=== PATIENT | female | born 1940 | race Caucasian/White ===

== ENCOUNTER → 2016-07-10 | Outpatient (CLI) | payer MEDICARE ==
[~2016-07-10] MED LIST: ALBU83IN INH; ASPI81TA85 PO; CRES5TAB PO; LISI-542 PO; MULT1TAB10 PO; NAPR500T PO; PRED20TA PO; TRAM50TA2 PO; ZOLO100T PO
--- NOTE | 2016-07-10 12:42 | ECGEPIP ---
Stationary ECG Study [facility] Test Date: 2016-07-10 Pat Name: KEY GRANADOS Department: Room: - Gender: F Marketing And Outreach Coordinator: : 1940 Requested By: Sandoval Boateng Order Number: [id number] Reading MD: Dania Thompson Measurements Intervals [place] Rate: 92 P: 66 AR: 140 QRS: -15 QRSD: 82 T: 54 QT: 352 QTc: 435 Interpretive Statements SINUS RHYTHM INFERIOR MYOCARDIAL INFARCTION, PROBABLY OLD NSSTTWA NO PRIOR Electronically Signed On 07-10-2016 12:41:43 EDT by Dania Thompson
[2016-07-10 13:27] LABS: CALCIUM LEVEL 9.2 MG/DL (8.8-10.2); CREATININE FOR GFR 1.23 MG/DL (0.55-1.02); GLOMERULAR FILTRATION RATE 45.1 (>39); POTASSIUM SERUM 4.5 MEQ/L (3.5-5.1)
== END ==
LOC: M LAB 11:54
PROVIDERS: ATTEND Ophthalmology
DX: I10 Essential (primary) hypertension (principal)

== ENCOUNTER → 2016-07-18 | Day surgery (SDC) | payer MEDICARE ==
[~2016-07-18] VITALS: Ht 157.5 cm; Wt 50.8 kg
[~2016-07-18] MED LIST changes: +ACETYLCHOLINE OPHTH SOLN 1% 2ML (MIOCHOL-E) As Ordered ONE; +BALANCED SALT IRRIGATION SOLUTION 500ML BAG (FOR OR EYE MACHINE) As Ordered ONE; +CEFUROXIME 1MG/0.1ML INTRACAMERAL INJ As Ordered ONE; +D5W/0.2% SODIUM CHLORIDE 1,000 ML IV SCH; +HEALON DUET (HEALON 10MG/ML 0.55ML & HEALON ENDOCOAT 30MG/ML 0.85ML) As Ordered ONE; +LIDOCAINE 0.75%/EPINEPHRINE 0.025% IN BSS 1ML SYR INTRACAMERAL (OR ONLY) As Ordered ONE; +LIDOCAINE 4% INJ 5 ML AMP As Ordered ONE; +MIDAZOLAM INJ 2 MG/2 ML VIAL (J2250) As Ordered ONE; +OFLOXACIN 0.3 % (OCUFLOX) OPTH SOL 5ML XX ONE; +PHENYLEPHRINE 2.5% OPHTH SOL 2ML XX ONE; +POVIDONE-IODINE 5% OPHTH PREP SOL 30ML As Ordered ONE; +PROPARACAINE 0.5% OPHTH SOL 15ML XX ONE; +TETRACAINE 0.5% OPHTH SOLN 4ML As Ordered ONE; +TOBRADEX OPHTH OINT 3.5 GM As Ordered ONE; +TROPICAMIDE 1% OPHTH SOLN 2ML XX ONE; +fentaNYL 100 MCG/2 ML INJECTION (J3010) As Ordered ONE
[2016-07-18 09:15] VITALS: BP 140/67
--- NOTE | 2016-07-19 10:52 | RO ---
DATE OF PROCEDURE: 07/18/2016 PREOPERATIVE DIAGNOSIS: Visually significant nuclear sclerotic cataract right eye. POSTOPERATIVE DIAGNOSIS: Visually significant nuclear sclerotic cataract right eye. PROCEDURE: Cataract extraction with use of phacoemulsification and placement of intraocular lens Himanshu AU00TO, 25.5 diopters, right eye. SURGEON: Luke Bueno DO ENGINE REPAIRER: ANESTHESIA: Local with monitored anesthesia care (MAC). COMPLICATIONS: None. POSTOPERATIVE CONDITION: Stable. INDICATION FOR SURGERY: Blurred vision right eye affecting patient's activities of daily living. DESCRIPTION OF PROCEDURE: The patient was seen in the preoperative area and properly identified. The correct operative eye was identified and marked. Attention was turned to that eye. The patient received topical antibiotics in the preoperative area. The patient then received topical dilating drops consisting of tropicamide and phenylephrine. The patient was then transferred to the operating room. The correct side was reidentified. The patient received topical anesthetics and antibiotics on the surface of the eye. The eye was prepped and draped in a sterile fashion. The upper and lower eyelids were isolated with Tegaderm tape, and the lids were held open with an adjustable speculum. Using a sideport blade, a paracentesis incision was made. Intraocular preservative-free lidocaine was then injected into the anterior chamber. Viscoelastic was then injected into the anterior chamber through the paracentesis. Using a 2.65 mm sharp-tipped keratome, the anterior chamber was entered via a temporal clear corneal incision. A continuous curvilinear capsulorrhexis was created with the aid of a 26-gauge cystotome and Utrata forceps. Hydrodissection was performed with balanced salt solution (BSS) on a blunt cannula until the nucleus was freely mobile. The crystalline lens was phacoemulsified and aspirated. Additional cohesive viscoelastic was placed into the capsular bag to deepen it. An Himanshu AU00TO, 25.5 diopters lens was placed into the capsular bag and confirmed by visualizing the continuous curvilinear capsulorrhexis. Additional irrigation and aspiration was used to remove cortical material and remaining viscoelastic. The clear corneal incision was hydrated with BSS on a blunt cannula. The lens was well positioned. The incisions were then tested for leaks and found to be negative. The eye was then palpated for appropriate pressure and adjusted accordingly with BSS. The eyelid speculum was then carefully removed. Tobradex ointment was placed in the eye. An eye patch and shield were then secured over the eye. The patient tolerated the procedure well and was discharged to the recovery unit in a stable condition. AISSATOU
== END | disposition home or self-care (01) ==
LOC: M SDC 07:17
PROVIDERS: ATTEND Ophthalmology
DX: H25.11 Age-related nuclear cataract, right eye (principal); I10 Essential (primary) hypertension; E78.00 Pure hypercholesterolemia, unspecified; M17.0 Bilateral primary osteoarthritis of knee; F32.9 Major depressive disorder, single episode, unspecified; J45.909 Unspecified asthma, uncomplicated; R06.02 Shortness of breath; Z88.5 Allergy status to narcotic agent; Z79.899 Other long term (current) drug therapy; Z79.82 Long term (current) use of aspirin; Z98.51 Tubal ligation status
CPT/HCPCS: 66984; J2250; J3010; V2632

== ENCOUNTER → 2016-08-01 | Day surgery (SDC) | payer MEDICARE ==
[~2016-08-01] VITALS: Ht 157.5 cm; Wt 50.8 kg
[~2016-08-01] MED LIST changes: -D5W/0.2% SODIUM CHLORIDE 1,000 ML IV SCH; +NS 1,000 ML IV SCH; -TETRACAINE 0.5% OPHTH SOLN 4ML As Ordered ONE; -fentaNYL 100 MCG/2 ML INJECTION (J3010) As Ordered ONE
[2016-08-01 09:30] VITALS: BP 139/71
--- NOTE | 2016-08-01 18:06 | RO ---
DATE OF PROCEDURE: 08/01/2016 PREOPERATIVE DIAGNOSIS: Visually significant nuclear sclerotic cataract left eye. POSTOPERATIVE DIAGNOSIS: Visually significant nuclear sclerotic cataract left eye. PROCEDURE: Cataract extraction with use of phacoemulsification, and placement of intraocular lens, AU00T0 25.0D ,left eye. SURGEON: Luke Bueno DO NEUROSURGERY RESEARCH DIRECTOR: ANESTHESIA: Local with monitored anesthesia care (MAC). COMPLICATIONS: None. POSTOPERATIVE CONDITION: Stable. INDICATION FOR SURGERY: Blurred vision left eye affecting patient's activities of daily living. DESCRIPTION OF PROCEDURE: The patient was seen in the preoperative area and properly identified. The correct operative eye was identified and marked. Attention was turned to that eye. The patient received topical antibiotics in the preoperative area. The patient then received topical dilating drops consisting of Tropicamide and Phenylephrine. The patient was then transferred to the operating room. The correct side was re-identified. The patient received topical anesthetics and antibiotics on the surface of the eye. The eye was prepped and draped in a sterile fashion. The upper and lower eyelids were isolated with Tegaderm tape, and the lids were held open with an adjustable speculum. Using a sideport blade, a paracentesis incision was made. Intraocular preservative-free lidocaine was then injected into the anterior chamber. Viscoelastic was then injected into the anterior chamber through the paracentesis. Using a 2.65 mm sharp-tipped keratome, the anterior chamber was entered via a temporal clear corneal incision. A continuous curvilinear capsulorrhexis was created with the aid of a 26g cystotome and utrata forceps. Hydrodissection was performed with balanced salt solution (BSS) on a blunt cannula until the nucleus was freely mobile. The crystalline lens was phacoemulsified and aspirated. Additional cohesive viscoelastic was placed into the capsular bag to deepen it. A AU00T0 25.0 lens D was placed into the capsular bag and confirmed by visualizing the continuous curvilinear capsulorrhexis. Additional irrigation and aspiration was used to remove cortical material and remaining viscoelastic. The clear corneal incision was hydrated with BSS on a blunt cannula. The lens was well positioned. The incisions were then tested for leaks, Resure sealant was placed on the main incision then retested and found to be negative. The eye was then palpated for appropriate pressure and adjusted accordingly with BSS. The eyelid speculum was carefully removed. A shield was then secured over the eye. The patient tolerated the procedure well and was discharged to the recovery unit in a stable condition. AISSATOU
== END | disposition home or self-care (01) ==
LOC: M SDC 06:29
PROVIDERS: ATTEND Ophthalmology
DX: H25.12 Age-related nuclear cataract, left eye (principal); I10 Essential (primary) hypertension; E78.00 Pure hypercholesterolemia, unspecified; M17.0 Bilateral primary osteoarthritis of knee; F32.9 Major depressive disorder, single episode, unspecified; J45.909 Unspecified asthma, uncomplicated; R06.83 Snoring; Z88.5 Allergy status to narcotic agent; Z79.899 Other long term (current) drug therapy; Z79.82 Long term (current) use of aspirin; Z98.51 Tubal ligation status
CPT/HCPCS: 66984; J2250; V2632

== ENCOUNTER 2018-09-28 14:09 | Inpatient (IN) | payer MEDICARE ==
[~2018-09-28] VITALS: Ht 157.5 cm; Wt 50.0 kg
[~2018-09-28 14:09] MED LIST changes: -ACETYLCHOLINE OPHTH SOLN 1% 2ML (MIOCHOL-E) As Ordered ONE; -BALANCED SALT IRRIGATION SOLUTION 500ML BAG (FOR OR EYE MACHINE) As Ordered ONE; -CEFUROXIME 1MG/0.1ML INTRACAMERAL INJ As Ordered ONE; -HEALON DUET (HEALON 10MG/ML 0.55ML & HEALON ENDOCOAT 30MG/ML 0.85ML) As Ordered ONE; -LIDOCAINE 0.75%/EPINEPHRINE 0.025% IN BSS 1ML SYR INTRACAMERAL (OR ONLY) As Ordered ONE; -LIDOCAINE 4% INJ 5 ML AMP As Ordered ONE; -MIDAZOLAM INJ 2 MG/2 ML VIAL (J2250) As Ordered ONE; +NAPR-837 PO; -NAPR500T PO; -NS 1,000 ML IV SCH; -OFLOXACIN 0.3 % (OCUFLOX) OPTH SOL 5ML XX ONE; -PHENYLEPHRINE 2.5% OPHTH SOL 2ML XX ONE; -POVIDONE-IODINE 5% OPHTH PREP SOL 30ML As Ordered ONE; -PROPARACAINE 0.5% OPHTH SOL 15ML XX ONE; -TOBRADEX OPHTH OINT 3.5 GM As Ordered ONE; -TROPICAMIDE 1% OPHTH SOLN 2ML XX ONE; +VITA100067 PO
[2018-09-28 15:41] VITALS: BP 142/87
--- NOTE | 2018-09-28 16:30 | HPEPDOC ---
General Date of Admission Sep 28, 2018 at 14:37 Date of Service: Sep 28, 2018 Chief Complaint The patient is a 78-year-old female admitted with a reason for visit of Right Fractured Hip. Source: Patient Exam Limitations: No limitations History of Present Illness 78-year-old female with past medical history of hypertension, hyperlipidemia, depression sent to the hospital from orthopedist office due to mechanical fall. Patient states that 4 months ago she fell on the sidewalk while chasing her pet and hurt her back. Since then patient has had multiple falls and has endorsed gait instability while walking. She was sent to a neurologist by her PMD who found that the patient had cervical spine stenosis with nerve impingement. Patient was subsequently referred to Orth0/human resources services specialist to whom she presented in the office today. The orthopedist ordered some x-rays and while the patient was getting x-rays she again suffered a mechanical loss and had a hip fracture. All the images are with ortho/human resources services specialist. patient is being admitted for surgical intervention by Dr. Ledbetter. Patient currently has no complaints. Denies any chest pain, shortness of breath, vomiting, fever, chills. Of note patient states that before all of this she was able to climb 2 flights of stairs without any difficulty. Patient does endorse having sensation of walking on a wooden block in her heels of both feet. Home Medications Scheduled Aspirin (Aspir 81) 81 Mg Tab, 81 MG PO DAILY, (Reported) Lisinopril (Lisinopril) 5 Mg Tab, 5 MG PO DAILY, (Reported) Multivitamins (Multivitamin Adults) 1 Tab Tab, 1 TAB PO DAILY, (Reported) Naproxen (Naprosyn) 500 Mg Tab, 500 MG PO DAILY, (Reported) take with food Rosuvastatin Calcium (Crestor) 5 Mg Tab, 5 MG PO DAILY, (Reported) Sertraline Hcl (Zoloft) 100 Mg Tab, 100 MG PO DAILY, (Reported) Vitamin D (Vitamin D) 1,000 Unit Cap, 1,000 UNIT PO DAILY, (Reported) Scheduled PRN Albuterol Sulf (Albuterol Sulfate) 2.5 Mg/3 Ml Nebu, 2.5 MG INH PRN PRN for SHORTNESS OF BREATH, (Reported) Tramadol HCl (Tramadol HCl) 50 Mg Tab, 50 MG PO PRN PRN for PAIN, (Reported) Allergies Coded Allergies: MS - Codeine (Verified Allergy, Unknown, BREAK OUT, 06/30/17) Social History * Smoker: Denies Alcohol: rarely Drugs: denies Review of Systems Constitutional: Denies: Chills, Fever, Malaise, Night Sweats, Weakness, Fatigue, Weight Loss, Lethargy, Other Eyes: Denies: Pain, Vision change, Conjunctivae inflammation, Eyelid inflammation, Redness, Other ENT: Denies: Head Aches, Ear Pain, Dysphagia, Sinus Congestion, Post Nasal Drip, Sore Throat, Epistaxis, Other Symptoms Skin: Denies: Rash, Lesions, Jaundice, Bruising, Itching, Dry, Breakdown, Nail Changes, Other Pulmonary: Denies: Dyspnea, Cough, Pleuritic Chest Pain, Other Symptoms Cardiovascular: Denies: Chest Pain, Palpitations, Orthopnea, Paroxysmal Noc. Dyspnea, Edema, Lt Headedness, Other Symptoms Gastrointestinal: Denies: Nausea, Vomiting, Abdominal Pain, Diarrhea, Constipa tion, Melena, Hematochezia, Other Symptoms Genitourinary: Denies: Dysuria, Frequency, Incontinence, Retention Hematologic: Denies: Bruising, Bleeding Excessively, Petecchia, Purpura, Enlarged Lymph Nodes, Other Hematologic Endocrine: Denies: Polydipsia, Polyphagia, Polyuria, Heat Intolerance, Cold Intolerance, Other Endocrine Sx Musculoskeletal: Denies: Neck Pain, Back Pain, Shoulder Pain, Arm Pain, Hand Pain, Leg Pain, Foot Pain, Joint Pain, Muscle Pain, Spasms, Other Symptoms Neurological: Denies: Weakness, Numbness, Incoordination, Change in speech, Confusion, Seizures, Other Symptoms Physical Examination General Exam: Positive: Alert, Cooperative, No Acute Distress Eye Exam: Positive: PERRLA ENT Exam: Positive: Atraumatic, Mucous membr. moist/pink Neck Exam: Positive: Supple, +2 carotid pulse wo bruit Chest Exam: Positive: Clear to auscultation, Normal air movement Heart Exam: Positive: Rate Normal, Normal S1, Normal S2, Other; Negative: Gallops, Murmurs, Rubs Abdomen Exam: Positive: Normal bowel sounds, BS Hyperactive, BS Hypoactive, Soft; Negative: Tenderness, Mass Extremity Exam: Positive: Normal pulses; Negative: Clubbing, Cyanosis, Edema Neuro Exam: Positive: Normal Speech, Strength at 5/5 X4 ext, Cranial Nerves 3- 12 NL Psych Exam: Positive: Mood NL, Oriented x 3 Vital Signs Vital Signs Date Time Temp Pulse Resp B/P (MAP) Pulse Ox O2 Delivery O2 Flow Rate FiO2 09/28/18 15:41 97.1 83 18 142/87 (105) 95 Plan / VTE VTE Prophylaxis Ordered?: Yes Plan Plan 78-year-old female with right greater trochanter hip fracture and cervical spine stenosis with nerve impingement sent to the hospital as direct admit for surgical intervention by Dr. Ledbetter #cervical spine stenosis with nerve impingement -Dr. Ledbetter consulted and aware of patient -Dr. Ledbetter has all imaging -f/u recs regarding surgical intervention -PT ordered #rt greater trochanter fracture -Dr. Ledbetter aware -no surgical intervention needed as per him #HTN/HLD/Depression -cont home meds DVT PPx- Lovenox Dispo: per orthopedics LEVI COLLINS MD Sep 28, 2018 16:30
[2018-09-28] MEDS ORDERED: CHOL100012 PO (17:00)
[2018-09-28] MEDS ORDERED: OCUVTAB PO (17:01)
[2018-09-28] MEDS ORDERED: CBD OIL PO (17:06)
[2018-09-28 17:11] LABS: CREATININE FOR GFR 1.28 MG/DL (0.55-1.30); GLOMERULAR FILTRATION RATE 42.8 (>39); POTASSIUM SERUM 4.5 MEQ/L (3.5-5.1)
[2018-09-28 17:36] LABS: HEMATOCRIT 38.8 % (36.0-47.0); HEMOGLOBIN 12.8 g/dl (12.0-15.5); MEAN CORPUSCULAR HEMOGLOBIN 29.2 pg (27.0-33.0); MEAN CORPUSCULAR VOLUME 88.6 fl (80.0-96.0); PLATELET COUNT, AUTOMATED 235 10^3/uL (150-450); RED BLOOD COUNT 4.38 10^6/uL (4.00-5.40); WHITE BLOOD COUNT 16.4 10^3/uL (4.0-10.0)
[2018-09-28] MEDS ORDERED: PILL CUTTER 1 EACH XX PRN (18:45)
[2018-09-28] MEDS: ACETAMINOPHEN TAB 650MG DOSE (2X325MG) PO PRN (21:32)
[2018-09-28] MEDS: diphenhydrAMINE 25 MG CAP PO PRN (21:32)
[2018-09-28 22:00] VITALS: BP 135/70
[2018-09-29] MEDS: ACETAMINOPHEN TAB 650MG DOSE (2X325MG) PO PRN ×3 (05:25→21:19)
[2018-09-29 06:00] VITALS: BP 132/71
[2018-09-29 07:18] LABS: INR 1.08; PROTHROMBIN TIME 13.7 SECONDS (11.8-14.0)
[2018-09-29 07:28] LABS: ALBUMIN 3.3 GM/DL (3.2-5.2); BILIRUBIN,TOTAL 0.6 MG/DL (0.2-1.0); CALCIUM LEVEL 9.1 MG/DL (8.8-10.2); CREATININE FOR GFR 1.38 MG/DL (0.55-1.30); GLOMERULAR FILTRATION RATE 39.3 (>39); POTASSIUM SERUM 4.7 MEQ/L (3.5-5.1); TOTAL PROTEIN 6.4 GM/DL (6.4-8.2)
[2018-09-29] MEDS: ROSUVASTATIN 10 MG TAB (CRESTOR) PO SCH (09:51)
[2018-09-29] MEDS: ENOXAPARIN 30 MG/0.3 ML SYR (J1650) SC SCH (09:52)
[2018-09-29] MEDS: SERTRALINE 100 MG TAB PO SCH (09:52)
[2018-09-29] MEDS: LISINOPRIL 5 MG TAB PO SCH (09:52)
--- NOTE | 2018-09-29 11:29 | CR ---
DATE OF CONSULTATION: 09/28/2018 CHIEF COMPLAINT: Right hip pain and ataxia/balance problems. HISTORY: This 78-year-old was seen in my office at the request of neurology on an urgent basis to evaluate cervical spinal stenosis. She had been having trouble since June 2018 and on July 15 she fell. She says she was okay after that. She was having some balance trouble. Then on August 12, she fell again backwards on a sidewalk, bumped her head and has had some numbness in her hands, as well as her feet since that episode, it has not gotten worse since that episode. She denies a history of stroke or cerebrovascular accident. While in our office we appreciated that she was utilizing a wheeled walker with brakes with some difficulty and at the conclusion of our appointment we arranged for the patient be seen by physical therapy to get fitted with a standard walker. On her way to the elevator, apparently the patient lost her balance, fell and that is how she injured her right hip. She was sent to the hospital for admission. The hospitalist service evaluated her for potential preoperative clearance. Next, imaging studies included CT scan of the cervical spine done at [place] reflecting significant spondylosis at C4-5, C5-6 and C6-7 and general diffuse disease through the cervical spine. Some osteophyte formation anteriorly and posteriorly at C7 is appreciated. Plain films reflected the same, likely 1 to 2 mm anterolisthesis C4-5 with flexion. MRI reflects severe spinal stenosis at C4-5 level, moderate at C5-6, mild to moderate at C6-7, mild to moderate at other locations in the cervical spine, cord signal changes appreciated in C4-5 level consistent with myelomalacia. ALLERGIES: CODEINE. MEDICAL HISTORY: Includes hypercholesterolemia and hypertension. Medical issues include pulmonary disease, hypercholesterolemia, hypertension. PAST SURGICAL HISTORY: Includes excision of ovarian cyst, tubal ligation, carpal tunnel release, cataracts bilaterally. SOCIAL HISTORY: She is a . She does not smoke and never did smoke. 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 FAMILY HISTORY: Noncontributory. REVIEW OF SYSTEMS: CONSTITUTIONAL: She is not complaining of fever, chills, weight loss. CARDIOVASCULAR: She is not complaining of chest pain. MUSCULOSKELETAL: She is actually not complaining of any severe neck pain. RESPIRATORY: She has not been having problems with coughing or respiratory acute illness recently. GASTROINTESTINAL: Denies weight loss or gain. GENITOURINARY: No changes in urinary frequency. SKIN: No complaints. NEUROLOGIC: She is complaining of sensory changes and balance issues, see history of present illness. PSYCHOLOGICAL: She is not complaining of the anxiety or depression problems. ENDOCRINE: She is not complaining of endocrine problems. HEMATOLOGIC: She denies bleeding problems. ALLERGIES: Denies environmental allergies. Denies latex allergy. Reports codeine sensitivity. MEDICATIONS: - rosuvastatin - sertraline - naproxen - lisinopril We have just initiated gabapentin while in the office. PHYSICAL EXAMINATION: Alert, oriented and cooperative. Mood and affect are appropriate. Appears to be her stated age of 78 or a bit younger. She has a clear voice. No mass or tenderness to palpation anteriorly in the cervical spine. Very little discomfort with palpation posteriorly in the cervical spine. Cervical motion did not seem to precipitate neck discomfort. Upper extremities with decreased sensation in the palms of hands and fingers, as well as the bottoms of the feet in the lower extremities. Positive Valdez's reflex in both upper extremities. Brachioradialis inverted in both upper extremities. Triceps reflexes is +1 to 2 in both upper extremities, biceps. Absent lower extremity reflexes, Babinski's upgoing bilaterally. We did not appreciate clonus. Deep tendon reflexes are +4 however at both knees, +2 at both ankles. Gait is somewhat wide-based and clearly antalgic. We were not able to do tandem walking or Romberg because of the ataxia. She was noted be using a wheeled walker and actually slipped in the exam room precipitating my recommendation that she get fitted with a standard walker VITAL SIGNS: Temperature 97.8, height 61 inches tall. Weight 110 pounds. BMI 21. X-RAYS: She had x-rays of the right hip, which reflected a minimally displaced greater trochanter fracture. IMPRESSION 1. Right hip greater trochanter fracture. 2. Cervical myelopathy due to spinal stenosis predominately at C4-5 and C5-6, lesser degree C6-7. RECOMMENDATIONS: Direct admission to the hospital. Optimization by the hospitalist team. Fit with an aspen rigid collar to protect the cervical spine and provide stability postoperatively. Next, we talked about surgery and we considered the posterior, as well as anterior surgery. I think in this 78-year-old that anterior surgery in her case would be reasonable at C4-5 and C5-6, potentially extending to C6-7. In my opinion, the myelopathy is due to the issue at C4-5 and likely the mild hypermobility there. Next, I talked with the patient about the proposed surgery, about risks, including but not limited to, need for additional surgery, paralysis, and other problems. We talked about using donor bone. The patient agrees to proceed. Next, at this time, I do not recommend intervention on the hip. Next, due to respect from recovery from the surgery, I was very careful not to promise significant improvement. The purpose of the surgery is to keep things from getting worse. I suspect that to some degree the spinal cord injury occurred when she fell on August 12 and her symptoms may not improve. There is a possibility of improvement, however. Again, I stressed that the surgical intervention is to keep things from getting worse. She understands. Next, we anticipate medical optimization through the hospitalist service. AISSATOU
[2018-09-29 14:09] VITALS: BP 129/66
--- NOTE | 2018-09-29 19:29 | IPNPDOC ---
Text Note Date of Service The patient was seen on 09/29/18. NOTE This is a 78-year-old female who sustained a fall. Resultant injury was a right greater trochanter fracture. This is nondisplaced and not felt to require surgical intervention. However, the patient has significant cervical spine stenosis and is to undergo anterior approach decompression surgery for that. The patient relates that she has had worsening pain and decreased function, especially to her upper extremities. Physical exam: HEENT: Her neck is fairly supple with no adenopathy or thyromegaly and I do not elicit any cervical spine or cervical paravertebral muscle tenderness. Cardiovascular: Regular rate and rhythm with a normal S1 and S2 and no appreciable murmur or bruit. Respiratory: Clear to auscultation with no rhonchi, rales, wheezes or cough. Abdomen: Soft, nontender, nondistended. Extremities: Patient tolerates hip flexion and sitting at the bedside with dangling without significant discomfort or immobility. Neuro: Patient notes paresthesias and decreased strength to her upper extremities, especially to her hands and fingers Assessment and plan: #1. Right greater trochanter fracture. Again, this is nondisplaced and is not felt to require surgical intervention. She will continue with physical therapy under the direction of the orthopedic service. #2. Cervical spine stenosis. Patient has symptoms of paresthesias and weakness, especially to her upper extremities. She will undergo surgery tomorrow. She does not have significant underlying cardiopulmonary risk factors and so she is medically cleared for the procedure. Patient does have hypertension, but it is currently well controlled. We will continue to follow with her postoperatively. VS,Denisbone, I+O VS, Denisbone, I+O Laboratory Tests 09/29/18 06:45 Calcium Level 9.1, Aspartate Amino Transf (AST/SGOT) 20, Alanine Aminotransferase (ALT/SGPT) 24, Alkaline Phosphatase 78, Total Bilirubin 0.6, Total Protein 6.4, Albumin 3.3 Vital Signs Date Time Temp Pulse Resp B/P (MAP) Pulse Ox O2 Delivery O2 Flow Rate FiO2 09/29/18 14:09 98.6 85 16 129/66 (87) 93 I&O- Last 24 Hours up to 6 AM 09/29/18 06:00 Intake Total 360 ml Balance 360 ml KESHAWN FRANCOIS MD Sep 29, 2018 19:29
[2018-09-29] MEDS: diphenhydrAMINE 25 MG CAP PO PRN (21:19)
[2018-09-29] MEDS: NS 1,000 ML IV SCH (21:20)
[2018-09-30] VITALS (9 sets, daily range): BP systolic 137–150; BP diastolic 70–81
[2018-09-30 06:24] LABS: BASO # 0.1 10^3/uL (0.0-0.2); BASO % 0.6 % (0.0-1.0); EOS # 0.8 10^3/uL (0.0-0.50); EOS % 7.7 % (0.0-3.0); HEMATOCRIT 35.5 % (36.0-47.0); HEMOGLOBIN 11.4 g/dl (12.0-15.5); LYMPH # 1.1 10^3/uL (1.5-4.5); MEAN CORPUSCULAR HGB CONC 32.1 g/dl (32.0-36.5); MEAN CORPUSCULAR VOLUME 90.3 fl (80.0-96.0); MONO # 1.1 10^3/uL (0.0-0.8); NEUTROPHILS # 6.7 10^3/uL (1.8-7.7); NEUTROPHILS % 69.3 % (36.0-66.0); PLATELET COUNT, AUTOMATED 211 10^3/uL (150-450); RED BLOOD COUNT 3.93 10^6/uL (4.00-5.40); WHITE BLOOD COUNT 9.7 10^3/uL (4.0-10.0)
[2018-09-30 06:37] LABS: INR 1.07; PROTHROMBIN TIME 13.6 SECONDS (11.8-14.0)
[2018-09-30 06:52] LABS: CALCIUM LEVEL 8.4 MG/DL (8.8-10.2); CREATININE FOR GFR 1.38 MG/DL (0.55-1.30); GLOMERULAR FILTRATION RATE 39.3 (>39); POTASSIUM SERUM 4.3 MEQ/L (3.5-5.1)
[2018-09-30] MEDS: METAMUCIL (PSYLLIUM) PACKET PO SCH (09:00)
[2018-09-30] MEDS ORDERED: PERCOCET 5MG/325MG TAB As Ordered ONE (09:30)
[2018-09-30] MEDS ORDERED: GABAPENTIN 300 MG CAP PO ONE (09:30)
[2018-09-30] MEDS ORDERED: methylPREDNISolone INJ 125 MG/2 ML VIAL (J2930) IV ONE (09:30)
[2018-09-30] MEDS ORDERED: PERCOCET 5MG/325MG TAB PO ONE (09:30)
[2018-09-30] MEDS ORDERED: methylPREDNISolone INJ 125 MG/2 ML VIAL (J2930) As Ordered ONE (09:31)
[2018-09-30] MEDS ORDERED: ceFAZolin 2 GM/D5W 50 ML IV BAG (J0690 PER 500MG) As Ordered ONE (09:41)
[2018-09-30] MEDS ORDERED: fentaNYL 250 MCG/5 ML INJECTION (J3010) As Ordered ONE (10:09)
[2018-09-30] MEDS ORDERED: LIDOCAINE 2% INJ 100 MG/5 ML SDV (FOR ANES.) As Ordered ONE (10:09)
[2018-09-30] MEDS ORDERED: HYDROCORTISONE INJ 250 MG VIAL (J1720) As Ordered ONE (10:09)
[2018-09-30] MEDS ORDERED: METOCLOPRAMIDE INJ 10MG/2ML VIAL (J2765) As Ordered ONE (10:09)
[2018-09-30] MEDS ORDERED: MIDAZOLAM INJ 2 MG/2 ML VIAL (J2250) As Ordered ONE (10:10)
[2018-09-30] MEDS ORDERED: ONDANSETRON 4MG/2ML VIAL (J2405) As Ordered ONE (10:10)
[2018-09-30] MEDS ORDERED: ROCURONIUM BROMIDE 50 MG/5 ML VIAL As Ordered ONE (10:10)
[2018-09-30] MEDS ORDERED: PROPOFOL 200 MG/20 ML VIAL As Ordered ONE (10:10)
[2018-09-30] MEDS ORDERED: SUGAMMADEX SODIUM 500 MG/5 ML VIAL (BRIDION) As Ordered ONE (10:10)
[2018-09-30] MEDS ORDERED: PHENYLephrine HCL 500 MCG/5 ML (100MCG/ML) SYRINGE (J2370) As Ordered ONE (12:12)
[2018-09-30] MEDS ORDERED: ePHEDrine SULFATE 25 MG/5 ML(5MG/ML) SYRINGE As Ordered ONE (12:12)
[2018-09-30] MEDS ORDERED: PERCOCET 5MG/325MG TAB PO PRN ×2 (13:45→15:30)
[2018-09-30] MEDS ORDERED: ONDANSETRON 4MG/2ML VIAL (J2405) IV PRN ×2 (13:45→14:30)
[2018-09-30] MEDS ORDERED: fentaNYL 100 MCG/2 ML INJECTION (J3010) IV PRN (13:45)
--- NOTE | 2018-09-30 15:27 | REP ---
INTRAOPERATIVE VIEWS CERVICAL SPINE: Two intraoperative views of the cervical spine are performed in the lateral projection. The first image shows an anterior probe with the tip of the probe at the C4-5 disc level. Visualized cervical vertebral bodies are normal in height. There is mild diffuse spurring. A second images is performed 1 hour and 55 minutes later and shows placement of an anterior metallic plate with screws at the C4, C5 and C6 levels, with evidence of discectomy and disc spacers at C4-5 and C5-6. The structures are well aligned. Electronically Signed by Gamal Morales MD 10/01/2018 07:50 A
[2018-09-30] MEDS ORDERED: MORPHINE 4 MG/ML 1ML VIAL/SYRINGE (J2270) IV PRN (15:30)
[2018-09-30] MEDS: ENOXAPARIN 30 MG/0.3 ML SYR (J1650) SC SCH (16:30)
[2018-09-30] MEDS: NS 1,000 ML IV SCH (16:35)
[2018-09-30] MEDS: LR 1,000 ML IV SCH ×2 (18:52→21:12)
[2018-09-30] MEDS: LISINOPRIL 5 MG TAB PO SCH (19:02)
[2018-09-30] MEDS: SERTRALINE 100 MG TAB PO SCH (19:03)
[2018-09-30] MEDS: ROSUVASTATIN 10 MG TAB (CRESTOR) PO SCH (19:03)
[2018-09-30] MEDS: diphenhydrAMINE 25 MG CAP PO PRN (21:10)
[2018-10-01 02:00] VITALS: BP 139/76
[2018-10-01 06:00] VITALS: BP 130/73
[2018-10-01 06:13] LABS: HEMATOCRIT 31.6 % (36.0-47.0); HEMOGLOBIN 10.2 g/dl (12.0-15.5); MEAN CORPUSCULAR HEMOGLOBIN 29.8 pg (27.0-33.0); MEAN CORPUSCULAR HGB CONC 32.3 g/dl (32.0-36.5); MEAN CORPUSCULAR VOLUME 92.4 fl (80.0-96.0); PLATELET COUNT, AUTOMATED 185 10^3/uL (150-450); RED BLOOD COUNT 3.42 10^6/uL (4.00-5.40); WHITE BLOOD COUNT 12.6 10^3/uL (4.0-10.0)
[2018-10-01 06:22] LABS: INR 1.15; PROTHROMBIN TIME 14.4 SECONDS (11.8-14.0)
--- NOTE | 2018-10-01 07:43 | IPNPDOC ---
Text Note Date of Service The patient was seen on 09/30/18. NOTE The patient was seen postoperatively. Patient has undergone corpectomy with an terior cervical spine fusion due to cervical stenosis. She also has nondisplaced trochanter fracture. PHYSICAL EXAM: HENT: Neck is encased in cervical spine collar. Incision site is clean and nonbleeding. Cardiovascular: Regular rate and rhythm with a normal S1 and S2. Respiratory: Clear to auscultation. Abdomen: Nondistended, nontender, bowel tones present Extremities: No peripheral edema, pulses are palpable. Neuro: Patient states she already notes some increased mobility and strength to her hands and fingers, some decreased tingling Assessment/plan: #1. Cervical spine stenosis. The patient had had symptoms of paresthesias and weakness, especially to her upper extremities. She is now status post decompression with corpectomy and anterior cervical spine fusion. Further management and mobility/rehabilitation will be per the surgery service. She otherwise appears comfortable and denies significant pain. #2. Right greater trochanter fracture. The patient had sustained a fall resulting in a fracture. It is nondisplaced and not felt to require surgical intervention at this time. She will continue with physical therapy as directed. VS,Fishbone, I+O VS, Fishbone, I+O Laboratory Tests 10/01/18 05:58 Red Blood Count 3.42 L, Mean Corpuscular Volume 92.4, Mean Corpuscular Hemoglobin 29.8, Mean Corpuscular Hemoglobin Concent 32.3, Red Cell Distribution Width 13.4 Vital Signs Date Time Temp Pulse Resp B/P (MAP) Pulse Ox O2 Delivery O2 Flow Rate FiO2 10/01/18 06:00 97.8 83 16 130/73 (92) 95 10/01/18 05:03 1.0 I&O- Last 24 Hours up to 6 AM 10/01/18 06:00 Intake Total 3948 ml Output Total 550 ml Balance 3398 ml KESHAWN FRANCOIS MD Oct 01, 2018 07:43
[2018-10-01 09:00] VITALS: BP_SYST 130; BP_SYST 131; BP_DIAS 71; BP_DIAS 73
[2018-10-01] MEDS ORDERED: CEPACOL LOZENGE PO PRN (09:00)
[2018-10-01] MEDS ORDERED: MIRALAX *UNIT DOSE* 17GM PACKET PO SCH (09:00)
[2018-10-01] MEDS ORDERED: PERC5TAB12 PO (09:07)
[2018-10-01] MEDS ORDERED: BENA25CA4 PO (09:07)
[2018-10-01 10:00] VITALS: BP 130/72
[2018-10-01] MEDS: METAMUCIL (PSYLLIUM) PACKET PO SCH (10:18)
[2018-10-01] MEDS: ENOXAPARIN 30 MG/0.3 ML SYR (J1650) SC SCH (10:18)
[2018-10-01 10:19] VITALS: BP 131/71
[2018-10-01] MEDS: SERTRALINE 100 MG TAB PO SCH (10:19)
[2018-10-01] MEDS: LISINOPRIL 5 MG TAB PO SCH (10:19)
[2018-10-01] MEDS: ROSUVASTATIN 10 MG TAB (CRESTOR) PO SCH (10:20)
--- NOTE | 2018-10-01 10:55 | DS.PDOC ---
Discharge Summary General Date of Admission Sep 28, 2018 at 14:37 Date of Discharge October 01, 2018 Primary Care Physician: Jr Aponte Collins Specialist/Consultants Involve: Travis Ledbetter MD Discharge Summary PROCEDURES PERFORMED DURING STAY: Corpectomy, decompression and anterior fusion to C4-5 and C5-6. ADMITTING DIAGNOSES: 1. Right greater trochanter fracture, cervical myelopathy due to spinal stenosis. DISCHARGE DIAGNOSES: 1. Right greater trochanter fracture nondisplaced, cervical myelopathy due to spinal stenosis, dyslipidemia, essential hypertension. COMPLICATIONS/CHIEF COMPLAINT: Right Fractured Hip. HISTORY OF PRESENT ILLNESS/HOSPITAL COURSE: This is a 78-year-old female who is in her physician's office being evaluated for cervical myelopathy when she slipped and fell with her walker and sustained a right nondisplaced greater trochanter fracture. The patient was admitted to the medical floor. The right greater trochanter fracture was felt not to require surgical intervention. She has tolerated some weightbearing and mobility. Subsequent plans were for her to have decompression and anterior fusion to C4-5 and C5-6. The patient underwent this surgery without complications or postop events. Plans are for her to go to the acute rehabilitation unit for ongoing physical therapy. She did not have any exacerbation of her other underlying medical problems during this hospital stay.. DISCHARGE MEDICATIONS: Please see below. ALLERGIES: Please see below. PHYSICAL EXAMINATION ON DISCHARGE: VITAL SIGNS: Please see below. GENERAL: The patient has been cooperative and in good spirits with no distress HEENT: Oral mucosa is moist, no scleral injection or nasal congestion NECK: The patient is in a cervical collar, operative wound site is clean CARDIOVASCULAR EXAMINATION: Regular rate and rhythm RESPIRATORY EXAMINATION: Remains clear to auscultation ABDOMINAL EXAMINATION: Soft, nontender, nondistended EXTREMITIES: No peripheral edema, pulses are palpable NEUROLOGICAL EXAMINATION: Patient has reported decreased tingling to her hands and arms. LABORATORY DATA: Please see below. IMAGING: PROGNOSIS: ACTIVITY: As tolerated with walker. DIET: As tolerated DISCHARGE PLAN: Patient is to be transitioned to the acute rehabilitation unit for ongoing physical therapy. Again, please note that the patient has not undergone surgical intervention for her right greater trochanter fracture as it was not felt to be necessary. The patient will follow-up with her primary care provider Dalton Aponte after discharge from the facility. DISPOSITION: . DISCHARGE INSTRUCTIONS: 1. Discharge medications and prescriptions reviewed. ITEMS TO FOLLOWUP ON ON OUTPATIENT: 1. . DISCHARGE CONDITION: Stable. TIME SPENT ON DISCHARGE: Greater than 40 minutes. Vital Signs/I&Os Vital Signs Date Time Temp Pulse Resp B/P (MAP) Pulse Ox O2 Delivery O2 Flow Rate FiO2 10/01/18 10:19 131/71 10/01/18 09:00 97.7 85 16 95 10/01/18 05:03 1.0 I&O- Last 24 Hours up to 6 AM 10/01/18 05:59 Intake Total 3888 ml Output Total 550 ml Balance 3338 ml Laboratory Data Labs 24H Laboratory Tests 2 10/01/18 05:58: Nucleated Red Blood Cells % (auto) 0.0, Prothrombin Time 14.4H, Prothromb Time International Ratio 1.15 CBC/BMP Laboratory Tests 10/01/18 05:58 Red Blood Count 3.42 L, Mean Corpuscular Volume 92.4, Mean Corpuscular Hemoglobin 29.8, Mean Corpuscular Hemoglobin Concent 32.3, Red Cell Distribution Width 13.4 Discharge Medications Scheduled Aspirin (Aspir 81) 81 Mg Tab, 81 MG PO DAILY, (Reported) Cannabidiol (Cbd Oil) Btl, 1 DROP PO BID, (Reported) USES ONE DROPPERFUL DIRECTED Cholecalciferol (Vitamin D3) (Vitamin D3) 1,000 Unit Tab.chew, 1,000 UNIT PO DAILY, (Reported) Diphenhydramine HCl (Benadryl) 25 Mg Capsule, 25 MG PO QPM Lisinopril (Lisinopril) 5 Mg Tab, 5 MG PO DAILY, (Reported) Naproxen (Naprosyn) 500 Mg Tab, 500 MG PO DAILY, (Reported) take with food Rosuvastatin Calcium (Crestor) 5 Mg Tab, 5 MG PO DAILY, (Reported) Sertraline Hcl (Zoloft) 100 Mg Tab, 100 MG PO DAILY, (Reported) Vits A,C,E/Lutein/Minerals (Ocuvite with Lutein Tablet) 1 Each Tablet, 1 TAB PO DAILY, (Reported) Scheduled PRN Albuterol Sulf (Albuterol Sulfate) 2.5 Mg/3 Ml Nebu, 1 INH INH Q4-6H PRN for SHORTNESS OF BREATH, (Reported) Oxycodone HCl/Acetaminophen (Percocet 5-325 mg Tablet) 1 Each Tablet, 1 TAB PO Q4H PRN for PAIN Allergies Coded Allergies: codeine (Verified Allergy, Intermediate, RASH, CONFUSION, 09/30/18) KESHAWN FRANCOIS MD Oct 01, 2018 10:55
--- NOTE | 2018-10-02 11:37 | RO ---
DATE OF PROCEDURE: 09/30/2018 PREOPERATIVE DIAGNOSIS: Cervical myelopathy due to severe cervical spinal stenosis at C4-5 and C5-6. POSTOPERATIVE DIAGNOSIS: Cervical myelopathy due to severe cervical spinal stenosis at C4-5 and C5-6. The patient technically has a central cord/Fl[place] grade D. PROCEDURES PERFORMED: Include the following: Partial corpectomy of C5 including removal of disc material at C4-5 and removal of superior vertebral body corpus at C5, and posterior longitudinal ligament for decompression of severe spinal stenosis causing myelopathy, partial corpectomy of C6 including disc removal and removal of the superior vertebral body corpus at C6 level and posterior longitudinal ligament for decompression of the spinal cord. Approximately 50% of the vertebral corpus between C4 and C5 was removed due to severe degenerative changes, anterior cervical arthrodesis at C4-5, including endplate preparation, additional level anterior cervical fusion at C5-6 including endplate preparation, use of structural allograft at the C4-5 and C5-6, application of anterior cervical instrumentation C5, 6, 7. SURGEON: Dr. Travis Ledbetter [employer]: Chao Curry, Physician Supervisor [employer] ANESTHESIA: General. ESTIMATED BLOOD LOSS: Less than 40 mL, replaced with crystalloid. INDICATIONS FOR PROCEDURE: Include cervical myelopathy secondary to severe cervical spinal stenosis at C4-5 and C5-6, partial corpectomy indicated in this case because of complete disc space collapse and severe osteophyte and cervical spondylosis beyond typical. Consent reviewed in detail including a nova discussion of the pathology involved and the procedures proposed, which include a partial corpectomy at C4-5, C5-6 and possibly C6-7 if that level is felt to unstable during the surgery. We talked about alternatives including doing nothing as well as laminectomy, and we also spoke about potential risks of the procedure including but not limited to pain, failure, swallowing trouble, hoarseness, paralysis, , incomplete relief, need for more surgery and other issues. The patient understands that this procedure is primarily to stop the progression of myelopathy and that there may be neurologic deficit at the conclusion of the procedure. She also understands that there are multiple levels that are degenerative and that we are addressing at primary levels responsible for her neurologic deficits. COMPONENTS USED: Include DePuy [place] anterior cervical plate size 32 mm and size 5 x 7 VG2 graft times two. DESCRIPTION OF PROCEDURE: Identified in the holding area, site and side verified, brought to the operating room. Once general anesthesia was administered, she was positioned for the operative procedure, bump between the shoulder blades. Shoulders gently taped. The patient received perioperative antibiotics as well as a preoperative steroid, 250 mg of methylprednisolone given because of the significant cervical myelopathy present. Next, once the time-out was accomplished and she was sterilely prepped and draped and I and the division service manager were comfortable with the patient's positioning, we began the procedure. The incision was outlined with a marking pen based on the right anterior approach to the cervical spine. I utilized 3.5 loupe magnification. Mr. Curry, my assistant front office manager, stood on the patient's left side, I on the patient's right side. I utilized 3.5 loupe magnification. The incision was made with a 10 blade knife, developed down through skin and subcuticular tissues. The platysma was identified, elevated and divided exposing the sternocleidomastoid and the omohyoid muscle the dissection continued superior to the omohyoid. The carotid sheath was identified. Significant cervical fibrosis was appreciated during the dissection. The dissection continued medial to the carotid sheath into the anterior prevertebral fascia. The prevertebral fascia was elevated in several leaves protecting the esophagus. Mr. Curry utilized S retractors and other retractors to help with exposure. The large osteophyte at C5-6 was identified and exposed. A bayonet spinal needle was placed at C5-6 level and a cross-table lateral x-ray was taken verifying our position. The exposure was further developed, exposing C4-5 and elevated the longus coli muscle at its medial border to allow retractor placement. Leksells were utilized to remove large disc osteophyte complex at C4-5 and C5-6. Distraction pins were placed at C4-5. Curettes were utilized to remove additional disc material as well as pituitaries and then the oval bur was utilized to remove the superior corpus of C5 to allow adequate exposure of the posterior longitudinal ligament for decompression. Inferior C4 portion was also removed bringing osteophyte at C4 inferior. Once this was accomplished, I was able to utilize curved curettes to elevate the posterior longitudinal ligament, and this was removed using #2 Kerrisons. This exposed the thecal sac, which was directly visualized and effectively decompressed. Next, once this was accomplished, rasps were utilized; the 5 x 7 rasp followed by a 5 x 7 sound utilized, and this had significantly helped distract and expose the level. Next, a 5 x7 graft was selected, soaked in concentrated bacitracin and implanted. Once the graft was implanted, distractor pin was removed from C4, plugged with bone wax, oval bur was utilized to further contour the anterior vertebral body at C4 to allow plate placement. Next, we moved to the C5-6 level with a distraction pin placed at C6. I explored to the superior aspect of C6-7. That level appeared to be stable and not mobile. C5-6 level was appreciated to be mobile, and I was able to distract across C5-6. 11 blade was utilized to remove disc annulus complex followed by pituitaries and curettes to remove endplate. Next, again required to use the oval bur to remove some of the vertebral body corpus inferior C5 and superior vertebral body corpus of C6, quite significant amount, to facilitate this exposure in this 78-year-old female. The dissection continued down to the posterior longitudinal ligament, which was then elevated with curettes and removed with Kerrisons exposing the thecal sac. Rasps again utilized, sound and then placement of a 5 x 7 graft in a similar fashion; it was tamped into place. Distraction pins were then removed, and the anterior vertebral corpus was further contoured with the oval bur. Next, irrigation was accomplished. I selected the 32 mm plate. It fit appropriately. The soft tissue protectors were secured by Mr. Curry, and I utilized a double drill guide at the C5 level, drilled with a 12 mm drill and placed 13 mm screws at the C5 level. 13 mm had been based on measurement of normal corpus to be about 15 mm. Next, drill guide single was utilized to drill and place the screws at the C4 level, 14 mm screws angled superiorly placed here. The C6 screws were then drilled with a single drill guide and the 14 mm screws placed at C6. The locking devices were engaged and next a cross-table lateral x-ray was obtained to verify plate and graft placement. Next, vertebral body height had been restored and alignment was good. Next, irrigation was again accomplished, all retractors removed, all distractor pins were removed and distractor pin holes plugged with wax. The wound was inspected for bleeding. No active bleeding appreciated. Next, incision was approximated with interrupted stitch, deep dermis with interrupted stitch. Dermabond applied to skin. At the time of extubation, the patient was placed in a cervical collar to provide additional stability. We had elected not to proceed to the C6-7 level as her neurologic deficit was felt to be due to the severe stenosis at C4-5 and also of C5-6 with myelomalacia present predominately at the C4-5 and posterior to the C5 level. It was felt that extension of the fusion to the C6-7 level would increase the risk of potential osteoporotic vertebral body and surgical construct collapse or instability. Next, the patient was able to be extubated, was moved to the recovery room in good condition, was appreciated to be moving all four extremities and conversant. Next, Mr. Curry was present and participated in the entirety of the case in the capacity of psychiatric assistant. Next, for further details please refer to medical record.
== END 2018-10-01 12:00 | DRG 471 ==
LOC: M MS5PR 14:37
PROVIDERS: ADMIT Orthopaedic Surgery; ATTEND Internal Medicine
PROC: 00NW0ZZ Release Cervical Spinal Cord, Open Approach (ICD-10-PCS; 2018-09-30)
PROC: 0RG20K0 Fusion of 2 or more Cervical Vertebral Joints with Nonautologous Tissue Substitute, Anterior Approach, Anterior Column, Open Approach (ICD-10-PCS; principal; 2018-09-30 08:50)
DX: M48.02 Spinal stenosis, cervical region (principal); S72.114A Nondisplaced fracture of greater trochanter of right femur, initial encounter for closed fracture; M50.021 Cervical disc disorder at C4-C5 level with myelopathy; I10 Essential (primary) hypertension; E78.5 Hyperlipidemia, unspecified; F32.9 Major depressive disorder, single episode, unspecified; W18.09XA Striking against other object with subsequent fall, initial encounter; Y92.538 Other ambulatory health services establishments as the place of occurrence of the external cause; Z79.82 Long term (current) use of aspirin; Z79.1 Long term (current) use of non-steroidal anti-inflammatories (NSAID); Z79.899 Other long term (current) drug therapy; Z88.5 Allergy status to narcotic agent; R27.0 Ataxia, unspecified; Z98.41 Cataract extraction status, right eye; Z98.42 Cataract extraction status, left eye

== ENCOUNTER 2018-10-01 09:43 | Inpatient (IN) | payer MEDICARE ==
[~2018-10-01] VITALS: Ht 157.5 cm; Wt 59.4 kg
[~2018-10-01 09:43] MED LIST changes: +BENA25CA4 PO; +CBD OIL PO; +CHOL100012 PO; +OCUVTAB PO; +PERC5TAB12 PO
[2018-10-01 12:05] VITALS: BP 156/69
[2018-10-01] MEDS ORDERED: ALBUTEROL SULFATE 2.5 MG/0.5 ML INH NEB SOLN NEB PRN (13:00)
[2018-10-01] MEDS ORDERED: PILL CUTTER 1 EACH XX PRN (13:15)
[2018-10-01] MEDS: oxyCODONE 5MG TAB PO PRN (13:45)
[2018-10-01] MEDS: ACETAMINOPHEN TAB 650MG DOSE (2X325MG) PO PRN ×2 (13:52→21:31)
[2018-10-01 14:00] VITALS: BP_SYST 130; BP_SYST 163; BP_DIAS 70; BP_DIAS 71
--- NOTE | 2018-10-01 15:33 | HPEPDOC ---
Automotive Engineer Note DATE OF ADMISSION: 10/01/18 SOURCE OF ADMISSION INFORMATION: patient and [facility] records CHIEF COMPLAINT: cervical decompression and fusion HISTORY OF PRESENT ILLNESS: 78 year old female with a past medical history of hypertension hyperlipidemia depression who fell while chasing her pet, hurt her back and suffered a right greater trochanter hip fracture, had been followed by neurology for cervical stenosis with upper extremity weakness and paresthesias with worsening falls and admitted to [facility] emergency department on 09/28/18. She was evaluated by orthopedic surgery to have been following her as an outpatient for both her cervical stenosis and right hip fracture. 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 She underwent an anterior corpectomy decompression and fusion surgery on 09/30/18 without post-op complications. She was placed in a cervical collar, evaluated by therapy, found to have impairments in mobility and ADLs below her prior level of function and deemed medically appropriate for discharge to ARU on 10/01/18. Upon arrival patient reports she could not swallow her breakfast this morning due to pain and reports a cough. She states she has an inhaler at home she has not needed to use in years. REVIEW OF SYSTEMS: The following is a completed review of systems and has been reviewed. Review of systems otherwise unremarkable. PAIN: Patient self reports mild neck pain EYES: No recent vision changes EARS, NOSE, & THROAT: +throat pain and dysphagia CARDIOVASCULAR: Denies chest pain or palpitations PULMONARY: +cough GASTROINTESTINAL: Denies constipation/diarrhea GENITOURINARY: +urinary stress incontinence (chronic) MUSCULOSKELETAL: generalized weakness NEUROLOGICAL:bilateral UE weakness and paresthesias SKIN: scattered ecchymosis PSYCHIATRIC: Unremarkable All other review of systems found to be negative. PAST MEDICAL HISTORY: as per HPI PAST SURGICAL HISTORY: excision of ovarian cyst, tubal ligation, carpal tunnel release, cataracts bilaterally. ALLERGIES: Please see below. MEDICATIONS: Please see below. 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 GENERAL: Pleasant and cooperative. No acute distress. HEENT: PERRL. Extraocular movements intact. Clear conjunctiva, +cervical collar CARDIOVASCULAR: Regular rate and rhythm. No murmurs, rubs, or gallops LUNGS: No wheezes. scattered rhonchi ABDOMEN: Soft, nontender, nondistended. Positive bowel sounds. Normal active bowel sounds NEUROLOGICAL: Alert and oriented times three. Cranial nerves II through XII grossly intact. Sensation decreased to light touch LUE, otherwise intact throughout other 3 limbs Brisk patellar reflexes, bilat clonus x 1 beat, +Valdez's bilat EXTREMITIES: 3+\5 strength bilateral upper extremities. 3+\5 strength right lower extremity. 3+/5 strength in left lower extremity. SKIN:, RUE swelling and scattered ecchymosis anterior neck incision c/d/i without induration LABORATORY DATA: Please see below. IMAGING: Imaging documentation personally reviewed by record FUNCTIONAL STATUS: Premorbid: Modified Independent with all activities of daily life as well as mobility with RW On Admission: Contact guard for functional transfers and bed mobility, requiring assistance with toileting and dressing. GOALS: Mod-I with RW community distances, balance training, Mod-I stairs, bathing, toileting, dressing, medical optimization, assess for DME needs ASSESSMENT:78-year-old F with past medical history of cervical stenosis and right hip fracture who presents status post cervical decompression. PLAN: 1. Rehab: PT- strengthen/stretch/improve ROM bilat LE, balance training OT- strengthen/stretch/improve ROM bilat UE, avoid lifitn anything greater than 2 pounds, avoid arm wheelchair propulsion IMMIGRATION LAW SPECIALIST: dysphagia evaluation- placed on puree and nectar- MBS scheduled for tomorrow 2. Neuro: cervical stenosis with falls and generalized weakness with paresthesias, s/p cervical ACDF, neck brace to be work at all times -Avoid NSAIDs and ASA to assist in fusion -avoid delirogenic meds 3. CArdio: hld and HTN c/ statin and ROSALIA-I medicine consulted to assist in management 4. Resp: concern for atelectasis, CXR ordered, Duonebs started in addition to Robitussin, encourage incentive spirometry 5. ENT: concern for prevertebral soft tissue swelling post-op, neck soft tissue X-ray ordered, will consider oral steroids 6. GI ppx: Protonix 7. DVT ppx: lovenox, will order LE doppler and RUE doppler to r/o DVT given swelling 8. Pain: tylneol, oxycodone prn 9. Psych: Zoloft and benadryl for insomnia prn 10. Dispo: tbd POST ADMISSION PHYSICIAN EVALUATION: Medical and functional status: Description of medical status, medical assessment: As above. Rehabilitation diagnosis and current and prior cold morbid medical conditions as above. Risk of complications and plans to mitigate them as above. Description of functional status current status is as above. Prior status as above. Status compared to preadmission: There are no clinically significant differences between the patient's current status and the information described on the preadmission screening document. Treatment plan anticipated: Treatment plan is as described above. Required disciplines including physical therapy, occupational therapy, others as noted above Intensity of services: 3 hours a day, 6 days a week. Special considerations: There are no specific special or safety considerations that would likely preclude immediate implementation of an intensive rehabilitation program or subsequently influence the plan of care ATTESTATION: Considering all the information above, it is my best judgment that this patient requires intensive rehabilitation therapy as described above and an inpatient hospital environment due to the complexity of nursing, medical, and rehabilitation needs required by the patient. Furthermore, this patient can reasonably be expected to participate in an benefit from an inpatient rehabilitation stay with an interdisciplinary team approach to the delivery of rehabilitation care under the direction and supervision of rehabilitation physician PROGNOSIS: good ESTIMATED LENGTH OF [id number] days. PROJECTED DISCHARGE DESTINATION: Home with family support and any durable medical equipment required to increase functional safety and mobility TIME SPENT COUNSELING AND COORDINATING INITIAL CARE: Greater than 70 minutes. Vital Signs Vital Sign - Last 24 Hours 10/01/18 12:05 Temp 98.0 Pulse 96 Resp 18 B/P (MAP) 156/69 (98) Pulse Ox 90 Home Medications Scheduled Cannabidiol (Cbd Oil) Btl, 1 DROP PO BID, (Reported) USES ONE DROPPERFUL DIRECTED Cholecalciferol (Vitamin D3) (Vitamin D3) 1,000 Unit Tab.chew, 1,000 UNIT PO DAILY, (Reported) Diphenhydramine HCl (Benadryl) 25 Mg Capsule, 25 MG PO QPM Lisinopril (Lisinopril) 5 Mg Tab, 5 MG PO DAILY, (Reported) Rosuvastatin Calcium (Crestor) 5 Mg Tab, 5 MG PO DAILY, (Reported) Sertraline Hcl (Zoloft) 100 Mg Tab, 100 MG PO DAILY, (Reported) Vits A,C,E/Lutein/Minerals (Ocuvite with Lutein Tablet) 1 Each Tablet, 1 TAB PO DAILY, (Reported) Scheduled PRN Albuterol Sulf (Albuterol Sulfate) 2.5 Mg/3 Ml Nebu, 1 INH INH Q4-6H PRN for SHORTNESS OF BREATH, (Reported) Oxycodone HCl/Acetaminophen (Percocet 5-325 mg Tablet) 1 Each Tablet, 1 TAB PO Q4H PRN for PAIN Allergies Coded Allergies: codeine (Verified Allergy, Intermediate, RASH, CONFUSION, 09/30/18) A-FIB/CHADSVASC A-FIB History Current/History of A-Fib/PAF?: No TOMI MILLER MD Oct 01, 2018 15:33
[2018-10-01] MEDS: guaiFENesin SYRUP 200 MG/10 ML UDC PO SCH ×3 (16:00→21:31)
[2018-10-01] MEDS: LANSOPRAZOLE SUSPENSION 30 MG/10 ML ORAL SYRINGE (FIRST-LANSOPRAZOLE) PO SCH (16:48)
[2018-10-01] MEDS: IPRATROPIUM 0.5MG/ALBUTEROL 2.5MG INH SOL UD 3ML (DUONEB)(J7620) NEB SCH ×2 (17:08→20:00)
--- NOTE | 2018-10-01 18:21 | REP ---
HISTORY: Pain and swelling. TECHNIQUE: Multiple ultrasonographic images of the deep venous structures of the bilateral thighs were obtained from the common femoral vein to the popliteal vein along with Doppler interrogation and color flow Doppler images. FINDINGS: There is no abnormal echogenic material seen within any of the visualized deep venous structures that would suggest acute thrombosis. Coaptation is unremarkable throughout. Doppler interrogation shows an expected response to respiratory variability and augmentation. The color flow images show what appears to be a normal vascular pattern throughout. IMPRESSION: There is no ultrasonographic evidence of deep venous thrombosis involving any of the visualized deep venous structures of the bilateral thighs, as described above. Electronically Signed by Michael Morgan DO 10/02/2018 10:32 A
--- NOTE | 2018-10-01 18:23 | REP ---
HISTORY: Pain and swelling. TECHNIQUE: Multiple ultrasonographic images of the deep venous structures of the right upper extremity were obtained to rule out deep venous thrombosis. FINDINGS: There is no abnormal echogenic material seen in any of the visualized deep venous structures of the right upper extremity. Coaptation where applicable is appropriate throughout. Augmentation shows an expected response throughout. IMPRESSION: Negative exam. Electronically Signed by Michael Morgan DO 10/02/2018 10:33 A
--- NOTE | 2018-10-01 19:28 | REP ---
CHEST, TWO VIEWS: Two views of the chest are performed. I have no prior study for comparison. There is blunting of the left costophrenic angle compatible with mild left pleural fluid or thickening. There is adjacent linear fibroatelectatic change. Right lung is clear. There is mild cardiomegaly with left ventricular prominence. The mediastinal silhouette is unremarkable. There are mild degenerative changes of the spine. IMPRESSION: Mild left pleural fluid or thickening with adjacent linear fibroatelectatic change. Electronically Signed by Gamal Morales MD 10/02/2018 09:57 A
--- NOTE | 2018-10-01 19:45 | REP ---
SOFT TISSUES NECK: Three AP and lateral views of the soft tissues of the neck were performed one day following anterior cervical discectomy and fusion. There is prevertebral soft tissue swelling noted at the level of the surgery. The adjacent airway is widely patent with no airway narrowing. Anterior metallic plate and screws are noted with disc spacers at C4-5 and C5-6. Diffuse facet arthropathy is noted. There is moderate disc space narrowing with subchondral sclerosis and spurring at C6-7 disc space. IMPRESSION: There is prevertebral soft tissue swelling one day post anterior cervical discectomy and fusion surgery at C4 through C6 levels. There is no narrowing of the airway. Electronically Signed by Gamal Morales MD 10/02/2018 10:01 A
[2018-10-01 21:30] VITALS: BP 142/61
[2018-10-01] MEDS: diphenhydrAMINE INJ 50MG/ML VIAL (J1200) IV PRN (21:31)
[2018-10-02 06:33] VITALS: BP 151/72
[2018-10-02 07:19] LABS: BASO # 0.1 10^3/uL (0.0-0.2); BASO % 0.6 % (0.0-1.0); EOS # 0.2 10^3/uL (0.0-0.50); EOS % 1.9 % (0.0-3.0); HEMOGLOBIN 10.8 g/dl (12.0-15.5); LYMPH # 0.7 10^3/uL (1.5-4.5); LYMPH % 6.3 % (24.0-44.0); MEAN CORPUSCULAR HGB CONC 32.7 g/dl (32.0-36.5); MEAN CORPUSCULAR VOLUME 91.7 fl (80.0-96.0); MONO # 1.2 10^3/uL (0.0-0.8); MONO % 10.1 % (0.0-5.0); NEUTROPHILS # 9.3 10^3/uL (1.8-7.7); NEUTROPHILS % 80.6 % (36.0-66.0); PLATELET COUNT, AUTOMATED 202 10^3/uL (150-450); WHITE BLOOD COUNT 11.6 10^3/uL (4.0-10.0)
[2018-10-02 07:43] LABS: ALBUMIN 2.7 GM/DL (3.2-5.2); BILIRUBIN,TOTAL 0.6 MG/DL (0.2-1.0); CALCIUM LEVEL 8.8 MG/DL (8.8-10.2); CREATININE FOR GFR 1.09 MG/DL (0.55-1.30); GLOMERULAR FILTRATION RATE 51.5 (>39); POTASSIUM SERUM 4.3 MEQ/L (3.5-5.1)
[2018-10-02] MEDS: IPRATROPIUM 0.5MG/ALBUTEROL 2.5MG INH SOL UD 3ML (DUONEB)(J7620) NEB SCH ×4 (07:53→20:00)
[2018-10-02] MEDS: LANSOPRAZOLE SUSPENSION 30 MG/10 ML ORAL SYRINGE (FIRST-LANSOPRAZOLE) PO SCH (08:26)
[2018-10-02] MEDS: guaiFENesin SYRUP 200 MG/10 ML UDC PO SCH ×3 (08:26→21:00)
[2018-10-02] MEDS: oxyCODONE 5MG TAB PO PRN ×2 (08:27→13:50)
[2018-10-02] MEDS: SERTRALINE 100 MG TAB PO SCH (08:27)
[2018-10-02] MEDS: LISINOPRIL 5 MG TAB PO SCH (08:27)
[2018-10-02] MEDS: METAMUCIL (PSYLLIUM) PACKET PO SCH (08:27)
[2018-10-02] MEDS: ACETAMINOPHEN TAB 650MG DOSE (2X325MG) PO PRN ×3 (08:27→23:15)
[2018-10-02] MEDS: ROSUVASTATIN 10 MG TAB (CRESTOR) PO SCH (08:28)
[2018-10-02] MEDS: ENOXAPARIN 30 MG/0.3 ML SYR (J1650) SC SCH (09:04)
[2018-10-02] MEDS ORDERED: VARIBAR PUDDING 40% w/v 230ML TUBE As Ordered ONE (11:13)
[2018-10-02] MEDS ORDERED: E-Z-PAQUE 96% w/w SUSP 176GM BTL As Ordered ONE (11:14)
[2018-10-02] MEDS ORDERED: VARIBAR NECTAR 40% w/v 240ML SUSP BTL As Ordered ONE (11:14)
[2018-10-02] MEDS ORDERED: BARIUM SULFATE 700 MG TABLET (E-Z-DISK) As Ordered ONE (11:28)
[2018-10-02] MEDS ORDERED: CEPACOL LOZENGE PO PRN (12:30)
[2018-10-02] MEDS ORDERED: methylPREDNISolone INJ 125 MG/2 ML VIAL (J2930) IV ONE (13:00)
--- NOTE | 2018-10-02 13:00 | IPNPDOC ---
Text Note Date of Service The patient was seen on 10/02/18. NOTE Sujjective: Seen post return from barium swallow exam. denies chest pain, denies SOB, denies cough, chills. Objective: GENERAL: NAD SKIN : Warm, dry anterior cervical surgical incision without erythema, induration, drainage HEENT: cervical collar, Atraumatic, normocephalic, PERRL, moist mucous membrane CARDIOVASCULAR: irregular rate and rhythm, S1S2, no JVD, no edema, distal pulses + palpable RESP: CTAB, no accessory muscle use noted ABDOMEN: BS+ non distended non tender MS: no joint deformities NEURO: Alert and oriented x 3, CN2-12 grossly intact PSYCH: no anxiety or agitation, appropriate mood and affect A/P Cervical stenosis with radiculopathy -S/P anterior corpectomy decompression and fusion surgery 09/30/18 -rehabilitation per primary team Dysphagia -failed barium swallow today -had no issues with swallow prior to surgery(possibly related to perioperative intubation) -NPO for now-aspiration precautions -NG tube placement -repeat swallow evel in 72 hours Right Hip Fracture -non displaced -evaluated by ortho with recommendations for conservative management -pain mgt as needed with PT/OT rehabilitation -fall precautions Hypertension -lisinopril 5mg daily -monitoring per unit protocol DVT prophylaxis -lovenox daily/TEDs VS,Fishbone, I+O VS, Fishbone, I+O Laboratory Tests 10/02/18 07:03 Red Blood Count 3.60 L, Mean Corpuscular Volume 91.7, Mean Corpuscular Hemoglobin 30.0, Mean Corpuscular Hemoglobin Concent 32.7, Red Cell Distribution Width 13.3, Neutrophils (%) (Auto) 80.6 H, Lymphocytes (%) (Auto) 6.3 L, Monocytes (%) (Auto) 10.1 H, Eosinophils (%) (Auto) 1.9, Basophils (%) (Auto) 0.6, Neutrophils # (Auto) 9.3 H, Lymphocytes # (Auto) 0.7 L, Monocytes # (Auto) 1.2 H, Eosinophils # (Auto) 0.2, Basophils # (Auto) 0.1, Calcium Level 8.8, Aspartate Amino Transf (AST/SGOT) 20, Alanine Aminotransferase (ALT/SGPT) 14, Alkaline Phosphatase 89, Total Bilirubin 0.6, Total Protein 6.0 L, Albumin 2.7 L Vital Signs Date Time Temp Pulse Resp B/P (MAP) Pulse Ox O2 Delivery O2 Flow Rate FiO2 10/02/18 08:57 16 10/02/18 08:27 161/87 10/02/18 06:33 98.4 98 94 I&O- Last 24 Hours up to 6 AM 10/02/18 05:59 Intake Total 240 ml Output Total 168 ml Balance 72 ml WAYNE CHAPMAN RN REHAB Oct 02, 2018 13:00
[2018-10-02] MEDS: NS 1,000 ML IV SCH (13:50)
[2018-10-02 14:00] VITALS: BP 150/90
[2018-10-02 20:00] VITALS: BP 141/90
[2018-10-02] MEDS: diphenhydrAMINE INJ 50MG/ML VIAL (J1200) IV PRN (23:15)
[2018-10-03 05:47] VITALS: BP 153/70
[2018-10-03 07:02] LABS: HEMATOCRIT 31.9 % (36.0-47.0); HEMOGLOBIN 10.6 g/dl (12.0-15.5); MEAN CORPUSCULAR HEMOGLOBIN 29.3 pg (27.0-33.0); MEAN CORPUSCULAR HGB CONC 33.2 g/dl (32.0-36.5); MEAN CORPUSCULAR VOLUME 88.1 fl (80.0-96.0); PLATELET COUNT, AUTOMATED 248 10^3/uL (150-450); RED BLOOD COUNT 3.62 10^6/uL (4.00-5.40); WHITE BLOOD COUNT 10.2 10^3/uL (4.0-10.0)
[2018-10-03] MEDS: IPRATROPIUM 0.5MG/ALBUTEROL 2.5MG INH SOL UD 3ML (DUONEB)(J7620) NEB SCH ×4 (07:15→19:14)
[2018-10-03 07:30] LABS: ALBUMIN 2.6 GM/DL (3.2-5.2); BILIRUBIN,TOTAL 0.4 MG/DL (0.2-1.0); CALCIUM LEVEL 8.5 MG/DL (8.8-10.2); CREATININE FOR GFR 1.09 MG/DL (0.55-1.30); GLOMERULAR FILTRATION RATE 51.5 (>39); POTASSIUM SERUM 3.8 MEQ/L (3.5-5.1); TOTAL PROTEIN 6.3 GM/DL (6.4-8.2)
[2018-10-03] MEDS: NS 1,000 ML IV SCH (09:15)
[2018-10-03] MEDS: guaiFENesin SYRUP 200 MG/10 ML UDC PO SCH ×3 (09:15→21:00)
[2018-10-03] MEDS: LISINOPRIL 5 MG TAB PO SCH (09:15)
[2018-10-03] MEDS: ENOXAPARIN 30 MG/0.3 ML SYR (J1650) SC SCH (09:16)
[2018-10-03] MEDS: oxyCODONE 5MG TAB PO PRN (09:16)
[2018-10-03] MEDS: ROSUVASTATIN 10 MG TAB (CRESTOR) PO SCH (09:16)
[2018-10-03] MEDS: METAMUCIL (PSYLLIUM) PACKET PO SCH (09:16)
[2018-10-03] MEDS: SERTRALINE 100 MG TAB PO SCH (09:16)
[2018-10-03] MEDS: LANSOPRAZOLE SUSPENSION 30 MG/10 ML ORAL SYRINGE (FIRST-LANSOPRAZOLE) PO SCH (09:17)
--- NOTE | 2018-10-03 09:59 | REP ---
Examination Requested: Cookie Swallow Reason For Exam: Difficulty swallowing The procedure was performed by MATI Engle, under the direct supervision of Dr. Jane. The procedure was performed with Yoli Bauer from speech pathology present. 5 ml aliquots of thin, nectar, honey, puree and pill consistency barium was administered. Penetration and aspiration with a cough response was observed with thin, nectar, and honey thick consistency barium. The detailed report of this examination will be provided by speech pathology. 2.1 minutes of fluoroscopy time was utilized for this procedure. Reviewed by MATI Zaragoza 10/02/2018 02:04 P Edited and Electronically Signed by Frederic Jane MD 10/03/2018 10:16 A
--- NOTE | 2018-10-03 09:59 | REP ---
CHEST, PORTABLE: Single portable view of the chest is performed. Nasogastric tube is now visualized. The distal tip of the tube is just distal to the gastroesophageal junction. The lungs appear unchanged with mild blunting of the left costophrenic angle representing a mild amount of pleural thickening or fluid. No new infiltrate is seen bilaterally. The heart and mediastinum are unchanged. Electronically Signed by Gamal Morales MD 10/05/2018 11:39 A
--- NOTE | 2018-10-03 10:21 | ECGEPIP ---
[facility] Test Date: 2018-10-02 Pat Name: KEY GRANADOS Department: Room: [place] [address] Gender: Female Spinner Tender: JESICA : 1940 Requested By: WAYNE CRUZ Order Number: [id number] Reading MD: Lam Arora Measurements Intervals [place] Rate: 103 P: 54 RI: 160 QRS: -7 QRSD: 79 T: 27 QT: 330 QTc: 433 Interpretive Statements Sinus tachycardia Q wave in III of undetermined significance Nonspecific ST-T wave abnormalities No significant change when compared to prior tracing of 07/10/2016 Electronically Signed on 10-03-2018 10:20:52 EDT by Lam Arora
[2018-10-03 14:00] VITALS: BP 134/72
[2018-10-03 20:00] VITALS: BP 113/57
[2018-10-03] MEDS: ACETAMINOPHEN TAB 650MG DOSE (2X325MG) PO PRN (21:46)
[2018-10-03] MEDS: diphenhydrAMINE INJ 50MG/ML VIAL (J1200) IV PRN (21:47)
[2018-10-04 06:00] VITALS: BP 128/79
[2018-10-04 06:30] LABS: HEMATOCRIT 32.1 % (36.0-47.0); HEMOGLOBIN 10.6 g/dl (12.0-15.5); MEAN CORPUSCULAR HEMOGLOBIN 29.4 pg (27.0-33.0); MEAN CORPUSCULAR VOLUME 88.9 fl (80.0-96.0); PLATELET COUNT, AUTOMATED 231 10^3/uL (150-450); RED BLOOD COUNT 3.61 10^6/uL (4.00-5.40); WHITE BLOOD COUNT 8.8 10^3/uL (4.0-10.0)
--- NOTE | 2018-10-04 06:45 | IPN ---
DATE OF SERVICE: 10/03/2018 She is a 78-year-old female on the acute rehab unit following surgery. She had myelomalacia with nerve impingement. She had also experienced a right hip fracture of the greater trochanter, which did not require surgery at the time. She was having difficulty with swallowing. She failed her swallow exam. She does have a nasogastric (NG) tube in place. She is getting feedings. We will get a dietary consult regarding feedings. She is going to have speech therapy and another swallow evaluation. She is status post anterior corpectomy decompression and fusion surgery. Her right hip fracture was nondisplaced. She is having pain management and physical therapy (PT), occupational therapy (OT). History of hypertension, currently clinically stable. The patient is tolerating her tube feedings. She remains nothing by mouth. She is to have an updated swallow evaluation 72 hours. She remains afebrile. Vital signs are stable. White count is 10.2, hemoglobin and hematocrit 10.6 and 31.9, and platelets are 248. Sodium is 133, potassium 3.8, chloride 108, CO2 is 29, BUN 34, creatinine 1.09. Albumin is normal at 2.6. OBJECTIVE: Blood pressure 134/72, pulse 100, respirations 18, temperature 98, oxygen saturation 94% on room air. Patient is alert and oriented times three. Pupils equal and reactive to light. Extraocular movements (EOMS) intact. Pharynx, tongue, and gum is pink and moist. Tongue is midline. Neck is supple without lymphadenopathy. Chest: Clear to auscultation, without wheeze or retraction. Heart is regular. Abdomen: Benign. Bowel sounds positive. Genitourinary ()/rectal not done. Extremities: No cyanosis, clubbing, or edema. Peripheral pulse equal and palpable bilaterally. IMPRESSION: 1. Cervical stenosis with radiculopathy status post anterior corpectomy decompression and fusion surgery 09/30/2018. Rehabilitation per primary team. 2. Dysphagia. Failed barium swallow. She has a NG tube in place. She continues nothing by mouth. She is receiving tube feedings. We will get a nutrition and dietary consult. Repeat swallow evaluation in 72 hours. 3. Right hip fracture, nondisplaced. Continue PT, OT, and pain management. 4. Hypertension, clinically stable. 5. Deep venous thrombosis (DVT) prophylaxis with Lovenox and thromboembolism deterrents (TEDs).
[2018-10-04 06:46] LABS: ALBUMIN 2.5 GM/DL (3.2-5.2); BILIRUBIN,TOTAL 0.4 MG/DL (0.2-1.0); CALCIUM LEVEL 8.2 MG/DL (8.8-10.2); GLOMERULAR FILTRATION RATE 56.9 (>39); MAGNESIUM LEVEL 2.1 MG/DL (1.8-2.4); POTASSIUM SERUM 3.7 MEQ/L (3.5-5.1); TOTAL PROTEIN 6.1 GM/DL (6.4-8.2)
[2018-10-04] MEDS: IPRATROPIUM 0.5MG/ALBUTEROL 2.5MG INH SOL UD 3ML (DUONEB)(J7620) NEB SCH ×4 (07:26→19:36)
[2018-10-04] MEDS: NS 1,000 ML IV SCH (08:52)
[2018-10-04] MEDS: SERTRALINE 100 MG TAB PO SCH (08:54)
[2018-10-04] MEDS: guaiFENesin SYRUP 200 MG/10 ML UDC PO SCH ×3 (08:54→21:00)
[2018-10-04] MEDS: ROSUVASTATIN 10 MG TAB (CRESTOR) PO SCH (08:54)
[2018-10-04] MEDS: ENOXAPARIN 30 MG/0.3 ML SYR (J1650) SC SCH (08:54)
[2018-10-04] MEDS: LISINOPRIL 5 MG TAB PO SCH (08:55)
[2018-10-04] MEDS: oxyCODONE 5MG TAB PO PRN (08:55)
[2018-10-04] MEDS: LANSOPRAZOLE SUSPENSION 30 MG/10 ML ORAL SYRINGE (FIRST-LANSOPRAZOLE) PO SCH (08:55)
[2018-10-04] MEDS: METAMUCIL (PSYLLIUM) PACKET PO SCH (08:56)
[2018-10-04] MEDS: D5W/0.9% SODIUM CHLORIDE 1,000 ML IV SCH (12:29)
[2018-10-04] MEDS: LevoFLOXacin IV 750 MG in APPROPRIATE DILUENT 1 EA IV SCH (12:30)
[2018-10-04 14:00] VITALS: BP 138/86
[2018-10-04] MEDS: CHLORHEXIDINE GLUCONATE 0.12 % 15ML UDC (PERIDEX ORAL RINSE) SSP SCH ×2 (16:21→21:00)
[2018-10-04] MEDS: diphenhydrAMINE INJ 50MG/ML VIAL (J1200) IV PRN (21:03)
[2018-10-04 21:24] VITALS: BP 154/75
[2018-10-05 06:00] VITALS: BP 151/72
[2018-10-05] MEDS: D5W/0.9% SODIUM CHLORIDE 1,000 ML IV SCH (06:45)
[2018-10-05] MEDS: IPRATROPIUM 0.5MG/ALBUTEROL 2.5MG INH SOL UD 3ML (DUONEB)(J7620) NEB SCH ×4 (07:33→20:00)
[2018-10-05] MEDS: FLUTICASONE PROP 0.05% NASAL SPRAY 16 GM (FLONASE) NARES SCH ×2 (09:00→20:55)
[2018-10-05] MEDS: guaiFENesin SYRUP 200 MG/10 ML UDC PO SCH ×3 (09:00→20:52)
[2018-10-05] MEDS: CHLORHEXIDINE GLUCONATE 0.12 % 15ML UDC (PERIDEX ORAL RINSE) SSP SCH ×3 (09:00→20:52)
--- NOTE | 2018-10-05 11:08 | IPNPDOC ---
Text Note Date of Service The patient was seen on 10/05/18. NOTE Subjective: Waiting to complete repeat barium swallow. S/P placement and removal of NG tube for dysphagia and filled barium test. Denies discomfort at this time. Objective: GENERAL: NAD SKIN : Warm, dry anterior cervical surgical incision without erythema, i nduration, drainage HEENT: cervical collar, Atraumatic, normocephalic, PERRL, moist mucous membrane CARDIOVASCULAR: irregular rate and rhythm, S1S2, no JVD, no edema, distal pulses + palpable RESP: CTAB, no accessory muscle use noted ABDOMEN: BS+ non distended non tender MS: no joint deformities NEURO: Alert and oriented x 3, CN2-12 grossly intact PSYCH: no anxiety or agitation, appropriate mood and affect A/P Cervical stenosis with radiculopathy -S/P anterior corpectomy decompression and fusion surgery 09/30/18 -rehabilitation per primary team Dysphagia -Repeat barium swallow test today -S/P NG tube placement and removal over the weekend -Follow findings for further management -continue NS@50cc/hr Non displaced Right Hip Fracture -evaluated by ortho with recommendations for conservative management -pain mgt as needed with PT/OT rehabilitation -fall precautions Hypertension -controlled on lisinopril 5mg daily -continue monitoring per unit protocol DVT prophylaxis -lovenox daily/TEDs VS,Fishbone, I+O VS, Fishbone, I+O Vital Signs Date Time Temp Pulse Resp B/P (MAP) Pulse Ox O2 Delivery O2 Flow Rate FiO2 10/05/18 06:00 99.1 91 18 151/72 (98) 95 I&O- Last 24 Hours up to 6 AM 10/05/18 05:59 Intake Total 225 ml Balance 225 ml WAYNE CHAPMAN Oct 05, 2018 11:08
[2018-10-05 14:00] VITALS: BP 149/70
[2018-10-05] MEDS ORDERED: methylPREDNISolone 4 MG TAB PO SCH (15:00)
[2018-10-05] MEDS: ENOXAPARIN 30 MG/0.3 ML SYR (J1650) SC SCH (16:24)
[2018-10-05] MEDS: LANSOPRAZOLE SUSPENSION 30 MG/10 ML ORAL SYRINGE (FIRST-LANSOPRAZOLE) PO SCH (16:24)
[2018-10-05] MEDS: SERTRALINE 100 MG TAB PO SCH (16:25)
[2018-10-05] MEDS: METAMUCIL (PSYLLIUM) PACKET PO SCH (16:25)
[2018-10-05] MEDS: ROSUVASTATIN 10 MG TAB (CRESTOR) PO SCH (16:25)
[2018-10-05] MEDS: LISINOPRIL 5 MG TAB PO SCH (16:26)
[2018-10-05] MEDS: diphenhydrAMINE INJ 50MG/ML VIAL (J1200) IV PRN (20:52)
[2018-10-05] MEDS: methylPREDNISolone 4 MG TAB PO SCH ×2 (20:53→23:57)
[2018-10-05 22:00] VITALS: BP 148/80
[2018-10-06 06:00] VITALS: BP 134/82
[2018-10-06] MEDS: IPRATROPIUM 0.5MG/ALBUTEROL 2.5MG INH SOL UD 3ML (DUONEB)(J7620) NEB SCH ×4 (07:39→20:00)
[2018-10-06] MEDS: METAMUCIL (PSYLLIUM) PACKET PO SCH ×2 (09:00→09:23)
[2018-10-06] MEDS: LANSOPRAZOLE SUSPENSION 30 MG/10 ML ORAL SYRINGE (FIRST-LANSOPRAZOLE) PO SCH ×2 (09:22→22:05)
[2018-10-06] MEDS: guaiFENesin SYRUP 200 MG/10 ML UDC PO SCH ×3 (09:22→22:05)
[2018-10-06] MEDS: ENOXAPARIN 30 MG/0.3 ML SYR (J1650) SC SCH (09:22)
[2018-10-06] MEDS: CHLORHEXIDINE GLUCONATE 0.12 % 15ML UDC (PERIDEX ORAL RINSE) SSP SCH ×3 (09:22→22:06)
[2018-10-06] MEDS: SERTRALINE 100 MG TAB PO SCH (09:23)
[2018-10-06] MEDS: ROSUVASTATIN 10 MG TAB (CRESTOR) PO SCH (09:23)
[2018-10-06] MEDS: FLUTICASONE PROP 0.05% NASAL SPRAY 16 GM (FLONASE) NARES SCH ×2 (09:23→22:06)
[2018-10-06] MEDS: methylPREDNISolone 4 MG TAB PO SCH ×3 (09:23→16:58)
[2018-10-06] MEDS: LISINOPRIL 5 MG TAB PO SCH (09:23)
[2018-10-06 14:00] VITALS: BP 129/62
[2018-10-06] MEDS: LevoFLOXacin IV 750 MG in APPROPRIATE DILUENT 1 EA IV SCH (14:18)
[2018-10-06] MEDS ORDERED: SALIVA SUBSTITUTE(MOUTHKOTE) BTL MT PRN (15:30)
--- NOTE | 2018-10-06 15:35 | IPNPDOC ---
Text Note Date of Service The patient was seen on 10/06/18. NOTE Subjective: tolerating pureed diet for now. Anticipates transition to soft diet tomorrow Objective: GENERAL: NAD SKIN : Warm, dry anterior cervical surgical incision without erythema, induration, drainage HEENT: cervical collar, Atraumatic, normocephalic, PERRL, moist mucous membrane CARDIOVASCULAR: irregular rate and rhythm, S1S2, no JVD, no edema, distal pulses + palpable RESP: CTAB, no accessory muscle use noted ABDOMEN: BS+ non distended non tender MS: no joint deformities NEURO: Alert and oriented x 3, CN2-12 grossly intact PSYCH: no anxiety or agitation, appropriate mood and affect A/P Cervical stenosis with radiculopathy -S/P anterior corpectomy decompression and fusion surgery 09/30/18 -rehabilitation per primary team Dysphagia -now tolerating pureed diet -continued on steroid with taper for oropharyngeal swelling -advance as tolerated Non displaced Right Hip Fracture -evaluated by ortho with recommendations for conservative management -pain mgt as needed with PT/OT rehabilitation -fall precautions Hypertension -controlled on lisinopril 5mg daily -continue monitoring per unit protocol DVT prophylaxis -lovenox daily/TEDs VS,Fishbone, I+O VS, Fishbone, I+O Vital Signs Date Time Temp Pulse Resp B/P (MAP) Pulse Ox O2 Delivery O2 Flow Rate FiO2 10/06/18 06:00 97.6 87 18 134/82 (99) 95 I&O- Last 24 Hours up to 6 AM 10/06/18 06:00 Intake Total 440 ml Output Total 0 ml Balance 440 ml WAYNE CHAPMANP Oct 06, 2018 15:35
--- NOTE | 2018-10-06 15:37 | IPNPDOC ---
PM&R Progress Note DATE OF SERVICE: Oct 05, 2018 Colors Custodian Progress Note Subjective: Patient reporting she feels her swallow is better and is eager for the modified barium study. She reports continued bilateral arm weakness ad unsteadiness on her feet, but thinks she will be ready to go home soon. REVIEW OF SYSTEMS: The following is a completed review of systems and has been reviewed. Review of systems otherwise unremarkable. PAIN: Patient self reports mild neck pain EYES: No recent vision changes EARS, NOSE, & THROAT: +throat pain and dysphagia CARDIOVASCULAR: Denies chest pain or palpitations PULMONARY: +cough GASTROINTESTINAL: Denies constipation/diarrhea GENITOURINARY: +urinary stress incontinence (chronic) MUSCULOSKELETAL: generalized weakness NEUROLOGICAL:bilateral UE weakness and paresthesias SKIN: scattered ecchymosis PSYCHIATRIC: Unremarkable All other review of systems found to be negative. PHYSICAL EXAMINATION: VITAL SIGNS: Please see below. GENERAL: Pleasant and cooperative. No acute distress. HEENT: PERRL. Extraocular movements intact. Clear conjunctiva, +cervical collar CARDIOVASCULAR: Regular rate and rhythm. No murmurs, rubs, or gallops LUNGS: No wheezes. scattered rhonchi ABDOMEN: Soft, nontender, nondistended. Positive bowel sounds. Normal active bowel sounds NEUROLOGICAL: Alert and oriented times three. Cranial nerves II through XII grossly intact. Sensation decreased to light touch LUE, otherwise intact throughout other 3 limbs Brisk patellar reflexes, bilat clonus x 1 beat, +Valdez's bilat EXTREMITIES: 3+\5 strength bilateral upper extremities. 3+\5 strength right lower extremity. 3+/5 strength in left lower extremity. SKIN:, RUE swelling and scattered ecchymosis anterior neck incision c/d/i without induration ASSESSMENT:78-year-old F with past medical history of cervical stenosis and right hip fracture who presents status post cervical decompression. PLAN: 1. Rehab: PT- strengthen/stretch/improve ROM bilat LE, balance training OT- strengthen/stretch/improve ROM bilat UE, avoid lifitn anything greater than 2 pounds, avoid arm wheelchair propulsion PATTERNMAKER HAND: dysphagia evaluation- c/u puree and nectar 2. Neuro: cervical stenosis with falls and generalized weakness with paresthesias, s/p cervical ACDF, neck brace to be worn when out of bed -Avoid NSAIDs and ASA to assist in fusion -avoid delirogenic meds 3. CArdio: hld and HTN c/ statin and ROSALIA-I medicine consulted to assist in management 4. Resp: concern for atelectasis, CXR negative for infiltrate, Duonebs started in addition to Robitussin, encourage incentive spirometry -started on renally dosed Levaquin 10/04/18 for suspected aspirations in setting of cough and new onset post-op dysphagia 5. ENT: concern for prevertebral soft tissue, post-op Xray positive for prevertebral swelling, Cookie swallow positive for aspiration of all consistenci es 10/02/18, was NPO over the weekend with NG tube placement which was d/cd Friday when was clogged- s/p one time dose IV solumedrol, repeat cookie swallow today showed improvements, will start Medrol dosing and c/u to evaluate 6. GI ppx: protonix bid 7. DVT ppx: lovenox, doppler bilat LE and RUE negative 8. Pain: tylneol, oxycodone prn 9. Psych: Zoloft and benadryl for insomnia prn 10. Dispo: tbd Allergies Coded Allergies: codeine (Verified Allergy, Intermediate, RASH, CONFUSION, 09/30/18) Vital Signs Vital Signs Date Time Temp Pulse Resp B/P (MAP) Pulse Ox O2 Delivery O2 Flow Rate FiO2 10/06/18 06:00 97.6 87 18 134/82 (99) 95 Current Medications Current Medications Current Medications Medications (Trade) Dose Ordered Sig/Golden Route PRN Reason Start Time Stop Time Status Last Admin Dose Admin Acetaminophen (Tylenol Tab) 650 mg Q4HP PRN PO PAIN OR FEVER 10/01/18 13:00 10/03/18 21:46 Albuterol Sulfate (Proventil Neb) 2.5 mg Q4HP PRN NEB SOB/WHEEZING 10/01/18 13:00 Albuterol/ Ipratropium (Duoneb (Ipr 0.5mg/Alb 2.5mg)) 3 ml RQID NEB 10/01/18 15:00 10/06/18 14:31 Cetylpyridinium Chloride (Cepacol) 1 nazario Q1HP PRN PO COUGH 10/02/18 12:30 Chlorhexidine Gluconate (Peridex Oral Rinse) 15 ml TID SSP 10/04/18 16:00 10/06/18 09:22 Dextrose/Sodium Chloride 1,000 ml @ 50 mls/hr Q20H IV 10/04/18 10:45 10/05/18 15:18 DC 10/05/18 06:45 Diphenhydramine HCl (Benadryl) 25 mg QHSP PRN IV SLEEP 10/01/18 13:00 10/05/18 20:52 Enoxaparin Sodium (Lovenox) 30 mg DAILY SC 10/02/18 09:00 10/06/18 09:22 Fluticasone Propionate (Flonase 0.05% Nasal [place]) 1 spray BID NARES 10/05/18 09:00 10/06/18 09:23 Guaifenesin (Robitussin) 5 ml TID PO 10/01/18 16:00 10/06/18 09:22 Lansoprazole (First-Lansoprazole Oral Suspension) 15 mg DAILY PO 10/01/18 09:00 10/06/18 12:58 DC 10/06/18 09:22 Lansoprazole (First-Lansoprazole Oral Suspension) 30 mg BID PO 10/06/18 21:00 Levofloxacin 750 mg/IV Miscellaneous Supplies 150 ml @ 100 mls/hr Q48H IV 10/04/18 13:00 10/06/18 14:18 Lisinopril (Prinivil) 5 mg DAILY PO 10/02/18 09:00 10/06/18 09:23 Methylprednisolone (Medrol) 4 mg DAILY@0900,1300,1700 PO 10/06/18 09:00 10/06/18 17:01 10/06/18 14:18 Methylprednisolone (Medrol) 4 mg Taper QID PO 10/07/18 09:00 10/11/18 08:59 Methylprednisolone (Medrol) 8 mg 0000,1500,1800 PO 10/05/18 15:00 10/05/18 18:02 DC 10/05/18 16:25 Methylprednisolone (Medrol) 8 mg 1600,2000,2359 PO 10/05/18 20:00 10/06/18 00:00 DC 10/05/18 23:57 Methylprednisolone (Medrol) 8 mg QHS PO 10/06/18 21:00 10/06/18 21:01 Oxycodone HCl (Roxicodone, Oxyir) 5 mg Q4HP PRN PO PAIN 10/01/18 13:00 10/04/18 08:55 Psyllium Hydrophilic Mucilloid (Metamucil) 1 pkt DAILY PO 10/02/18 09:00 10/05/18 16:25 Rosuvastatin Calcium (Crestor) 5 mg DAILY PO 10/02/18 09:00 10/06/18 09:23 Sertraline HCl (Zoloft) 100 mg DAILY PO 10/02/18 09:00 10/06/18 09:23 Sodium Chloride 1,000 ml @ 50 mls/hr Q20H IV 10/02/18 12:41 10/04/18 10:30 DC 10/04/18 08:52 TOMI MILLER MD Oct 06, 2018 15:37
[2018-10-06] MEDS ORDERED: diphenhydrAMINE 25 MG CAP PO PRN (15:45)
--- NOTE | 2018-10-06 16:32 | IPNPDOC ---
PM&R Progress Note DATE OF SERVICE: Oct 06, 2018 Kindergarten Assistant Progress Note Subjective: Patient reporting her cough is better and she feels more steady on her feet and is certain her son can assist her with walking when she goes home as he is there all day. REVIEW OF SYSTEMS: The following is a completed review of systems and has been reviewed. Review of systems otherwise unremarkable. PAIN: Patient self reports mild neck pain EYES: No recent vision changes EARS, NOSE, & THROAT: +throat pain and dysphagia CARDIOVASCULAR: Denies chest pain or palpitations PULMONARY: +cough GASTROINTESTINAL: Denies constipation/diarrhea GENITOURINARY: +urinary stress incontinence (chronic) MUSCULOSKELETAL: generalized weakness NEUROLOGICAL:bilateral UE weakness and paresthesias SKIN: scattered ecchymosis PSYCHIATRIC: Unremarkable All other review of systems found to be negative. PHYSICAL EXAMINATION: VITAL SIGNS: Please see below. GENERAL: Pleasant and cooperative. No acute distress. HEENT: PERRL. Extraocular movements intact. Clear conjunctiva, +cervical collar CARDIOVASCULAR: Regular rate and rhythm. No murmurs, rubs, or gallops LUNGS: No wheezes. scattered rhonchi ABDOMEN: Soft, nontender, nondistended. Positive bowel sounds. Normal active bowel sounds NEUROLOGICAL: Alert and oriented times three. Cranial nerves II through XII grossly intact. Sensation decreased to light touch LUE, otherwise intact throughout other 3 limbs Brisk patellar reflexes, bilat clonus x 1 beat, +Valdez's bilat EXTREMITIES: 3+\5 strength bilateral upper extremities. 3+\5 strength right lower extremity. 3+/5 strength in left lower extremity. SKIN:, RUE swelling and scattered ecchymosis anterior neck incision c/d/i without induration ASSESSMENT:78-year-old F with past medical history of cervical stenosis and right hip fracture who presents status post cervical decompression. PLAN: 1. Rehab: PT- strengthen/stretch/improve ROM bilat LE, balance training OT- strengthen/stretch/improve ROM bilat UE, avoid lifitn anything greater than 2 pounds, avoid arm wheelchair propulsion BUTTON SPINDLER: dysphagia evaluation- c/u puree and nectar 2. Neuro: cervical stenosis with falls and generalized weakness with paresthesias, s/p cervical ACDF, neck brace to be worn when out of bed -Avoid NSAIDs and ASA to assist in fusion -avoid delirogenic meds 3. CArdio: hld and HTN c/ statin and ROSALIA-I medicine consulted to assist in management 4. Resp: concern for atelectasis, CXR negative for infiltrate, Duonebs started in addition to Robitussin, encourage incentive spirometry -started on renally dosed Levaquin 10/04/18 for suspected aspirations in setting of cough and new onset post-op dysphagia, last dose 10/08/18 5. ENT: concern for prevertebral soft tissue, post-op Xray positive for prevertebral swelling, Cookie swallow positive for aspiration of all consistencies 10/02/18, was NPO over the weekend with NG tube placement which was d/cd Friday when was clogged- s/p one time dose IV solumedrol, repeat cookie swallow 10/05/18 showed improvements, c/u Medrol dosing and c/u to evaluate 6. GI ppx: protonix bid 7. DVT ppx: lovenox, doppler bilat LE and RUE negative 8. Pain: tylneol, oxycodone prn 9. Psych: Zoloft and benadryl for insomnia prn 10. Dispo: tbd Allergies Coded Allergies: codeine (Verified Allergy, Intermediate, RASH, CONFUSION, 09/30/18) Vital Signs Vital Signs Date Time Temp Pulse Resp B/P (MAP) Pulse Ox O2 Delivery O2 Flow Rate FiO2 10/06/18 14:00 97.8 94 18 129/62 (84) 96 Current Medications Current Medications Current Medications Medications (Trade) Dose Ordered Sig/Golden Route PRN Reason Start Time Stop Time Status Last Admin Dose Admin Acetaminophen (Tylenol Tab) 650 mg Q4HP PRN PO PAIN OR FEVER 10/01/18 13:00 10/03/18 21:46 Albuterol Sulfate (Proventil Neb) 2.5 mg Q4HP PRN NEB SOB/WHEEZING 10/01/18 13:00 Albuterol/ Ipratropium (Duoneb (Ipr 0.5mg/Alb 2.5mg)) 3 ml RQID NEB 10/01/18 15:00 10/06/18 14:31 Cetylpyridinium Chloride (Cepacol) 1 nazario Q1HP PRN PO COUGH 10/02/18 12:30 Chlorhexidine Gluconate (Peridex Oral Rinse) 15 ml TID SSP 10/04/18 16:00 10/06/18 16:06 Dextrose/Sodium Chloride 1,000 ml @ 50 mls/hr Q20H IV 10/04/18 10:45 10/05/18 15:18 DC 10/05/18 06:45 Diphenhydramine HCl (Benadryl) 25 mg QHS PRN PO INSOMNIA 10/06/18 15:45 Diphenhydramine HCl (Benadryl) 25 mg QHSP PRN IV SLEEP 10/01/18 13:00 10/06/18 15:40 DC 10/05/18 20:52 Enoxaparin Sodium (Lovenox) 30 mg DAILY SC 10/02/18 09:00 10/06/18 09:22 Fluticasone Propionate (Flonase 0.05% Nasal [place]) 1 spray BID NARES 10/05/18 09:00 10/06/18 09:23 Guaifenesin (Robitussin) 5 ml TID PO 10/01/18 16:00 10/06/18 16:06 Lansoprazole (First-Lansoprazole Oral Suspension) 15 mg DAILY PO 10/01/18 09:00 10/06/18 12:58 DC 10/06/18 09:22 Lansoprazole (First-Lansoprazole Oral Suspension) 30 mg BID PO 10/06/18 21:00 Levofloxacin 750 mg/IV Miscellaneous Supplies 150 ml @ 100 mls/hr Q48H IV 10/04/18 13:00 10/08/18 23:00 10/06/18 14:18 Lisinopril (Prinivil) 5 mg DAILY PO 10/02/18 09:00 10/06/18 09:23 Methylprednisolone (Medrol) 4 mg DAILY@0900,1300,1700 PO 10/06/18 09:00 10/06/18 17:01 10/06/18 14:18 Methylprednisolone (Medrol) 4 mg Taper QID PO 10/07/18 09:00 10/11/18 08:59 Methylprednisolone (Medrol) 8 mg 0000,1500,1800 PO 10/05/18 15:00 10/05/18 18:02 DC 10/05/18 16:25 Methylprednisolone (Medrol) 8 mg 1600,2000,2359 PO 10/05/18 20:00 10/06/18 00:00 DC 10/05/18 23:57 Methylprednisolone (Medrol) 8 mg QHS PO 10/06/18 21:00 10/06/18 21:01 Oxycodone HCl (Roxicodone, Oxyir) 5 mg Q4HP PRN PO PAIN 10/01/18 13:00 10/04/18 08:55 Psyllium Hydrophilic Mucilloid (Metamucil) 1 pkt DAILY PO 10/02/18 09:00 10/05/18 16:25 Rosuvastatin Calcium (Crestor) 5 mg DAILY PO 10/02/18 09:00 10/06/18 09:23 Saliva Substitute (Mouthkote) 1 sprays Q1HP PRN MT dry mouth 10/06/18 15:30 Sertraline HCl (Zoloft) 100 mg DAILY PO 10/02/18 09:00 10/06/18 09:23 Sodium Chloride 1,000 ml @ 50 mls/hr Q20H IV 10/02/18 12:41 10/04/18 10:30 DC 10/04/18 08:52 TOMI MILLER MD Oct 06, 2018 16:32
--- NOTE | 2018-10-06 17:20 | REP ---
Examination Requested: Cookie Swallow Reason For Exam: Reevaluate swallowing ability The procedure was performed by MATI Engle, under the direct supervision of Dr. Morgan. The procedure was performed with Yoli Bauer from speech pathology present. 5 ml aliquots of thin, puree, mixed fruit, nectar , honey and pill consistency barium was administered. Penetration was observed with both nectar thick and mixed fruit consistency barium. Penetration with aspiration was observed with thin consistency barium. The detailed report of this examination will be provided by speech pathology. 3.0 minutes of fluoroscopy time was utilized for this procedure. Reviewed by MATI Zaragoza 10/05/2018 04:53 P Electronically Signed by Michael Morgan DO 10/06/2018 05:12 P
[2018-10-06] MEDS ORDERED: methylPREDNISolone 4 MG TAB PO SCH (21:00)
[2018-10-06 22:00] VITALS: BP 149/66
[2018-10-07] MEDS: ACETAMINOPHEN TAB 650MG DOSE (2X325MG) PO PRN ×3 (02:39→21:31)
[2018-10-07 05:57] VITALS: BP 149/67
[2018-10-07 06:11] LABS: BASO % 0.2 % (0.0-1.0); EOS % 0.1 % (0.0-3.0); HEMATOCRIT 32.1 % (36.0-47.0); HEMOGLOBIN 10.4 g/dl (12.0-15.5); LYMPH # 0.8 10^3/uL (1.5-4.5); LYMPH % 8.5 % (24.0-44.0); MEAN CORPUSCULAR HEMOGLOBIN 29.6 pg (27.0-33.0); MEAN CORPUSCULAR HGB CONC 32.4 g/dl (32.0-36.5); MEAN CORPUSCULAR VOLUME 91.5 fl (80.0-96.0); MONO # 1.1 10^3/uL (0.0-0.8); MONO % 11.5 % (0.0-5.0); NEUTROPHILS # 7.7 10^3/uL (1.8-7.7); NEUTROPHILS % 79.2 % (36.0-66.0); PLATELET COUNT, AUTOMATED 275 10^3/uL (150-450); RED BLOOD COUNT 3.51 10^6/uL (4.00-5.40); WHITE BLOOD COUNT 9.7 10^3/uL (4.0-10.0)
[2018-10-07 07:28] LABS: CALCIUM LEVEL 8.7 MG/DL (8.8-10.2); CREATININE FOR GFR 1.24 MG/DL (0.55-1.30); GLOMERULAR FILTRATION RATE 44.4 (>39); POTASSIUM SERUM 3.9 MEQ/L (3.5-5.1)
[2018-10-07] MEDS: IPRATROPIUM 0.5MG/ALBUTEROL 2.5MG INH SOL UD 3ML (DUONEB)(J7620) NEB SCH ×4 (08:00→20:00)
[2018-10-07] MEDS: guaiFENesin SYRUP 200 MG/10 ML UDC PO SCH ×3 (08:40→21:30)
[2018-10-07] MEDS: CHLORHEXIDINE GLUCONATE 0.12 % 15ML UDC (PERIDEX ORAL RINSE) SSP SCH ×3 (08:40→16:51)
[2018-10-07] MEDS: LANSOPRAZOLE SUSPENSION 30 MG/10 ML ORAL SYRINGE (FIRST-LANSOPRAZOLE) PO SCH ×2 (08:41→21:32)
[2018-10-07] MEDS: SERTRALINE 100 MG TAB PO SCH (08:42)
[2018-10-07] MEDS: ROSUVASTATIN 10 MG TAB (CRESTOR) PO SCH (08:42)
[2018-10-07] MEDS: ENOXAPARIN 30 MG/0.3 ML SYR (J1650) SC SCH (08:43)
[2018-10-07] MEDS: methylPREDNISolone 4 MG TAB PO SCH ×4 (08:43→21:32)
[2018-10-07] MEDS: LISINOPRIL 5 MG TAB PO SCH (08:43)
[2018-10-07] MEDS: FLUTICASONE PROP 0.05% NASAL SPRAY 16 GM (FLONASE) NARES SCH ×2 (08:44→21:32)
[2018-10-07] MEDS: METAMUCIL (PSYLLIUM) PACKET PO SCH (08:44)
[2018-10-07] MEDS: traZODone 25MG PER 1/2 TABLET PO SCH (21:30)
[2018-10-07 22:00] VITALS: BP 121/60
[2018-10-08] MEDS: CHLORHEXIDINE GLUCONATE 0.12 % 15ML UDC (PERIDEX ORAL RINSE) SSP SCH ×3 (05:45→15:09)
[2018-10-08 06:00] VITALS: BP 142/72
[2018-10-08] MEDS: IPRATROPIUM 0.5MG/ALBUTEROL 2.5MG INH SOL UD 3ML (DUONEB)(J7620) NEB SCH ×4 (07:44→19:40)
[2018-10-08] MEDS: METAMUCIL (PSYLLIUM) PACKET PO SCH (09:00)
[2018-10-08] MEDS: guaiFENesin SYRUP 200 MG/10 ML UDC PO SCH ×3 (10:20→21:33)
[2018-10-08] MEDS: ENOXAPARIN 30 MG/0.3 ML SYR (J1650) SC SCH (10:21)
[2018-10-08] MEDS: LISINOPRIL 5 MG TAB PO SCH (10:21)
[2018-10-08] MEDS: SERTRALINE 100 MG TAB PO SCH (10:21)
[2018-10-08] MEDS: LANSOPRAZOLE SUSPENSION 30 MG/10 ML ORAL SYRINGE (FIRST-LANSOPRAZOLE) PO SCH ×2 (10:21→21:34)
[2018-10-08] MEDS: ROSUVASTATIN 10 MG TAB (CRESTOR) PO SCH (10:22)
[2018-10-08] MEDS: methylPREDNISolone 4 MG TAB PO SCH ×3 (10:22→21:34)
[2018-10-08] MEDS: FLUTICASONE PROP 0.05% NASAL SPRAY 16 GM (FLONASE) NARES SCH ×2 (10:23→21:34)
[2018-10-08] MEDS ORDERED: VARIBAR PUDDING 40% w/v 230ML TUBE As Ordered ONE (12:00)
[2018-10-08] MEDS ORDERED: E-Z-PAQUE 96% w/w SUSP 176GM BTL As Ordered ONE (12:01)
[2018-10-08] MEDS ORDERED: BARIUM SULFATE 700 MG TABLET (E-Z-DISK) As Ordered ONE (12:01)
[2018-10-08] MEDS ORDERED: VARIBAR NECTAR 40% w/v 240ML SUSP BTL As Ordered ONE (12:01)
--- NOTE | 2018-10-08 12:40 | IPNPDOC ---
PM&R Progress Note DATE OF SERVICE: Oct 07, 2018 Mixer Blender Progress Note Subjective: Patient delvis feels her swallowing is getting better and is eager for the swallowing test tomorrow. She feels ready to go home Friday with the help of her son. She would like to try a different sleep medication stating the benadryl is not working. REVIEW OF SYSTEMS: The following is a completed review of systems and has been reviewed. Review of systems otherwise unremarkable. PAIN: Patient self reports mild neck pain EYES: No recent vision changes EARS, NOSE, & THROAT: +throat pain and dysphagia CARDIOVASCULAR: Denies chest pain or palpitations PULMONARY: +cough GASTROINTESTINAL: Denies constipation/diarrhea GENITOURINARY: +urinary stress incontinence (chronic) MUSCULOSKELETAL: generalized weakness NEUROLOGICAL:bilateral UE weakness and paresthesias SKIN: scattered ecchymosis PSYCHIATRIC: Unremarkable All other review of systems found to be negative. PHYSICAL EXAMINATION: VITAL SIGNS: Please see below. GENERAL: Pleasant and cooperative. No acute distress. HEENT: PERRL. Extraocular movements intact. Clear conjunctiva, +cervical collar CARDIOVASCULAR: Regular rate and rhythm. No murmurs, rubs, or gallops LUNGS: No wheezes.CTA no rhonchi ABDOMEN: Soft, nontender, nondistended. Positive bowel sounds. Normal active bowel sounds NEUROLOGICAL: Alert and oriented times three. Cranial nerves II through XII grossly intact. Sensation decreased to light touch LUE, otherwise intact throughout other 3 limbs Brisk patellar reflexes, bilat clonus x 1 beat, +Valdez's bilat EXTREMITIES: 3+\5 strength bilateral upper extremities. 3+\5 strength right lower extremity. 3+/5 strength in left lower extremity. SKIN:, RUE swelling and scattered ecchymosis anterior neck incision c/d/i without induration ASSESSMENT:78-year-old F with past medical history of cervical stenosis and right hip fracture who presents status post cervical decompression. PLAN: 1. 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 Neuro: cervical stenosis with falls and generalized weakness with paresthesias, s/p cervical ACDF, neck brace to be worn when out of bed -Avoid NSAIDs and ASA to assist in fusion -avoid delirogenic meds 3. CArdio: hld and HTN c/ statin and ROSALIA-I medicine consulted to assist in management 4. Resp: concern for atelectasis, CXR negative for infiltrate, Duonebs started in addition to Robitussin, encourage incentive spirometry -started on renally dosed Levaquin 10/04/18 for suspected aspirations in setting of cough and new onset post-op dysphagia, last dose 10/08/18 5. ENT: concern for prevertebral soft tissue, post-op Xray positive for prever tebral swelling, Cookie swallow positive for aspiration of all consistencies 10/02/18, was NPO over the weekend with NG tube placement which was d/cd Friday when was clogged- s/p one time dose IV solumedrol, repeat cookie swallow 10/05/18 showed improvements, c/u Medrol dosing and c/u to evaluate, cookie swallow test scheduled for tomorrow 6. GI ppx: protonix bid 7. DVT ppx: lovenox, doppler bilat LE and RUE negative 8. Pain: tylneol, oxycodone prn 9. Psych: Zoloft and will try trazodone for insomnia 10. Dispo: 10-09-18 to home wit son to provide 24-7 care Allergies Coded Allergies: codeine (Verified Allergy, Intermediate, RASH, CONFUSION, 09/30/18) Vital Signs Vital Signs Date Time Temp Pulse Resp B/P (MAP) Pulse Ox O2 Delivery O2 Flow Rate FiO2 10/08/18 10:21 142/72 10/08/18 06:00 96.8 84 16 96 Current Medications Current Medications Current Medications Medications (Trade) Dose Ordered Sig/Golden Route PRN Reason Start Time Stop Time Status Last Admin Dose Admin Acetaminophen (Tylenol Tab) 650 mg Q4HP PRN PO PAIN OR FEVER 10/01/18 13:00 10/07/18 21:31 Albuterol Sulfate (Proventil Neb) 2.5 mg Q4HP PRN NEB SOB/WHEEZING 10/01/18 13:00 Albuterol/ Ipratropium (Duoneb (Ipr 0.5mg/Alb 2.5mg)) 3 ml RQID NEB 10/01/18 15:00 10/08/18 07:44 Cetylpyridinium Chloride (Cepacol) 1 nazario Q1HP PRN PO COUGH 10/02/18 12:30 Chlorhexidine Gluconate (Peridex Oral Rinse) 15 ml AC@0600,1130,1630 SSP 10/07/18 12:00 10/08/18 10:20 Chlorhexidine Gluconate (Peridex Oral Rinse) 15 ml TID SSP 10/04/18 16:00 10/07/18 11:53 DC 10/07/18 08:40 Dextrose/Sodium Chloride 1,000 ml @ 50 mls/hr Q20H IV 10/04/18 10:45 10/05/18 15:18 DC 10/05/18 06:45 Diphenhydramine HCl (Benadryl) 25 mg QHS PRN PO INSOMNIA 10/06/18 15:45 10/07/18 18:01 DC 10/06/18 22:05 Diphenhydramine HCl (Benadryl) 25 mg QHSP PRN IV SLEEP 10/01/18 13:00 10/06/18 15:40 DC 10/05/18 20:52 Enoxaparin Sodium (Lovenox) 30 mg DAILY SC 10/02/18 09:00 10/08/18 10:21 Fluticasone Propionate (Flonase 0.05% Nasal [place]) 1 spray BID NARES 10/05/18 09:00 10/08/18 10:23 Guaifenesin (Robitussin) 5 ml TID PO 10/01/18 16:00 10/08/18 10:20 Lansoprazole (First-Lansoprazole Oral Suspension) 15 mg DAILY PO 10/01/18 09:00 10/06/18 12:58 DC 10/06/18 09:22 Lansoprazole (First-Lansoprazole Oral Suspension) 30 mg BID PO 10/06/18 21:00 10/08/18 10:21 Levofloxacin (Levaquin) 750 mg Q48H PO 10/08/18 18:00 10/08/18 23:00 Levofloxacin 750 mg/IV Miscellaneous Supplies 150 ml @ 100 mls/hr Q48H IV 10/04/18 13:00 10/07/18 12:07 DC 10/06/18 14:18 Lisinopril (Prinivil) 5 mg DAILY PO 10/02/18 09:00 10/08/18 10:21 Methylprednisolone (Medrol) 4 mg DAILY@0900,1300,1700 PO 10/06/18 09:00 10/06/18 17:01 DC 10/06/18 16:58 Methylprednisolone (Medrol) 4 mg Taper TID PO 10/07/18 09:00 10/11/18 08:59 10/08/18 10:22 Methylprednisolone (Medrol) 8 mg 0000,1500,1800 PO 10/05/18 15:00 10/05/18 18:02 DC 10/05/18 16:25 Methylprednisolone (Medrol) 8 mg 1600,2000,2359 PO 10/05/18 20:00 10/06/18 00:00 DC 10/05/18 23:57 Methylprednisolone (Medrol) 8 mg QHS PO 10/06/18 21:00 10/06/18 21:01 DC 10/06/18 22:06 Oxycodone HCl (Roxicodone, Oxyir) 5 mg Q4HP PRN PO PAIN 10/01/18 13:00 10/04/18 08:55 Psyllium Hydrophilic Mucilloid (Metamucil) 1 pkt DAILY PO 10/02/18 09:00 10/05/18 16:25 Rosuvastatin Calcium (Crestor) 5 mg DAILY PO 10/02/18 09:00 10/08/18 10:22 Saliva Substitute (Mouthkote) 1 sprays Q1HP PRN MT dry mouth 10/06/18 15:30 Sertraline HCl (Zoloft) 100 mg DAILY PO 10/02/18 09:00 10/08/18 10:21 Sodium Chloride 1,000 ml @ 50 mls/hr Q20H IV 10/02/18 12:41 10/04/18 10:30 DC 10/04/18 08:52 Trazodone HCl (Desyrel) 25 mg QHS PO 10/07/18 21:00 10/07/18 21:30 TOMI MILLER MD Oct 08, 2018 12:40
--- NOTE | 2018-10-08 12:41 | IPNPDOC ---
PM&R Progress Note DATE OF SERVICE: Oct 08, 2018 Reclamation Furnace Operator Progress Note Subjective: Patient was unableto to tolerate thins on her modified barium swallow and understands she will be safer to go home if she continues to work on her swallowing. REVIEW OF SYSTEMS: The following is a completed review of systems and has been r eviewed. Review of systems otherwise unremarkable. PAIN: Patient self reports mild neck pain EYES: No recent vision changes EARS, NOSE, & THROAT: +throat pain and dysphagia CARDIOVASCULAR: Denies chest pain or palpitations PULMONARY: +cough GASTROINTESTINAL: Denies constipation/diarrhea GENITOURINARY: +urinary stress incontinence (chronic) MUSCULOSKELETAL: generalized weakness NEUROLOGICAL:bilateral UE weakness and paresthesias SKIN: scattered ecchymosis PSYCHIATRIC: Unremarkable All other review of systems found to be negative. PHYSICAL EXAMINATION: VITAL SIGNS: Please see below. GENERAL: Pleasant and cooperative. No acute distress. HEENT: PERRL. Extraocular movements intact. Clear conjunctiva, +cervical collar CARDIOVASCULAR: Regular rate and rhythm. No murmurs, rubs, or gallops LUNGS: No wheezes.CTA no rhonchi ABDOMEN: Soft, nontender, nondistended. Positive bowel sounds. Normal active bowel sounds NEUROLOGICAL: Alert and oriented times three. Cranial nerves II through XII grossly intact. Sensation decreased to light touch LUE, otherwise intact throughout other 3 limbs Brisk patellar reflexes, bilat clonus x 1 beat, +Valdez's bilat EXTREMITIES: 3+\5 strength bilateral upper extremities. 3+\5 strength right lower extremity. 3+/5 strength in left lower extremity. SKIN:, RUE swelling and scattered ecchymosis anterior neck incision c/d/i without induration ASSESSMENT:78-year-old F with past medical history of cervical stenosis and right hip fracture who presents status post cervical decompression. PLAN: 1. 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 Neuro: cervical stenosis with falls and generalized weakness with pares thesias, s/p cervical ACDF, neck brace to be worn when out of bed -Avoid NSAIDs and ASA to assist in fusion -avoid delirogenic meds 3. CArdio: hld and HTN c/ statin and ROSALIA-I medicine consulted to assist in management 4. Resp: concern for atelectasis, CXR negative for infiltrate, Duonebs started in addition to Robitussin, encourage incentive spirometry -started on renally dosed Levaquin 10/04/18 for suspected aspirations in setting of cough and new onset post-op dysphagia, last dose 10/08/18 5. ENT: concern for prevertebral soft tissue, post-op Xray positive for prevertebral swelling, Cookie swallow positive for aspiration of all con sistencies 10/02/18, was NPO over the weekend with NG tube placement which was d/cd Friday when was clogged- s/p one time dose IV solumedrol, repeat cookie swallow 10/05/18 showed improvements, c/u Medrol dosing and c/u to evaluate, cookie swallow today, improvement with solids 6. GI ppx: protonix bid 8. Ortho: right greater trochanter fracture stable- lidoderm patch 7. DVT ppx: lovenox, doppler bilat LE and RUE negative 8. Pain: tylneol, oxycodone prn 9. Psych: Zoloft c/u tazodone for insomnia 10. Dispo: 10-13-18 to home with son to provide 24-7 care Allergies Coded Allergies: codeine (Verified Allergy, Intermediate, RASH, CONFUSION, 09/30/18) Vital Signs Vital Signs Date Time Temp Pulse Resp B/P (MAP) Pulse Ox O2 Delivery O2 Flow Rate FiO2 10/08/18 10:21 142/72 10/08/18 06:00 96.8 84 16 96 Current Medications Current Medications Current Medications Medications (Trade) Dose Ordered Sig/Golden Route PRN Reason Start Time Stop Time Status Last Admin Dose Admin Acetaminophen (Tylenol Tab) 650 mg Q4HP PRN PO PAIN OR FEVER 10/01/18 13:00 10/07/18 21:31 Albuterol Sulfate (Proventil Neb) 2.5 mg Q4HP PRN NEB SOB/WHEEZING 10/01/18 13:00 Albuterol/ Ipratropium (Duoneb (Ipr 0.5mg/Alb 2.5mg)) 3 ml RQID NEB 10/01/18 15:00 10/08/18 07:44 Cetylpyridinium Chloride (Cepacol) 1 nazario Q1HP PRN PO COUGH 10/02/18 12:30 Chlorhexidine Gluconate (Peridex Oral Rinse) 15 ml AC@0600,1130,1630 SSP 10/07/18 12:00 10/08/18 10:20 Chlorhexidine Gluconate (Peridex Oral Rinse) 15 ml TID SSP 10/04/18 16:00 10/07/18 11:53 DC 10/07/18 08:40 Dextrose/Sodium Chloride 1,000 ml @ 50 mls/hr Q20H IV 10/04/18 10:45 10/05/18 15:18 DC 10/05/18 06:45 Diphenhydramine HCl (Benadryl) 25 mg QHS PRN PO INSOMNIA 10/06/18 15:45 10/07/18 18:01 DC 10/06/18 22:05 Diphenhydramine HCl (Benadryl) 25 mg QHSP PRN IV SLEEP 10/01/18 13:00 10/06/18 15:40 DC 10/05/18 20:52 Enoxaparin Sodium (Lovenox) 30 mg DAILY SC 10/02/18 09:00 10/08/18 10:21 Fluticasone Propionate (Flonase 0.05% Nasal [place]) 1 spray BID NARES 10/05/18 09:00 10/08/18 10:23 Guaifenesin (Robitussin) 5 ml TID PO 10/01/18 16:00 10/08/18 10:20 Lansoprazole (First-Lansoprazole Oral Suspension) 15 mg DAILY PO 10/01/18 09:00 10/06/18 12:58 DC 10/06/18 09:22 Lansoprazole (First-Lansoprazole Oral Suspension) 30 mg BID PO 10/06/18 21:00 10/08/18 10:21 Levofloxacin (Levaquin) 750 mg Q48H PO 10/08/18 18:00 10/08/18 23:00 Levofloxacin 750 mg/IV Miscellaneous Supplies 150 ml @ 100 mls/hr Q48H IV 10/04/18 13:00 10/07/18 12:07 DC 10/06/18 14:18 Lisinopril (Prinivil) 5 mg DAILY PO 10/02/18 09:00 10/08/18 10:21 Methylprednisolone (Medrol) 4 mg DAILY@0900,1300,1700 PO 10/06/18 09:00 10/06/18 17:01 DC 10/06/18 16:58 Methylprednisolone (Medrol) 4 mg Taper TID PO 10/07/18 09:00 10/11/18 08:59 10/08/18 10:22 Methylprednisolone (Medrol) 8 mg 0000,1500,1800 PO 10/05/18 15:00 10/05/18 18:02 DC 10/05/18 16:25 Methylprednisolone (Medrol) 8 mg 1600,2000,2359 PO 10/05/18 20:00 10/06/18 00:00 DC 10/05/18 23:57 Methylprednisolone (Medrol) 8 mg QHS PO 10/06/18 21:00 10/06/18 21:01 DC 10/06/18 22:06 Oxycodone HCl (Roxicodone, Oxyir) 5 mg Q4HP PRN PO PAIN 10/01/18 13:00 10/04/18 08:55 Psyllium Hydrophilic Mucilloid (Metamucil) 1 pkt DAILY PO 10/02/18 09:00 10/05/18 16:25 Rosuvastatin Calcium (Crestor) 5 mg DAILY PO 10/02/18 09:00 10/08/18 10:22 Saliva Substitute (Mouthkote) 1 sprays Q1HP PRN MT dry mouth 10/06/18 15:30 Sertraline HCl (Zoloft) 100 mg DAILY PO 10/02/18 09:00 10/08/18 10:21 Sodium Chloride 1,000 ml @ 50 mls/hr Q20H IV 10/02/18 12:41 10/04/18 10:30 DC 10/04/18 08:52 Trazodone HCl (Desyrel) 25 mg QHS PO 10/07/18 21:00 10/07/18 21:30 TOMI MILLER MD Oct 08, 2018 12:41
[2018-10-08 14:00] VITALS: BP 139/74
[2018-10-08] MEDS: ACETAMINOPHEN TAB 650MG DOSE (2X325MG) PO PRN ×2 (15:10→21:34)
--- NOTE | 2018-10-08 15:58 | REP ---
Examination Requested: Cookie Swallow Reason For Exam: Evaluate swallowing The procedure was performed by MATI Engle, under the direct supervision of Dr. Morgan. The procedure was performed with Nadia Araujo from speech pathology present. 5 ml aliquots of thin, pudding, mixed fruit, soft food, hard food and pill consistency barium was administered. Penetration with aspiration and a cough response was visualized with thin consistency barium. The detailed report of this examination will be provided by speech pathology. 3.6 minutes of fluoroscopy time was utilized for this procedure. Reviewed by MATI Zaragoza 10/08/2018 12:53 P Electronically Signed by Michael Morgan DO 10/08/2018 03:49 P
[2018-10-08] MEDS ORDERED: LevoFLOXacin 750 MG TABLET PO SCH (18:00)
[2018-10-08 20:00] VITALS: BP 124/58
[2018-10-08] MEDS: traZODone 25MG PER 1/2 TABLET PO SCH (21:33)
[2018-10-09 06:00] VITALS: BP 137/82
[2018-10-09] MEDS: CHLORHEXIDINE GLUCONATE 0.12 % 15ML UDC (PERIDEX ORAL RINSE) SSP SCH ×3 (06:19→16:40)
[2018-10-09] MEDS: IPRATROPIUM 0.5MG/ALBUTEROL 2.5MG INH SOL UD 3ML (DUONEB)(J7620) NEB SCH ×4 (08:00→19:59)
[2018-10-09] MEDS: METAMUCIL (PSYLLIUM) PACKET PO SCH (09:00)
[2018-10-09] MEDS: guaiFENesin SYRUP 200 MG/10 ML UDC PO SCH ×3 (09:30→21:22)
[2018-10-09] MEDS: FLUTICASONE PROP 0.05% NASAL SPRAY 16 GM (FLONASE) NARES SCH ×2 (09:31→21:30)
[2018-10-09] MEDS: ENOXAPARIN 30 MG/0.3 ML SYR (J1650) SC SCH (09:31)
[2018-10-09] MEDS: LISINOPRIL 5 MG TAB PO SCH (09:31)
[2018-10-09] MEDS: SERTRALINE 100 MG TAB PO SCH (09:31)
[2018-10-09] MEDS: ROSUVASTATIN 10 MG TAB (CRESTOR) PO SCH (09:31)
[2018-10-09] MEDS: methylPREDNISolone 4 MG TAB PO SCH ×2 (09:32→21:22)
[2018-10-09] MEDS: LANSOPRAZOLE SUSPENSION 30 MG/10 ML ORAL SYRINGE (FIRST-LANSOPRAZOLE) PO SCH ×2 (09:32→21:22)
[2018-10-09] MEDS: ACETAMINOPHEN TAB 650MG DOSE (2X325MG) PO PRN ×2 (11:25→21:22)
[2018-10-09 14:00] VITALS: BP 124/57
--- NOTE | 2018-10-09 17:59 | IPNPDOC ---
PM&R Progress Note DATE OF SERVICE: Oct 09, 2018 Lumber Tailer Progress Note Subjective: Patient seen in room stating she would like to work on crocheting. She enjoyed her meal and is feeling well overall. REVIEW OF SYSTEMS: The following is a completed review of systems and has been reviewed. Review of systems otherwise unremarkable. PAIN: Patient self reports mild neck pain EYES: No recent vision changes EARS, NOSE, & THROAT: +throat pain and dysphagia CARDIOVASCULAR: Denies chest pain or palpitations PULMONARY: +cough GASTROINTESTINAL: Denies constipation/diarrhea GENITOURINARY: +urinary stress incontinence (chronic) MUSCULOSKELETAL: generalized weakness NEUROLOGICAL:bilateral UE weakness and paresthesias SKIN: scattered ecchymosis PSYCHIATRIC: Unremarkable All other review of systems found to be negative. PHYSICAL EXAMINATION: VITAL SIGNS: Please see below. GENERAL: Pleasant and cooperative. No acute distress. HEENT: PERRL. Extraocular movements intact. Clear conjunctiva, +cervical collar CARDIOVASCULAR: Regular rate and rhythm. No murmurs, rubs, or gallops LUNGS: No wheezes.CTA no rhonchi ABDOMEN: Soft, nontender, nondistended. Positive bowel sounds. Normal active bowel sounds NEUROLOGICAL: Alert and oriented times three. Cranial nerves II through XII grossly intact. Sensation decreased to light touch LUE, otherwise intact throughout other 3 limbs Brisk patellar reflexes, bilat clonus x 1 beat, +Valdez's bilat EXTREMITIES: 3+\5 strength bilateral upper extremities. 3+\5 strength right lower extremity. 3+/5 strength in left lower extremity. SKIN:, RUE swelling and scattered ecchymosis anterior neck incision c/d/i without induration ASSESSMENT:78-year-old F with past medical history of cervical stenosis and right hip fracture who presents status post cervical decompression. PLAN: 1. 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 Neuro: cervical stenosis with falls and generalized weakness with paresthesias, s/p cervical ACDF, neck brace to be worn when out of bed -Avoid NSAIDs and ASA to assist in fusion -avoid delirogenic meds 3. CArdio: hld and HTN c/ statin and ROSALIA-I medicine consulted to assist in management 4. Resp: concern for atelectasis, CXR negative for infiltrate, Duonebs started in addition to Robitussin, encourage incentive spirometry -started on renally dosed Levaquin 10/04/18 for suspected aspirations in setting of cough and new onset post-op dysphagia, last dose 10/08/18 5. ENT: concern for prevertebral soft tissue, post-op Xray positive for prevertebral swelling, Cookie swallow positive for aspiration of all consistencies 10/02/18, was NPO over the weekend with NG tube placement which was d/cd Friday when was clogged- s/p one time dose IV solumedrol, repeat cookie swallow 10/05/18 showed improvements, c/u Medrol dosing and c/u to evaluate, cookie swallow 10/08/18, improvement with solids 6. GI ppx: protonix bid 8. Ortho: right greater trochanter fracture stable- lidoderm patch 7. DVT ppx: lovenox, doppler bilat LE and RUE negative 8. Pain: tylneol, oxycodone prn 9. Psych: Zoloft c/u tazodone for insomnia 10. Dispo: 10-13-18 to home with son to provide 24-7 care Allergies Coded Allergies: codeine (Verified Allergy, Intermediate, RASH, CONFUSION, 09/30/18) Vital Signs Vital Signs Date Time Temp Pulse Resp B/P (MAP) Pulse Ox O2 Delivery O2 Flow Rate FiO2 10/09/18 14:00 97.3 86 16 124/57 (79) 100 Current Medications Current Medications Current Medications Medications (Trade) Dose Ordered Sig/Golden Route PRN Reason Start Time Stop Time Status Last Admin Dose Admin Acetaminophen (Tylenol Tab) 650 mg Q4HP PRN PO PAIN OR FEVER 10/01/18 13:00 10/09/18 11:25 Albuterol Sulfate (Proventil Neb) 2.5 mg Q4HP PRN NEB SOB/WHEEZING 10/01/18 13:00 Albuterol/ Ipratropium (Duoneb (Ipr 0.5mg/Alb 2.5mg)) 3 ml RQID NEB 10/01/18 15:00 10/08/18 07:44 Cetylpyridinium Chloride (Cepacol) 1 nazario Q1HP PRN PO COUGH 10/02/18 12:30 Chlorhexidine Gluconate (Peridex Oral Rinse) 15 ml AC@0600,1130,1630 SSP 10/07/18 12:00 10/09/18 16:40 Chlorhexidine Gluconate (Peridex Oral Rinse) 15 ml TID SSP 10/04/18 16:00 10/07/18 11:53 DC 10/07/18 08:40 Dextrose/Sodium Chloride 1,000 ml @ 50 mls/hr Q20H IV 10/04/18 10:45 10/05/18 15:18 DC 10/05/18 06:45 Diphenhydramine HCl (Benadryl) 25 mg QHS PRN PO INSOMNIA 10/06/18 15:45 10/07/18 18:01 DC 10/06/18 22:05 Diphenhydramine HCl (Benadryl) 25 mg QHSP PRN IV SLEEP 10/01/18 13:00 10/06/18 15:40 DC 10/05/18 20:52 Enoxaparin Sodium (Lovenox) 30 mg DAILY SC 10/02/18 09:00 10/09/18 09:31 Fluticasone Propionate (Flonase 0.05% Nasal [place]) 1 spray BID NARES 10/05/18 09:00 10/09/18 09:31 Guaifenesin (Robitussin) 5 ml TID PO 10/01/18 16:00 10/09/18 16:39 Lansoprazole (First-Lansoprazole Oral Suspension) 15 mg DAILY PO 10/01/18 09:00 10/06/18 12:58 DC 10/06/18 09:22 Lansoprazole (First-Lansoprazole Oral Suspension) 30 mg BID PO 10/06/18 21:00 10/09/18 09:32 Levofloxacin (Levaquin) 750 mg Q48H PO 10/08/18 18:00 10/08/18 23:00 DC 10/08/18 17:53 Levofloxacin 750 mg/IV Miscellaneous Supplies 150 ml @ 100 mls/hr Q48H IV 10/04/18 13:00 10/07/18 12:07 DC 10/06/18 14:18 Lisinopril (Prinivil) 5 mg DAILY PO 10/02/18 09:00 10/09/18 09:31 Methylprednisolone (Medrol) 4 mg DAILY@0900,1300,1700 PO 10/06/18 09:00 10/06/18 17:01 DC 10/06/18 16:58 Methylprednisolone (Medrol) 4 mg Taper BID PO 10/07/18 09:00 10/11/18 08:59 10/09/18 09:32 Methylprednisolone (Medrol) 8 mg 0000,1500,1800 PO 10/05/18 15:00 10/05/18 18:02 DC 10/05/18 16:25 Methylprednisolone (Medrol) 8 mg 1600,2000,2359 PO 10/05/18 20:00 10/06/18 00:00 DC 10/05/18 23:57 Methylprednisolone (Medrol) 8 mg QHS PO 10/06/18 21:00 10/06/18 21:01 DC 10/06/18 22:06 Oxycodone HCl (Roxicodone, Oxyir) 5 mg Q4HP PRN PO PAIN 10/01/18 13:00 10/04/18 08:55 Psyllium Hydrophilic Mucilloid (Metamucil) 1 pkt DAILY PO 10/02/18 09:00 10/05/18 16:25 Rosuvastatin Calcium (Crestor) 5 mg DAILY PO 10/02/18 09:00 10/09/18 09:31 Saliva Substitute (Mouthkote) 1 sprays Q1HP PRN MT dry mouth 10/06/18 15:30 Sertraline HCl (Zoloft) 100 mg DAILY PO 10/02/18 09:00 10/09/18 09:31 Sodium Chloride 1,000 ml @ 50 mls/hr Q20H IV 10/02/18 12:41 10/04/18 10:30 DC 10/04/18 08:52 Trazodone HCl (Desyrel) 25 mg QHS PO 10/07/18 21:00 10/08/18 21:33 TOMI MILLER MD Oct 09, 2018 17:59
[2018-10-09] MEDS: LIDOCAINE 5% (LIDODERM) PATCH TD SCH (18:00)
[2018-10-09] MEDS: **NOTE PATIENT COMMENT** MISC XX SCH (21:00)
[2018-10-09 21:20] VITALS: BP 136/61
[2018-10-09] MEDS: traZODone 25MG PER 1/2 TABLET PO SCH (21:22)
[2018-10-10] MEDS: CHLORHEXIDINE GLUCONATE 0.12 % 15ML UDC (PERIDEX ORAL RINSE) SSP SCH ×3 (05:59→17:47)
[2018-10-10 06:00] VITALS: BP 137/67
[2018-10-10] MEDS: ACETAMINOPHEN TAB 650MG DOSE (2X325MG) PO PRN ×2 (06:01→20:51)
[2018-10-10 07:23] LABS: HEMATOCRIT 33.7 % (36.0-47.0); HEMOGLOBIN 10.9 g/dl (12.0-15.5); MEAN CORPUSCULAR HGB CONC 32.3 g/dl (32.0-36.5); MEAN CORPUSCULAR VOLUME 89.6 fl (80.0-96.0); PLATELET COUNT, AUTOMATED 358 10^3/uL (150-450); RED BLOOD COUNT 3.76 10^6/uL (4.00-5.40); WHITE BLOOD COUNT 10.3 10^3/uL (4.0-10.0)
[2018-10-10] MEDS: IPRATROPIUM 0.5MG/ALBUTEROL 2.5MG INH SOL UD 3ML (DUONEB)(J7620) NEB SCH ×4 (07:53→19:56)
[2018-10-10] MEDS: guaiFENesin SYRUP 200 MG/10 ML UDC PO SCH ×3 (09:56→20:50)
[2018-10-10] MEDS: LANSOPRAZOLE SUSPENSION 30 MG/10 ML ORAL SYRINGE (FIRST-LANSOPRAZOLE) PO SCH ×2 (09:57→20:50)
[2018-10-10] MEDS: LISINOPRIL 5 MG TAB PO SCH (09:59)
[2018-10-10] MEDS: SERTRALINE 100 MG TAB PO SCH (09:59)
[2018-10-10] MEDS: ROSUVASTATIN 10 MG TAB (CRESTOR) PO SCH (09:59)
[2018-10-10] MEDS: ENOXAPARIN 30 MG/0.3 ML SYR (J1650) SC SCH (10:00)
[2018-10-10] MEDS: methylPREDNISolone 4 MG TAB PO SCH (10:00)
[2018-10-10] MEDS: METAMUCIL (PSYLLIUM) PACKET PO SCH (10:00)
[2018-10-10] MEDS: LIDOCAINE 5% (LIDODERM) PATCH TD SCH (10:01)
[2018-10-10] MEDS: FLUTICASONE PROP 0.05% NASAL SPRAY 16 GM (FLONASE) NARES SCH ×2 (10:01→20:53)
[2018-10-10 14:00] VITALS: BP 133/64
[2018-10-10 20:16] VITALS: BP 133/66
[2018-10-10] MEDS: traZODone 25MG PER 1/2 TABLET PO SCH (20:50)
[2018-10-10] MEDS: **NOTE PATIENT COMMENT** MISC XX SCH (21:12)
[2018-10-11] MEDS: CHLORHEXIDINE GLUCONATE 0.12 % 15ML UDC (PERIDEX ORAL RINSE) SSP SCH ×3 (05:38→17:01)
[2018-10-11 06:14] VITALS: BP 137/63
[2018-10-11 06:47] LABS: BASO # 0.1 10^3/uL (0.0-0.2); BASO % 0.9 % (0.0-1.0); EOS # 0.2 10^3/uL (0.0-0.50); EOS % 2.3 % (0.0-3.0); HEMATOCRIT 35.9 % (36.0-47.0); HEMOGLOBIN 11.5 g/dl (12.0-15.5); LYMPH # 1.3 10^3/uL (1.5-4.5); LYMPH % 14.9 % (24.0-44.0); MEAN CORPUSCULAR HEMOGLOBIN 29.6 pg (27.0-33.0); MEAN CORPUSCULAR VOLUME 92.3 fl (80.0-96.0); MONO # 0.9 10^3/uL (0.0-0.8); MONO % 10.7 % (0.0-5.0); NEUTROPHILS # 6.1 10^3/uL (1.8-7.7); NEUTROPHILS % 70.3 % (36.0-66.0); PLATELET COUNT, AUTOMATED 335 10^3/uL (150-450); RED BLOOD COUNT 3.89 10^6/uL (4.00-5.40); WHITE BLOOD COUNT 8.6 10^3/uL (4.0-10.0)
[2018-10-11] MEDS: IPRATROPIUM 0.5MG/ALBUTEROL 2.5MG INH SOL UD 3ML (DUONEB)(J7620) NEB SCH ×3 (08:00→20:00)
[2018-10-11] MEDS: FLUTICASONE PROP 0.05% NASAL SPRAY 16 GM (FLONASE) NARES SCH ×2 (09:00→20:41)
[2018-10-11] MEDS: METAMUCIL (PSYLLIUM) PACKET PO SCH (09:00)
[2018-10-11] MEDS: guaiFENesin SYRUP 200 MG/10 ML UDC PO SCH ×3 (10:34→20:41)
[2018-10-11] MEDS: LANSOPRAZOLE SUSPENSION 30 MG/10 ML ORAL SYRINGE (FIRST-LANSOPRAZOLE) PO SCH ×2 (10:34→20:41)
[2018-10-11] MEDS: SERTRALINE 100 MG TAB PO SCH (10:35)
[2018-10-11] MEDS: ROSUVASTATIN 10 MG TAB (CRESTOR) PO SCH (10:35)
[2018-10-11] MEDS: LISINOPRIL 5 MG TAB PO SCH (10:36)
[2018-10-11] MEDS: ENOXAPARIN 30 MG/0.3 ML SYR (J1650) SC SCH (10:37)
[2018-10-11] MEDS: LIDOCAINE 5% (LIDODERM) PATCH TD SCH (10:38)
[2018-10-11 14:00] VITALS: BP 104/56
[2018-10-11] MEDS: traZODone 25MG PER 1/2 TABLET PO SCH (20:41)
[2018-10-11] MEDS: ACETAMINOPHEN TAB 650MG DOSE (2X325MG) PO PRN (20:41)
[2018-10-11] MEDS: **NOTE PATIENT COMMENT** MISC XX SCH (20:55)
[2018-10-11 22:04] VITALS: BP 133/63
[2018-10-12] MEDS: CHLORHEXIDINE GLUCONATE 0.12 % 15ML UDC (PERIDEX ORAL RINSE) SSP SCH ×3 (05:11→16:39)
[2018-10-12 06:04] VITALS: BP 138/65
[2018-10-12] MEDS: IPRATROPIUM 0.5MG/ALBUTEROL 2.5MG INH SOL UD 3ML (DUONEB)(J7620) NEB SCH ×4 (08:00→20:00)
[2018-10-12] MEDS: METAMUCIL (PSYLLIUM) PACKET PO SCH (09:00)
[2018-10-12] MEDS: LANSOPRAZOLE SUSPENSION 30 MG/10 ML ORAL SYRINGE (FIRST-LANSOPRAZOLE) PO SCH ×2 (09:25→21:23)
[2018-10-12] MEDS: guaiFENesin SYRUP 200 MG/10 ML UDC PO SCH ×3 (09:25→21:23)
[2018-10-12] MEDS: LIDOCAINE 5% (LIDODERM) PATCH TD SCH (09:25)
[2018-10-12] MEDS: LISINOPRIL 5 MG TAB PO SCH (09:26)
[2018-10-12] MEDS: ENOXAPARIN 30 MG/0.3 ML SYR (J1650) SC SCH (09:26)
[2018-10-12] MEDS: ROSUVASTATIN 10 MG TAB (CRESTOR) PO SCH (09:26)
[2018-10-12] MEDS: SERTRALINE 100 MG TAB PO SCH (09:26)
[2018-10-12] MEDS: FLUTICASONE PROP 0.05% NASAL SPRAY 16 GM (FLONASE) NARES SCH ×2 (09:27→21:24)
[2018-10-12] MEDS: ACETAMINOPHEN TAB 650MG DOSE (2X325MG) PO PRN ×2 (09:32→21:23)
[2018-10-12] MEDS ORDERED: VARIBAR NECTAR 40% w/v 240ML SUSP BTL As Ordered ONE (13:34)
[2018-10-12] MEDS ORDERED: VARIBAR PUDDING 40% w/v 230ML TUBE As Ordered ONE (13:34)
[2018-10-12] MEDS ORDERED: E-Z-PAQUE 96% w/w SUSP 176GM BTL As Ordered ONE (13:34)
[2018-10-12] MEDS ORDERED: BARIUM SULFATE 700 MG TABLET (E-Z-DISK) As Ordered ONE (13:57)
[2018-10-12 14:40] VITALS: BP 104/50
--- NOTE | 2018-10-12 17:07 | IPNPDOC ---
PM&R Progress Note DATE OF SERVICE: Oct 12, 2018 Adding Machine Operator Progress Note Subjective: Patient seen in her room happy that she was able to pass her swallowing eval and drink thins. She understands she is to remain on a level 3 diet and was educated by MECHANICAL ENGINEERING MANAGER on what this means. she agreed to outpatient speech therapy. REVIEW OF SYSTEMS: The following is a completed review of systems and has been reviewed. Review of systems otherwise unremarkable. PAIN: Patient self reports mild neck pain EYES: No recent vision changes EARS, NOSE, & THROAT:dysphagia (improving) CARDIOVASCULAR: Denies chest pain or palpitations PULMONARY: +cough GASTROINTESTINAL: Denies constipation/diarrhea GENITOURINARY: +urinary stress incontinence (chronic) MUSCULOSKELETAL: generalized weakness NEUROLOGICAL:bilateral UE weakness and paresthesias SKIN: scattered ecchymosis PSYCHIATRIC: Unremarkable All other review of systems found to be negative. PHYSICAL EXAMINATION: VITAL SIGNS: Please see below. GENERAL: Pleasant and cooperative. No acute distress. HEENT: PERRL. Extraocular movements intact. Clear conjunctiva, +cervical collar CARDIOVASCULAR: Regular rate and rhythm. No murmurs, rubs, or gallops LUNGS: No wheezes.CTA no rhonchi ABDOMEN: Soft, nontender, nondistended. Positive bowel sounds. Normal active bowel sounds NEUROLOGICAL: Alert and oriented times three. Cranial nerves II through XII grossly intact. Sensation decreased to light touch LUE, otherwise intact throughout other 3 limbs Brisk patellar reflexes, bilat clonus x 1 beat, +Valdez's bilat EXTREMITIES: 3+\5 strength bilateral upper extremities. 3+\5 strength right lower extremity. 3+/5 strength in left lower extremity. SKIN:, RUE swelling and scattered ecchymosis anterior neck incision c/d/i without induration ASSESSMENT:78-year-old F with past medical history of cervical stenosis and right hip fracture who presents status post cervical decompression. PLAN: 1. Rehab: PT- strengthen/stretch/improve ROM bilat LE, balance training, ambulating further with RW OT- strengthen/stretch/improve ROM bilat UE, avoid lifitn anything greater th an 2 pounds, avoid arm wheelchair propulsion MECHANICAL ENGINEERING MANAGER: dysphagia evaluation- MBS 10/08/18 upgraded to level 2 with nectar, MBS on 10/12/18 upgraded to level 3 and thins 2. Neuro: cervical stenosis with falls and generalized weakness with paresthesias, s/p cervical ACDF, neck brace to be worn when out of bed -Avoid NSAIDs and ASA to assist in fusion -avoid delirogenic meds 3. CArdio: hld and HTN c/ statin and ROSALIA-I medicine consulted to assist in management 4. Resp: concern for atelectasis, CXR negative for infiltrate, Duonebs started in addition to Robitussin, encourage incentive spirometry -started on renally dosed Levaquin 10/04/18 for suspected aspirations in setting of cough and new onset post-op dysphagia, last dose 10/08/18 5. ENT: concern for prevertebral soft tissue, post-op Xray positive for prevertebral swelling s/p Medrol taper with improvement in dysphagia noted on serial MBS's with MECHANICAL ENGINEERING MANAGER 6. GI ppx: protonix bid 8. Ortho: right greater trochanter fracture stable- lidoderm patch 7. DVT ppx: lovenox, doppler bilat LE and RUE negative 8. Pain: tylneol, oxycodone prn 9. Psych: Zoloft c/u tazodone for insomnia 10. Dispo: 10-13-18 to home with son to provide 24-7 care Allergies Coded Allergies: codeine (Verified Allergy, Intermediate, RASH, CONFUSION, 09/30/18) Vital Signs Vital Signs Date Time Temp Pulse Resp B/P (MAP) Pulse Ox O2 Delivery O2 Flow Rate FiO2 10/12/18 14:40 97.8 87 18 104/50 (68 94 Current Medications Current Medications Current Medications Medications (Trade) Dose Ordered Sig/Golden Route PRN Reason Start Time Stop Time Status Last Admin Dose Admin Acetaminophen (Tylenol Tab) 650 mg Q4HP PRN PO PAIN OR FEVER 10/01/18 13:00 10/12/18 09:32 Albuterol Sulfate (Proventil Neb) 2.5 mg Q4HP PRN NEB SOB/WHEEZING 10/01/18 13:00 Albuterol/ Ipratropium (Duoneb (Ipr 0.5mg/Alb 2.5mg)) 3 ml RQID NEB 10/01/18 15:00 10/09/18 19:59 Cetylpyridinium Chloride (Cepacol) 1 nazario Q1HP PRN PO COUGH 10/02/18 12:30 Chlorhexidine Gluconate (Peridex Oral Rinse) 15 ml AC@0600,1130,1630 SSP 10/07/18 12:00 10/12/18 16:39 Chlorhexidine Gluconate (Peridex Oral Rinse) 15 ml TID SSP 10/04/18 16:00 10/07/18 11:53 DC 10/07/18 08:40 Dextrose/Sodium Chloride 1,000 ml @ 50 mls/hr Q20H IV 10/04/18 10:45 10/05/18 15:18 DC 10/05/18 06:45 Diphenhydramine HCl (Benadryl) 25 mg QHS PRN PO INSOMNIA 10/06/18 15:45 10/07/18 18:01 DC 10/06/18 22:05 Diphenhydramine HCl (Benadryl) 25 mg QHSP PRN IV SLEEP 10/01/18 13:00 10/06/18 15:40 DC 10/05/18 20:52 Enoxaparin Sodium (Lovenox) 30 mg DAILY SC 10/02/18 09:00 10/12/18 09:26 Fluticasone Propionate (Flonase 0.05% Nasal Callahan) 1 spray BID NARES 10/05/18 09:00 10/12/18 09:27 Guaifenesin (Robitussin) 5 ml TID PO 10/01/18 16:00 10/12/18 16:38 Lansoprazole (First-Lansoprazole Oral Suspension) 15 mg DAILY PO 10/01/18 09:00 10/06/18 12:58 DC 10/06/18 09:22 Lansoprazole (First-Lansoprazole Oral Suspension) 30 mg BID PO 10/06/18 21:00 10/12/18 09:25 Levofloxacin (Levaquin) 750 mg Q48H PO 10/08/18 18:00 10/08/18 23:00 DC 10/08/18 17:53 Levofloxacin 750 mg/IV Miscellaneous Supplies 150 ml @ 100 mls/hr Q48H IV 10/04/18 13:00 10/07/18 12:07 DC 10/06/18 14:18 Lidocaine (Lidoderm Patch) 1 patch DAILY TD 10/09/18 09:00 10/12/18 09:25 Lisinopril (Prinivil) 5 mg DAILY PO 10/02/18 09:00 10/12/18 09:26 Methylprednisolone (Medrol) 4 mg DAILY@0900,1300,1700 PO 10/06/18 09:00 10/06/18 17:01 DC 10/06/18 16:58 Methylprednisolone (Medrol) 4 mg Taper DAILY PO 10/07/18 09:00 10/11/18 08:59 DC 10/10/18 10:00 Methylprednisolone (Medrol) 8 mg 0000,1500,1800 PO 10/05/18 15:00 10/05/18 18:02 DC 10/05/18 16:25 Methylprednisolone (Medrol) 8 mg 1600,2000,2359 PO 10/05/18 20:00 10/06/18 00:00 DC 10/05/18 23:57 Methylprednisolone (Medrol) 8 mg QHS PO 10/06/18 21:00 10/06/18 21:01 DC 10/06/18 22:06 Non-Formulary Medication ( See Comment Field Below ) REMOVE LIDODERM PATCH DAILY@21 XX 10/09/18 21:00 10/11/18 20:55 Oxycodone HCl (Roxicodone, Oxyir) 5 mg Q4HP PRN PO PAIN 10/01/18 13:00 10/12/18 15:51 DC 10/04/18 08:55 Psyllium Hydrophilic Mucilloid (Metamucil) 1 pkt DAILY PO 10/02/18 09:00 10/10/18 10:00 Rosuvastatin Calcium (Crestor) 5 mg DAILY PO 10/02/18 09:00 10/12/18 09:26 Saliva Substitute (Mouthkote) 1 sprays Q1HP PRN MT dry mouth 10/06/18 15:30 Sertraline HCl (Zoloft) 100 mg DAILY PO 10/02/18 09:00 10/12/18 09:26 Sodium Chloride 1,000 ml @ 50 mls/hr Q20H IV 10/02/18 12:41 10/04/18 10:30 DC 10/04/18 08:52 Trazodone HCl (Desyrel) 25 mg QHS PO 10/07/18 21:00 10/11/18 20:41 TOMI MILLER MD Oct 12, 2018 17:07
[2018-10-12 19:58] VITALS: BP 126/60
[2018-10-12] MEDS: traZODone 25MG PER 1/2 TABLET PO SCH (21:23)
[2018-10-12] MEDS: **NOTE PATIENT COMMENT** MISC XX SCH (21:26)
--- NOTE | 2018-10-12 21:30 | IPN ---
DATE: 10/12/2018 She is up sitting in her chair. Patient on acute rehab unit. She has myelomalacia with nerve impingement. Vital signs have been stable. She has been progressing in the consistency of her diet. She had another cookie swallow 10/08/2018 and speech therapy upgraded her to a level of 2. She is to have another cookie swallow today. Electrolytes are normal. White count 8.6, hemoglobin and hematocrit 11.5 and 35.9. She was feeling well, afebrile. OBJECTIVE: Blood pressure 138/65, pulse 73, respirations 18, temperature 97, oxygen saturation (O2 sat) 97% on room air. The patient is alert and oriented times three. Pupils equal and react to light. Extraocular movements intact. Pharynx: Tongue and gums pink and moist. Tongue is midline. Neck has no lymphadenopathy. Cervical collar on. Heart is irregular. Abdomen: Benign. Bowel sounds positive. Genital/Rectal: Not done. Extremities: No cyanosis, clubbing or edema. Peripheral pulses equal and palpable bilaterally. Skin is warm and dry. IMPRESSION/PLAN: Cervical stenosis with radiculopathy. Status post anterior corpectomy, decompression and fusion surgery 09/30/2018. Rehab continues per primary team. Dysphagia. Tolerating level 2. Having another cookie swallow today. No cough. Lungs are clear. Nondisplaced fractured right hip. Continues with conservative management, physical therapy (PT) and occupational therapy (OT). Hypertension, controlled. Deep vein thrombosis (DVT) prophylaxis. Lovenox and thromboembolism deterrents (TEDs).
[2018-10-13] MEDS: CHLORHEXIDINE GLUCONATE 0.12 % 15ML UDC (PERIDEX ORAL RINSE) SSP SCH ×2 (05:30→12:11)
[2018-10-13 05:46] VITALS: BP 140/80
[2018-10-13 06:28] LABS: HEMATOCRIT 33.1 % (36.0-47.0); HEMOGLOBIN 10.8 g/dl (12.0-15.5); MEAN CORPUSCULAR HEMOGLOBIN 29.4 pg (27.0-33.0); MEAN CORPUSCULAR HGB CONC 32.6 g/dl (32.0-36.5); MEAN CORPUSCULAR VOLUME 90.2 fl (80.0-96.0); PLATELET COUNT, AUTOMATED 361 10^3/uL (150-450); RED BLOOD COUNT 3.67 10^6/uL (4.00-5.40); WHITE BLOOD COUNT 7.9 10^3/uL (4.0-10.0)
[2018-10-13] MEDS: IPRATROPIUM 0.5MG/ALBUTEROL 2.5MG INH SOL UD 3ML (DUONEB)(J7620) NEB SCH ×2 (08:00→11:01)
[2018-10-13 08:48] VITALS: BP 140/80
[2018-10-13] MEDS: guaiFENesin SYRUP 200 MG/10 ML UDC PO SCH (08:48)
[2018-10-13] MEDS: LISINOPRIL 5 MG TAB PO SCH (08:48)
[2018-10-13] MEDS: SERTRALINE 100 MG TAB PO SCH (08:48)
[2018-10-13] MEDS: ACETAMINOPHEN TAB 650MG DOSE (2X325MG) PO PRN (08:49)
[2018-10-13] MEDS: ROSUVASTATIN 10 MG TAB (CRESTOR) PO SCH (08:49)
[2018-10-13] MEDS: LANSOPRAZOLE SUSPENSION 30 MG/10 ML ORAL SYRINGE (FIRST-LANSOPRAZOLE) PO SCH (08:49)
[2018-10-13] MEDS: FLUTICASONE PROP 0.05% NASAL SPRAY 16 GM (FLONASE) NARES SCH (08:49)
[2018-10-13] MEDS: LIDOCAINE 5% (LIDODERM) PATCH TD SCH (08:49)
[2018-10-13] MEDS: METAMUCIL (PSYLLIUM) PACKET PO SCH (08:50)
[2018-10-13] MEDS: ENOXAPARIN 30 MG/0.3 ML SYR (J1650) SC SCH (08:50)
[2018-10-13] MEDS ORDERED: CRES10TA PO (10:31)
[2018-10-13] MEDS ORDERED: SERT-138 PO (10:31)
[2018-10-13] MEDS ORDERED: LISI-542 PO (10:31)
--- NOTE | 2018-10-13 12:40 | IPN ---
DATE OF SERVICE: 10/13/2018 Melony is seen in acute rehabilitation unit (ARU), rounding for the hospitalists. She has myomalacia with a nerve impingement, status post anterior corpectomy, decompression, and fusion surgery on 09/30/2018. Had a recent right hip fracture. Had a cookie swallow yesterday. The results are not yet dictated. PHYSICAL EXAMINATION: Afebrile. Vital signs stable. General appearance: Alert, conversant, in no distress. Lungs clear. Heart: Regular rate and rhythm. Abdomen soft, nontender. No peripheral edema. Moves arms and legs with equal strength. LABORATORIES: Complete blood count (CBC) unremarkable. IMPRESSION: 1. Swallowing disorder. Waiting for dictation back on the swallowing study. 2. Hyperlipidemia. Continue low-dose Crestor 5 mg daily. 3. Hypertensive heart disease. Continue lisinopril 5 mg daily.
[2018-10-13 14:00] VITALS: BP 117/59
--- NOTE | 2018-10-13 19:53 | REP ---
Examination Requested: Cookie Swallow Reason For Exam: Difficulty swallowing The procedure was performed by MATI Engle, under the direct supervision of Dr. Alfonso. The procedure was performed with Yoli Bauer from speech pathology present. 5 ml aliquots of thin, nectar , mixed fruit, soft food, and hard food consistency barium was administered. No aspiration or penetration was visualized throughout the course of the exam. The detailed report of this examination will be provided by speech pathology. 2.5 minutes of fluoroscopy time was utilized for this procedure. Reviewed by MATI Zaragoza 10/12/2018 04:15 P Electronically Signed by Gamal Alfonso MD 10/13/2018 07:44 P
--- NOTE | 2018-10-15 16:23 | PMRDS ---
DATE OF ADMISSION: 10/01/2018 DATE OF DISCHARGE: 10/13/2018 CHIEF COMPLAINT/DISCHARGE DIAGNOSIS: Cervical stenosis status post decompression and fusion with dysphagia. HISTORY OF PRESENT ILLNESS: A 78-year-old female with a past medical history of hypertension, hyperlipidemia, depression, who fell while chasing her pet, hurt her back, in suffered a right greater trochanter hip fracture. Had been followed by neurology for cervical stenosis with upper extremity weakness and paresthesias with worsening falls and admitted to Emergency Department on 09/28/2018. She was evaluated by orthopedic surgery who had been following her as an outpatient for both her cervical stenosis and right hip fracture. 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 She underwent an anterior corpectomy decompression and fusion surgery on 09/30/2018 without postoperative complications. She was placed in a cervical collar and evaluated by therapy. Found to have impairment in mobility and activities of daily living (ADLs) below her prior level of function and deemed medically appropriate for discharge to acute rehabilitation unit (ARU) on 10/01/2018. Upon arrival, the patient reports she cannot swallow her back this morning due to pain and reports a cough. She states she has an inhaler at home and has not needed to use this for years. PAST MEDICAL HISTORY: As per history of present illness (HPI). HOSPITAL COURSE: The patient was admitted and enrolled in a comprehensive physical therapy (PT) (cut off). She received 24-hour nursing supervision, and weekly team meetings were held to discuss her progress. Upon arrival, the patient noted that she had dysphagia. She was started on a pureed diet and nectar-thin liquids. The following day she underwent a modified barium swallow and aspirated. Following this, she was made nothing by mouth. She was maintained on intravenous (IV) fluids, started on Levaquin for suspected aspiration and in the setting of cough for suspected pneumonia. Esophageal x-ray was also obtained, showing prevertebral soft tissue swelling. She received one-time dose of Solu-Medrol, however, had persistent dysphagia, and repeat modified barium swallow in 10/08/2018 showed aspiration on thins, and she was maintained on nectar. She was started on methylprednisolone for a 7-day taper and on repeat modified barium swallow on 10/12/2018 she was able to be upgraded to level 3 and thins. She required a Lidoderm patch for her right greater trochanter fracture, which she noted that she had pain on ambulation. She gradually got stronger, had improvement in dynamic balance, and was deemed medically and functionally stable to return home with her son, who would provide 24/7 are and was trained to assist her, on 10/13/2018. DISCHARGE MEDICATIONS: As per discharge instructions. FUNCTIONAL HISTORY ON DISCHARGE: The patient was modified independent for functional transfers, able to ambulate 100 feet modified independent, and able to propel her wheelchair 200 feet. In occupational therapy she was modified independent for functional transfers, bathing, dressing, grooming, toileting. Thank you for this referral.
== END 2018-10-13 14:25 | disposition home or self-care (01) | DRG 552 ==
LOC: M PM&R 12:09
PROVIDERS: ADMIT Physical Medicine & Rehabilitation; ATTEND Physical Medicine & Rehabilitation
DX: M47.22 Other spondylosis with radiculopathy, cervical region (principal); G95.89 Other specified diseases of spinal cord; R13.10 Dysphagia, unspecified; I10 Essential (primary) hypertension; E78.5 Hyperlipidemia, unspecified; M62.81 Muscle weakness (generalized); N39.3 Stress incontinence (female) (male); R26.81 Unsteadiness on feet; R20.0 Anesthesia of skin; R53.1 Weakness; M48.02 Spinal stenosis, cervical region; F32.9 Major depressive disorder, single episode, unspecified; R05 Cough; S72.114D Nondisplaced fracture of greater trochanter of right femur, subsequent encounter for closed fracture with routine healing; W18.09XD Striking against other object with subsequent fall, subsequent encounter; Y92.009 Unspecified place in unspecified non-institutional (private) residence as the place of occurrence of the external cause; Z98.41 Cataract extraction status, right eye; Z98.42 Cataract extraction status, left eye; Z79.899 Other long term (current) drug therapy; Z88.5 Allergy status to narcotic agent; Z98.1 Arthrodesis status

== ENCOUNTER 2018-10-23 10:59 | Outpatient (RCR) | payer MEDICARE ==
[~2018-10-23 10:59] MED LIST changes: +CRES10TA PO; +SERT-138 PO
== END 2018-10-24 ==
LOC: M PT 10:59
PROVIDERS: ATTEND Internal Medicine
DX: S72.114D Nondisplaced fracture of greater trochanter of right femur, subsequent encounter for closed fracture with routine healing (principal)

== ENCOUNTER 2018-11-17 11:44 | Outpatient (RCR) | payer MEDICARE | END 2018-11-23 | LOC: M PT 11:44 | PROVIDERS: ATTEND Internal Medicine | DX: Z47.89 Encounter for other orthopedic aftercare (principal); S72.122D Displaced fracture of lesser trochanter of left femur, subsequent encounter for closed fracture with routine healing; M54.16 Radiculopathy, lumbar region ==

== ENCOUNTER 2018-12-11 10:42 | Outpatient (RCR) | payer MEDICARE | END 2018-12-24 | LOC: M PT 10:42 | PROVIDERS: ATTEND Internal Medicine | DX: Z47.89 Encounter for other orthopedic aftercare (principal); S72.122D Displaced fracture of lesser trochanter of left femur, subsequent encounter for closed fracture with routine healing; M54.16 Radiculopathy, lumbar region; X58.XXXD Exposure to other specified factors, subsequent encounter; Y92.9 Unspecified place or not applicable; Y93.9 Activity, unspecified; Y99.9 Unspecified external cause status ==

== ENCOUNTER 2020-11-18 11:02 | Inpatient (IN) | payer MEDICARE ==
[~2020-11-18 11:02] MED LIST changes: -ASPI81TA85 PO; +ASPI81TA86 PO; -LISI-542 PO; +LISI-898 PO
[2020-11-18 12:45] VITALS: BP 134/73
[2020-11-18] MEDS ORDERED: MAALOX 30 ML SUSP *UDC PO PRN (13:50)
[2020-11-18] MEDS ORDERED: MOM 30ML SUSPENSION UDC PO PRN (13:50)
[2020-11-18 14:00] VITALS: BP 126/70
[2020-11-18] MEDS ORDERED: LISI-898 PO (14:06)
[2020-11-18] MEDS ORDERED: NAPR500T6 PO (14:06)
[2020-11-18] MEDS ORDERED: PRESCAP PO (14:06)
[2020-11-18] MEDS ORDERED: SERT50TA29 PO (14:06)
[2020-11-18] MEDS ORDERED: ROSU5TAB5 PO (14:06)
[2020-11-18] MEDS ORDERED: HOME MED LIST COMPLETE! XX SCH (14:10)
--- NOTE | 2020-11-18 14:15 | HPEPDOC ---
[facility] Medical History & Physical Date of Admission Nov 18, 2020 Date of Service: Nov 18, 2020 Primary Care Physician: Jr Aponte Collins Attending Physician: HASEEB BURROWS DO History and Physical CHIEF COMPLAINT: Mechanical fall with left hip fracture HISTORY OF PRESENT ILLNESS: Patient was letting her dog out this morning when she tripped on either her shoelaces over the step in front of her porch. She fell and sustained a fracture of the left hip. She was originally brought to [facility], and now transferred to [facility] such as she can be seen and evaluated by orthopedics him. The case has already been discussed with Dr. Slater & he has accepted the case. CODE STATUS: Full Code PAST MEDICAL HISTORY: Hypertension Heart disease Hyperlipidemia Depression Apparently she does have some sort of lung disease, but she has not seen her police stenographer in almost 2 years. She is not on any chronic inhalers, nor she on any respiratory medications, she does not recognize the diagnosis of COPD or emphysema when I ask her. She states that just every once in a while she will be put on a short course of prednisone by her PCP. Her most recent course of prednisone was approximately 3 months ago. PAST SURGICAL HISTORY: Tubal ligation 1973 Ovarian cyst torsion approximately 20 years ago Appendectomy Cataract surgery Cervical laminectomy 2019 Prior right hip fracture without need for surgical intervention SOCIAL HISTORY: She is a never smoker, but apparently has had significant exposure to secondhand smoke throughout her entire life. Perhaps has 1 alcoholic drink per month. Denies any illicit drug use. FAMILY HISTORY: Noncontributory REVIEW OF SYSTEMS: Constitutional: Patient denies fevers, chills, night sweats, recent weight gain/loss. HEENT: Patient denies blurred or double vision, transient visual disturbances, postnasal drip, epistaxis, sore throat, difficulty chewing or swallowing food. Cardiovascular: Patient denies chest discomfort/pain, palpitations, exertional dyspnea, orthopnea, edema of the extremities, claudication. Respiratory: Patient denies dyspnea, wheezing, cough, hemoptysis, sputum production. Gastrointestinal: Patient denies nausea, vomiting, diarrhea, constipation, abdominal pain, melena, hematochezia, hematemesis, jaundice. Musculoskeletal: Complaining of pain in her left hip, it is not very bad if she does not move. PHYSICAL EXAMINATION: General: Awake, alert, oriented x3. She is an excellent historian. She is in no acute distress. HEENT: Head normocephalic atraumatic, conjunctiva are pink, sclera are nonicteric, buccal mucosa is pink and moist with no lesions in the oropharynx. Hearing is grossly intact to conversation. Respiratory: Clear to auscultation bilaterally with no wheezes, rales, or rhonchi. Cardiovascular: Regular rate and rhythm, with no rubs, gallops, or murmur. Abdomen: Soft, nontender, nondistended, no hepatosplenomegaly appreciated. Bowel sounds present. Extremities: 2+ pulses in the radial and dorsalis pedis bilaterally. No evidence of clubbing or cyanosis. IMAGING: Patient did have hypertension at [place], CT scan of the head was performed just in case even though she did not have any head trauma. CT of the head apparently was negative per received medical records. Imaging reports from [place] reveals left intertrochanteric hip fracture ASSESSMENT: Left hip fracture -Management per orthopedic team -She states that she is able to a send a flight of stairs, but this may leave her somewhat winded. She does not carry heavy things at this area such as laundry. She is able to go shopping and walk on a flat surface for long distances. Likely has approximately 3-4 METS. Hypertension -May resume home dose of lisinopril after surgery when patient is hemodynamically stable Hyperlipidemia -May resume statin after surgery without reservation Depression -Resume home dose of sertraline after surgery Home Medications Scheduled Lisinopril (Lisinopril) 5 Mg Tablet, 5 MG PO DAILY Naproxen (Naproxen) 500 Mg Tablet.dr, 500 MG PO DAILY Rosuvastatin Calcium (Rosuvastatin Calcium) 5 Mg Tablet, 5 MG PO DAILY Sertraline HCl (Sertraline HCl) 50 Mg Tablet, 50 MG PO DAILY Vit A/Vit C/Vit E/Zinc/Copper (Preservision Areds Softgel) 1 Each Capsule, 1 CAP PO DAILY Allergies Coded Allergies: codeine (Verified Allergy, Intermediate, RASH, CONFUSION, 09/30/18) A-FIB/CHADSVASC A-FIB History Current/History of A-Fib/PAF?: No HASEEB BURROWS DO Nov 18, 2020 14:15
[2020-11-18] MEDS: ACETAMINOPHEN TAB 650MG DOSE (2X325MG) PO PRN ×2 (15:02→20:08)
[2020-11-18 18:47] VITALS: BP 126/69
[2020-11-18] MEDS: LR 1,000 ML IV SCH (18:58)
[2020-11-18 22:52] VITALS: BP 114/71
[2020-11-18] MEDS: RAMELTEON 8 MG TAB (ROZEREM) PO PRN (23:06)
--- NOTE | 2020-11-18 23:46 | REPVR ---
The PROCEDURE INFORMATION: Exam: XR Left Hip Exam date and time: 11/18/2020 9:26 PM Age: 80 years old Clinical indication: Hip pain; Left hip; Additional info: L hip fracture possible TECHNIQUE: Imaging protocol: XR Left hip. Views: 2 or 3 views hip with pelvis when performed. COMPARISON: No relevant prior studies available. FINDINGS: Bones/joints: Ossification with irregular lucency adjacent to the greater trochanter in the right femur. Proximal right femur is otherwise intact. Acute moderately displaced intratrochanteric fracture of the left femur. Fracture involves the superior margin of the lesser trochanter. Lesser trochanter is otherwise intact. There is no significant angulation. No dislocation. Soft tissues: Unremarkable. IMPRESSION: 1. Acute moderately displaced intratrochanteric fracture of the left femur. 2. Ossification with irregular lucency adjacent to the greater trochanter in the right femur. Acute or chronic chronic fracture of the greater trochanter of the right femur cannot be excluded. Electronically signed by: Andrew Taylor On 11/18/2020 23:45:23 PM
[2020-11-19] VITALS (8 sets, daily range): BP systolic 105–141; BP diastolic 60–83
[2020-11-19 05:46] LABS: HEMATOCRIT 33.9 % (36.0-47.0); MEAN CORPUSCULAR HEMOGLOBIN 29.2 pg (27.0-33.0); MEAN CORPUSCULAR HGB CONC 32.4 g/dl (32.0-36.5); MEAN CORPUSCULAR VOLUME 89.9 fl (80.0-96.0); PLATELET COUNT, AUTOMATED 198 10^3/uL (150-450); RED BLOOD COUNT 3.77 10^6/uL (4.00-5.40); WHITE BLOOD COUNT 8.1 10^3/uL (4.0-10.0)
[2020-11-19 06:18] LABS: CALCIUM LEVEL 8.2 MG/DL (8.8-10.2); CREATININE FOR GFR 1.4 MG/DL (0.55-1.30); GLOMERULAR FILTRATION RATE 38.4 (>32); POTASSIUM SERUM 4.3 MEQ/L (3.5-5.1)
[2020-11-19] MEDS ORDERED: ASPIRIN 81MG ENTERIC TABLET PO SCH (09:00)
[2020-11-19] MEDS: LR 1,000 ML IV SCH ×2 (09:06→21:42)
[2020-11-19] MEDS: ACETAMINOPHEN TAB 650MG DOSE (2X325MG) PO PRN ×3 (09:11→20:54)
[2020-11-19] MEDS ORDERED: MIDAZOLAM INJ 2MG/2ML VIAL (J2250 PER 1MG) As Ordered ONE (11:03)
[2020-11-19] MEDS ORDERED: LIDOCAINE 2% 100MG/5ML SDV (FOR ANES.) As Ordered ONE (11:03)
[2020-11-19] MEDS ORDERED: fentaNYL 100 MCG/2 ML INJECTION (J3010) As Ordered ONE (11:03)
[2020-11-19] MEDS ORDERED: propofoL 200 MG/20 ML VIAL As Ordered ONE ×2 (11:03→12:49)
[2020-11-19] MEDS ORDERED: KETAMINE HCL 200 MG/20 ML VIAL As Ordered ONE (11:17)
[2020-11-19] MEDS ORDERED: ceFAZolin 1GM VIAL (J0690 PER 500MG) As Ordered ONE (11:21)
[2020-11-19] MEDS ORDERED: ESMOLOL INJ 100MG/10ML VIAL As Ordered ONE (11:38)
[2020-11-19] MEDS ORDERED: PHENYLephrine 500MCG 5ML (100MCG/ML) SYRINGE As Ordered ONE ×4 (12:01→13:10)
[2020-11-19] MEDS ORDERED: ePHEDrine SULFATE 25 MG/5 ML(5MG/ML) SYRINGE As Ordered ONE (12:02)
--- NOTE | 2020-11-19 12:17 | IPNPDOC ---
Text Note Date of Service The patient was seen on 11/19/20. NOTE Hospitalist Progress Note Subjective: Patient is sitting in bed. She is in good spirits this morning. She is scheduled to go to the operating room later this morning. She was allowed to eat last night, but has been n.p.o. after midnight. Other than hip pain, she does not have any other complaints at this time, and the remainder of her review of systems is negative. Objective: General: Awake, alert, oriented 3. Not in any acute distress. HEENT: Head normocephalic, atraumatic, sclera are nonicteric. Hearing is grossly intact to conversation. Respiratory: Clear to auscultation bilaterally with no wheezes, rales, or rhonchi. Cardiovascular: Regular rate and rhythm, with no rubs, gallops, or murmur. Abdomen: Soft, nontender, nondistended, no hepatosplenomegaly appreciated. Bowel sounds present. Extremities: 2+ pulses in the radial and dorsalis pedis bilaterally. No evidence of clubbing or cyanosis. Assessment/Plan: Left hip fracture -Management per orthopedic team -She is medically optimized for surgery. Hypertension -May resume home dose of lisinopril after surgery when patient is hemodynamically stable Hyperlipidemia -May resume statin after surgery without reservation Depression -Resume home dose of sertraline after surgery VS,Carson, I+O VS, Carson, I+O Laboratory Tests 11/19/20 05:09 Vital Signs Date Time Temp Pulse Resp B/P (MAP) Pulse Ox O2 Delivery O2 Flow Rate FiO2 11/19/20 06:27 97.8 73 18 116/70 (85) 95 Room Air I&O- Last 24 Hours up to 6 AM 11/19/20 06:00 Intake Total 200 ml Output Total 550 ml Balance -350 ml HASEEB BURROWS DO Nov 19, 2020 12:17
[2020-11-19] MEDS ORDERED: TRANEXAMIC ACID 100 MG/ML 10ML VIAL As Ordered ONE (12:57)
--- NOTE | 2020-11-19 13:05 | ER ---
ER CONSULTATION DATE: 11/18/2020 TIME: 8 p.m. CONSULTING SERVICE: Orthopedic surgery. CONSULTING PHYSICIAN: Declan Slater MD HISTORY OF PRESENT ILLNESS: This is an 80-year-old female who sustained a left hip intertrochanteric fracture after a ground level fall when she tripped on her shoe strap at her home today. She sustained the aforementioned ground level and left hip intertrochanteric fracture. She was initially seen at [facility] but transferred to [facility] where she would be treated by an orthopedic surgeon. After her transfer I saw the patient and recommended surgical intervention to fix her left hip intertrochanteric fracture. MEDICAL HISTORY: Hypertension, heart disease, hyperlipidemia, depression. SURGICAL HISTORY: 1. Tubal ligation. 2. Ovarian cyst removal. 3. Appendectomy. 4. Cataract surgery. 5. Cervical laminectomy in 2019. 6. Right hip fracture, not requiring surgery. SOCIAL HISTORY: Social drinker, nonsmoker, non IV drug user. ALLERGIES: CODEINE. CURRENT MEDICATIONS: 1. Lisinopril. 2. Naproxen. 3. Rosuvastatin. 4. Calcium. 5. Sertraline. 6. HCL. 7. Vitamin A. 8. Vitamin C. 9. Vitamin E. 10. Zinc. 11. Copper. REVIEW OF SYSTEMS: 14 point review of systems was negative unless otherwise described in HPI above. PHYSICAL EXAMINATION: GENERAL: Alert and oriented to person, time and place. LEFT HIP: In obligatory flexion, abduction and external rotation indicative of left hip pain. The patient otherwise had no ecchymosis or edema about the left hip. She was neurovascularly intact to the left lower extremity. She had 2+ dorsalis pedis and posterior tibial arterial pulses. Brisk capillary refill to the digits of the left foot. 5/5 motor strength to the EHL, FHL, tibialis anterior and gastrocnemius, and peroneal musculature. Sensation intact to light touch to the deep and superficial peroneal, sural, saphenous and tibial nerve distributions. RADIOGRAPHS: Demonstrate left hip intertrochanteric minimally displaced fracture with extension distal to the lesser trochanter. IMPRESSION: 80-year-old female with minimally displaced closed left hip intertrochanteric fracture. PLAN: At this point in time, given the fact that she does have a left hip intertrochanteric fracture which makes her unable to ambulate, she is indicated for left hip cephalomedullary nail as soon as possible, likely in the morning on October,. The patient will be optimized for surgery this evening, made NPO at midnight for the aforementioned procedure. AISSATOU
--- NOTE | 2020-11-19 13:22 | REP ---
INDICATION: SURGERY - FEMUR FX. COMPARISON: None TECHNIQUE: 185 seconds of fluoroscopy time provided with 9 fluoroscopic spot views obtained using a C-arm device during left hip ORIF FINDINGS: The previously described left hip fracture has been openly reduced and internally fixed with a lag screw and femoral intramedullary shelly. The tip of the lag screw does not breach the joint space. The alignment appears near anatomical. IMPRESSION: Status post ORIF as described above. <Electronically signed by Michael Morgan > 11/19/20 [id number]
[2020-11-19] MEDS ORDERED: ONDANSETRON 4MG/2ML VIAL IV PRN ×2 (13:40→14:50)
[2020-11-19] MEDS ORDERED: LR 1,000 ML IV SCH ×2 (13:40→14:50)
[2020-11-19] MEDS ORDERED: fentaNYL 100 MCG/2 ML INJECTION (J3010) IV PRN ×2 (13:40→14:50)
--- NOTE | 2020-11-19 14:24 | RO ---
OPERATIVE NOTE DATE OF OPERATION: 11/19/2020 TIME: Noon. PREOPERATIVE DIAGNOSIS: Left intertrochanteric hip fracture. POSTOPERATIVE DIAGNOSIS: Left intertrochanteric hip fracture. NAME OF OPERATION: Left hip cephalomedullary nail, intermediate. SURGEON: Declan Slater MD HOT SAW HELPER: None. SUPERVISING ATTENDING: Declan Slater MD FINDINGS: The patient had a left intertochanteric hip fracture which was a closed injury. INDICATIONS: This is an 80-year-old female who sustained a left hip intertrochanteric fracture after a ground level fall when she tripped on her shoe strap at her home on the October,. The patient sustained the aforementioned ground level fall. She was initially seen at [facility] and transferred to [facility] for further evaluation and treatment where she was indicated for a left hip cephalomedullary nail. ANESTHESIA: GETA. TOURNIQUET TIME: None used. ESTIMATED BLOOD LOSS: 100 mL. IV FLUIDS: Please see anesthesia report. IV ANTIBIOTICS: Please see anesthesia report. IMPLANTS: Synthes CULTURES: None. SPECIMENS: None. DESCRIPTION OF PROCEDURE: The patient was met in the preoperative holding area where the patient's operative extremity was signed, the patient's consent was confirmed to be correct, and the patient's identity was confirmed to be correct. The patient was then transported to the operating theater where she was placed in a supine position on a fracture table. A safety strap secured the patient to the bed. All bony prominences were well padded. The contralateral lower extremity had an SCD placed. A timeout was called which confirmed the correct patient, correct operative extremity and correct consent. All staff were in agreement. The patient was then draped in the usual sterile fashion. We began the procedure by obtaining fluoroscopic imaging with light traction on the left lower extremity in order to identify the fracture and in order to reduce it with light traction using the fracture table. After obtaining AP and lateral views, I then began the procedure. I made a one inch incision approximately three fingerbreadths proximal to the tip of the greater trochanter. After incising the skin, I then incised the IT band and used an awl in order to place it just medial to the tip of the greater trochanter on the AP view and in line with the femoral neck and shaft on the lateral view. I then placed a threaded guide pin through the cannulated awl and introduced this to the level the lesser trochanter which was in line with the femoral neck and shaft on the lateral view. I then removed the cannulated awl and used an entry reamer in order to gain access to the proximal femoral canal. At this point in time, I then introduced a ball-tip guidewire down to the distal femur physeal scar. I then reamed using a 12 mm reamer in order to ensure that the nail would fit appropriately. I then used a 60 mm reamer in order to ream the superomedial aspect of the proximal osseous canal in order to ensure that her hip did not go into valgus implantation of the cephalomedullary nail. At this point in time, I then introduced the cephalomedullary nail in position and advanced with light taps of the mallet. Once it was advanced to the appropriate level, I then removed the ball-tip wire and placed the jig onto the nail to be used for placement of the lag screw through the guide pin. This was introduced at the lateral aspect of the patient's proximal femur and advanced using AP and lateral fluoroscopy. This was in line with the femoral neck on the lateral view and just inferior to the midline of the femoral neck in the coronal view. This was advanced through subchondral bone. Once it was appropriately advanced, I measured the lag screw that would be used which was 90 mm. I then drilled the osseous canal which would be used for a lag screw placement. We then placed the 90 mm lag screw into position within subchondral bone. At this point in time, I then let the traction off the left lower extremity and used the compression mode of the jig in order to provide compression for the inner trochanteric fracture. I then placed the set screw into position which was locked down to ensure that it would maintain compression of the fracture. I then removed the lag screw jig as well as the screwdriver which was used to tighten the set screw. At this point in time, I turned my attention to the distal interlocking screw. I used a triple sleeve and a small incision to advance the triple sleeve to the level of the bone. I drilled a bicortical distal interlocking transosseous hole, removed the drill and then placed a 32 mm bicortical screw in the distal interlocking hole of the intermediate nail. I then removed the jig as well as the triple sleeve and took final fluoroscopic imaging with an AP view of the hip and the AP view of the distal implant as well as a lateral view of the hip and a lateral view of the distal implant to ensure that my distal interlocking screw was within the nail. It was. I then copiously irrigated all surgical incisions, closed the IT band using an 0 Vicryl suture and closed the dermal layer of my three percutaneous incisions using a 2-0 Vicryl and closed the skin using metallic maurice. I placed a Mepiform dressing over the patient's surgical incisions. She was then extubated without complication and transported to the postanesthesia care unit. The patient will be weightbearing as tolerated to the left lower extremity. She will follow the hip cephalomedullary nail rehabilitative protocol which includes ambulation training with physical therapy. The patient will be transferred to the hospitalist service. I recommend 81 mg of aspirin daily, once daily for 30 days starting on the October, or an equivalent for DVT chemoprophylaxis. The patient will follow up in the [facility] orthopedic clinic on the November, for wound check.
[2020-11-19] MEDS ORDERED: oxyCODONE 5MG TAB PO PRN (14:50)
[2020-11-19] MEDS: RAMELTEON 8 MG TAB (ROZEREM) PO PRN (20:54)
[2020-11-20 02:00] VITALS: BP 135/60
[2020-11-20] MEDS: ACETAMINOPHEN TAB 650MG DOSE (2X325MG) PO PRN ×2 (02:34→10:03)
[2020-11-20 06:00] VITALS: BP 122/58
[2020-11-20 08:00] VITALS: BP 154/83
[2020-11-20] MEDS ORDERED: PILL CUTTER 1 EACH XX PRN (08:10)
[2020-11-20] MEDS ORDERED: ASPIRIN 81MG ENTERIC TABLET PO SCH (09:00)
[2020-11-20] MEDS ORDERED: lisinopriL 5 MG TAB PO SCH (09:00)
[2020-11-20] MEDS ORDERED: OCUVITE 1 TAB PO SCH (09:00)
[2020-11-20] MEDS ORDERED: SERTRALINE HCL 50 MG TAB PO SCH (09:00)
[2020-11-20] MEDS ORDERED: ROSUVASTATIN 10 MG TAB (CRESTOR) PO SCH (09:00)
[2020-11-20] MEDS ORDERED: NAPROXEN 250 MG TAB PO SCH (09:00)
[2020-11-20 10:05] VITALS: BP 138/94
[2020-11-20] MEDS ORDERED: ASPI-551 PO (12:16)
[2020-11-20] MEDS ORDERED: ACET1TAB55 PO (12:16)
[2020-11-20 14:00] VITALS: BP 123/58
--- NOTE | 2020-11-20 14:13 | DS.PDOC ---
Discharge Summary General Date of Admission Nov 18, 2020 at 12:40 Date of Discharge 11/20/2020 Discharge Summary PRIMARY CARE PHYSICIAN: Dr. Dalton Aponte ATTENDING AT TIME OF DISCHARGE: Dr. Gamal Burrows, DISCHARGE DIAGNOS(E)S: Left intertrochanteric hip fracture Hypertension Hyperlipidemia Depression HPI & HOSPITAL COURSE: Patient was outside living her dog a lot on the morning of November 18, 2020 when she reports that she either tripped over her shoelaces or the step in front of her porch, she fell and sustained a fracture of the left hip. This was simply a mechanical fall, she did not experience any syncope, loss of consciousness, nor did she hit her head. She was transferred to our facility from [facility] for evaluation by orthopedics. She was taken for a left hip cephalomedullary nail, intermediate performed by Dr. Declan Slater MD on 11/19/2020. Today is postop day 1, she is doing well postoperatively, she was seen and evaluated by our rehabilitation team and is accepted for admission at our acute rehabilitation unit, and will be transferred to their service later today. PHYSICAL EXAMINATION ON DISCHARGE: GENERAL: Awake, alert, oriented x3. She is in no acute distress at this time. CARDIOVASCULAR EXAMINATION: Regular rate and rhythm, with no rubs, gallops, or murmur. RESPIRATORY EXAMINATION: Clear to auscultation bilaterally with no wheezes, rales, or rhonchi. ABDOMINAL EXAMINATION: Soft, nontender, nondistended. Bowel sounds present. EXTREMITIES: No clubbing or edema noted. 2+ pulses in the radial bilaterally. Bandage overlying left hip is clean and dry. DISPOSITION: To acute rehabilitation unit DISCHARGE INSTRUCTIONS: Follow-up with PM&R physician upon arrival to ARU. Out of bed ad cherelle. with assist. Regular diet. Follow-up in the [facility] orthopedic clinic November 30, [address] Slater For wound check New Medications: Aspirin 81 mg for 30 days Vital Signs/I&Os Vital Signs Date Time Temp Pulse Resp B/P (MAP) Pulse Ox O2 Delivery O2 Flow Rate FiO2 11/20/20 10:05 138/94 11/20/20 08:00 98.1 81 16 96 Room Air I&O- Last 24 Hours up to 6 AM 11/20/20 05:59 Intake Total 1250 ml Output Total 900 ml Balance 350 ml Discharge Medications Scheduled Aspirin (Aspirin EC) 81 Mg Tablet.dr, 81 MG PO DAILY Lisinopril (Lisinopril) 5 Mg Tablet, 5 MG PO DAILY, (Reported) Naproxen (Naproxen) 500 Mg Tablet.dr, 500 MG PO DAILY, (Reported) Rosuvastatin Calcium (Rosuvastatin Calcium) 5 Mg Tablet, 5 MG PO DAILY, (Reported) Sertraline HCl (Sertraline HCl) 50 Mg Tablet, 50 MG PO DAILY, (Reported) Vit A/Vit C/Vit E/Zinc/Copper (Preservision Areds Softgel) 1 Each Capsule, 1 CAP PO DAILY, (Reported) Scheduled PRN Acetaminophen (Acetaminophen) 325 Mg Tablet, 650 MG PO Q4H PRN for MILD PAIN or TEMP > 101 Allergies Coded Allergies: codeine (Verified Allergy, Intermediate, RASH, CONFUSION, 09/30/18) GAMAL BURROWS DO Nov 20, 2020 14:13
== END 2020-11-20 16:00 | DRG 482 ==
LOC: M MS5PR 12:40
PROVIDERS: ADMIT Internal Medicine; ATTEND Neuromusculoskeletal Medicine & OMM
PROC: 0QS706Z Reposition Left Upper Femur with Intramedullary Internal Fixation Device, Open Approach (ICD-10-PCS; principal; 2020-11-19 12:00)
DX: S72.145A Nondisplaced intertrochanteric fracture of left femur, initial encounter for closed fracture (principal); I11.9 Hypertensive heart disease without heart failure; E78.5 Hyperlipidemia, unspecified; F32.9 Major depressive disorder, single episode, unspecified; Z90.49 Acquired absence of other specified parts of digestive tract; Z98.49 Cataract extraction status, unspecified eye; Z88.5 Allergy status to narcotic agent; Z79.899 Other long term (current) drug therapy; W01.0XXA Fall on same level from slipping, tripping and stumbling without subsequent striking against object, initial encounter; Y92.009 Unspecified place in unspecified non-institutional (private) residence as the place of occurrence of the external cause

== ENCOUNTER 2020-11-20 12:51 | Inpatient (IN) | payer MEDICARE ==
[~2020-11-20 12:51] MED LIST changes: +ACET1TAB55 PO; +ASPI-551 PO; +NAPR500T6 PO; +PRESCAP PO; +ROSU5TAB5 PO; +SERT50TA29 PO
[2020-11-20] MEDS ORDERED: MAALOX 30 ML SUSP *UDC PO PRN (15:40)
[2020-11-20] MEDS ORDERED: MIRALAX *UNIT DOSE* 17GM PACKET PO PRN (15:40)
[2020-11-20] MEDS: ACETAMINOPHEN 500 MG TAB PO SCH ×2 (16:00→20:31)
[2020-11-20 16:10] VITALS: BP 113/57
[2020-11-20] MEDS ORDERED: PILL CUTTER 1 EACH XX PRN (16:30)
[2020-11-20] MEDS: REMEDY PHYTOPLEX Z-GUARD PASTE 113GM TUBE (FROM STOREROOM PRODUCT) TOP SCH ×2 (18:00→20:32)
[2020-11-20 20:00] VITALS: BP 114/56
[2020-11-20] MEDS: RAMELTEON 8 MG TAB (ROZEREM) PO SCH (20:28)
[2020-11-20] MEDS: oxyCODONE 5MG TAB PO PRN (20:30)
[2020-11-20] MEDS: DOCUSATE SODIUM 100MG CAPSULE PO SCH (20:32)
[2020-11-20] MEDS: SENNA 8.6 MG TAB (SENOKOT) PO SCH (20:32)
[2020-11-21 06:00] VITALS: BP 112/63
[2020-11-21 06:43] LABS: BASO # 0.1 10^3/uL (0.0-0.2); BASO % 0.6 % (0.0-1.0); EOS # 0.5 10^3/uL (0.0-0.5); EOS % 5.2 % (0.0-3.0); HEMATOCRIT 25.7 % (36.0-47.0); HEMOGLOBIN 8.4 g/dl (12.0-15.5); LYMPH # 0.7 10^3/uL (1.5-5.0); LYMPH % 8.2 % (24.0-44.0); MEAN CORPUSCULAR HEMOGLOBIN 29.4 pg (27.0-33.0); MEAN CORPUSCULAR HGB CONC 32.7 g/dl (32.0-36.5); MEAN CORPUSCULAR VOLUME 89.9 fl (80.0-96.0); MONO # 0.9 10^3/uL (0.0-0.8); MONO % 10.1 % (2.0-8.0); NEUTROPHILS # 6.5 10^3/uL (1.5-8.5); NEUTROPHILS % 75.3 % (36.0-66.0); PLATELET COUNT, AUTOMATED 151 10^3/uL (150-450); RED BLOOD COUNT 2.86 10^6/uL (4.00-5.40); WHITE BLOOD COUNT 8.7 10^3/uL (4.0-10.0)
[2020-11-21 07:12] LABS: ALBUMIN 2.4 GM/DL (3.2-5.2); BILIRUBIN,TOTAL 0.5 MG/DL (0.2-1.0); CREATININE FOR GFR 1.32 MG/DL (0.55-1.30); GLOMERULAR FILTRATION RATE 41.1 (>32); POTASSIUM SERUM 4.2 MEQ/L (3.5-5.1); TOTAL PROTEIN 4.9 GM/DL (6.4-8.2)
[2020-11-21] MEDS: PANTOPRAZOLE 40MG TAB (PROTONIX) PO SCH (07:46)
[2020-11-21] MEDS: SERTRALINE HCL 50 MG TAB PO SCH (07:46)
[2020-11-21] MEDS: ROSUVASTATIN 10 MG TAB (CRESTOR) PO SCH (07:47)
[2020-11-21] MEDS: ASPIRIN 81MG ENTERIC TABLET PO SCH (07:47)
[2020-11-21] MEDS: OCUVITE 1 TAB PO SCH (07:47)
[2020-11-21] MEDS: ACETAMINOPHEN 500 MG TAB PO SCH ×3 (07:47→20:17)
[2020-11-21] MEDS: lisinopriL 5 MG TAB PO SCH (07:48)
[2020-11-21] MEDS: oxyCODONE 5MG TAB PO PRN ×3 (07:48→20:17)
[2020-11-21] MEDS: REMEDY PHYTOPLEX Z-GUARD PASTE 113GM TUBE (FROM STOREROOM PRODUCT) TOP SCH ×3 (07:49→21:00)
[2020-11-21] MEDS: DOCUSATE SODIUM 100MG CAPSULE PO SCH ×2 (07:49→21:00)
--- NOTE | 2020-11-21 11:53 | HPEPDOC ---
Survey Methodologist Note DATE OF ADMISSION: 11-20-20 DATE OF SERVICE: 11-21-20 TIME OF ADMISSION: Please refer to physician's admission order. 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 Hip xray revealed, Acute moderately displaced intratrochanteric fracture of the left femur... Ossification with irregular lucency adjacent to the greater trochanter in the right femur. Acute or chronic chronic fracture of the greater trochanter of the right femur cannot be excluded. She was evaluated by orthopedics who performed an ORIF on 11-19-20, made WBAT to the left lower extremity and placed on baby aspirin for DVT prophylaxis. She had post-op anemia, weakness, and pain, was evaluated by therapy where she was found to have mobility and ADL and deemed medically appropriate for discharge to ARU. REVIEW OF SYSTEMS: The following is a completed review of systems and has been reviewed. Review of systems otherwise unremarkable. PAIN: Patient self reports left hip pain EYES: No recent vision changes EARS, NOSE, & THROAT: No throat pain, or dysphagia, or rhinorrhea CARDIOVASCULAR: Denies chest pain or palpitation. PULMONARY: Denies shortness of breath, mild cough (chronic) GASTROINTESTINAL: Denies constipation/diarrhea GENITOURINARY: denies dysuria MUSCULOSKELETAL: s/p left hip ORIF NEUROLOGICAL:denies paresthesias HEMATOLOGICAL: +anemia SKIN: left hip incision PSYCHIATRIC: Unremarkable All other review of systems found to be negative. PAST MEDICAL HISTORY: as per HPI PAST SURGICAL HISTORY: Right hip fracture, cervical laminectomy, cataract surgery, appendectomy, tubal ligation, ovarian cyst torsion ALLERGIES: Please see below. MEDICATIONS: Please see below. SOCIAL HISTORY:Non-smoker, however chronic second-hand smoke exposure, rare etoh, no illicit drugs DIET: low sodium PHYSICAL EXAMINATION: VITAL SIGNS: Please see below. GENERAL: Pleasant and cooperative. No acute distress. HEENT: PERRL. Extraocular movements intact. Clear conjunctiva CARDIOVASCULAR: Regular rate and rhythm. No murmurs, rubs, or gallops LUNGS: Clear to auscultation bilaterally. No wheezes. No rhonchi ABDOMEN: Soft, nontender, nondistended. Positive bowel sounds. Normal active bowel sounds NEUROLOGICAL: Alert and oriented times three. Cranial nerves II through XII grossly intact. Sensation grossly intact including first web space on left foot EXTREMITIES:5\5 strength bilateral upper extremities. 5\5 strength right lower extremity. 5/5 strength in left ankle DF/PF/EHL (limited exam due to surgery) SKIN: peggy-incisional site c/d/i no ecchymosis LABORATORY DATA: Please see below. IMAGING:Imaging documentation personally reviewed by record FUNCTIONAL STATUS: Premorbid: Independent with all activities of daily life as well as mobility On Admission: Min assist for be mobility, functional transfers, ambulation, (total for lower body dressing) GOALS: Mod-I for bed mobility, functional transfers, ambulation, dressing, toileting, bathing ASSESSMENT:80-year-old F with past medical history of HTN, HLD, depression who presents status post fall with left hip fracture and ORIF PLAN: 1.Rehab- PT/OT advance mobility and ADLs, strengthen/stretch/maintain ROM all 4 limbs 2. Ortho s/p left hip ORIF cont WBAT, questionable left greater trochanter fracture on recent hip Xray, ortho reviewed, no surgical intervention -f/u ortho as outpatient 3. Cardiac- hx of HTN cont BP meds -HLD cont statin -medicine consulted to assist in overall management 4. Resp- patient appears to have COPD, she is declining breathing treatments, will cont to monitor 5. DVT ppx- ASA 81 daily and TEDs 6. GI ppx- protonix 7. Pain- tylenol and oxycodone 8. Psych- zoloft for depression 9. Dispo- TBD POST ADMISSION PHYSICIAN EVALUATION: Medical and functional status: Description of medical status, medical assessment: As above. Rehabilitation diagnosis and current and prior cold morbid medical conditions as above. Risk of complications and plans to mitigate them as above. Description of functional status current status is as above. Prior status as above. Status compared to preadmission: There are no clinically significant differences between the patient's current status and the information described on the preadmission screening document. Treatment plan anticipated: Treatment plan is as described above. Required disc iplines including physical therapy, occupational therapy, others as noted above. Intensity of services: 3 hours a day, 6 days a week. Special considerations: There are no specific special or safety considerations that would likely preclude immediate implementation of an intensive rehabilitation program or subsequently influence the plan of care. ATTESTATION: Considering all the information above, it is my best judgment that this patient requires intensive rehabilitation therapy as described above and an inpatient hospital environment due to the complexity of nursing, medical, and rehabilitation needs required by the patient. Furthermore, this patient can reasonably be expected to participate in an benefit from an inpatient rehabilitation stay with an interdisciplinary team approach to the delivery of rehabilitation care under the direction and supervision of rehabilitation physician. PROGNOSIS: Excellent ESTIMATED LENGTH OF STAY:7-10 days. PROJECTED DISCHARGE DESTINATION: Home with family support and any durable medical equipment required to increase functional safety and mobility. TIME SPENT COUNSELING AND COORDINATING INITIAL CARE: Greater than 70 minutes. Vital Signs Vital Sign - Last 24 Hours 11/20/20 11/20/20 11/20/20 11/20/20 16:10 20:00 20:30 21:17 Temp 98.8 97.8 Pulse 89 80 Resp 20 20 18 18 B/P (MAP) 113/57 (75) 114/56 (75) Pulse Ox 96 95 O2 Delivery Room Air Room Air 11/21/20 11/21/20 11/21/20 11/21/20 06:00 07:48 07:48 08:20 Temp 97.7 Pulse 89 Resp 16 18 18 B/P (MAP) 112/63 (79) 114/69 Pulse Ox 94 O2 Delivery Room Air Laboratory Data CBC/BMP Laboratory Tests 11/21/20 06:08 Labs 24H Laboratory Tests 2 11/21/20 06:08: Immature Granulocyte % (Auto) 0.6, Neutrophils (%) (Auto) 75.3H, Lymphocytes (%) (Auto) 8.2L, Monocytes (%) (Auto) 10.1H, Eosinophils (%) (Auto) 5.2H, Basophils (%) (Auto) 0.6, Neutrophils # (Auto) 6.5, Lymphocytes # (Auto) 0.7L, Monocytes # (Auto) 0.9H, Eosinophils # (Auto) 0.5, Basophils # (Auto) 0.1, Nucleated Red Blood Cells % (auto) 0.0, Anion Gap 6L, Glomerular Filtration Rate 41.1, Calcium Level 8.0L, Total Bilirubin 0.5, Aspartate Amino Transf (AST/SGOT) 27, Alanine Aminotransferase (ALT/SGPT) 18, Alkaline Phosphatase 78, Total Protein 4.9L, Albumin 2.4L, Albumin/Globulin Ratio 1.0L Home Medications Scheduled Aspirin (Aspirin EC) 81 Mg Tablet.dr, 81 MG PO DAILY Lisinopril (Lisinopril) 5 Mg Tablet, 5 MG PO DAILY, (Reported) Naproxen (Naproxen) 500 Mg Tablet.dr, 500 MG PO DAILY, (Reported) Rosuvastatin Calcium (Rosuvastatin Calcium) 5 Mg Tablet, 5 MG PO DAILY, (Reported) Sertraline HCl (Sertraline HCl) 50 Mg Tablet, 50 MG PO DAILY, (Reported) Vit A/Vit C/Vit E/Zinc/Copper (Preservision Areds Softgel) 1 Each Capsule, 1 CAP PO DAILY, (Reported) Scheduled PRN Acetaminophen (Acetaminophen) 325 Mg Tablet, 650 MG PO Q4H PRN for MILD PAIN or TEMP > 101 Allergies Coded Allergies: codeine (Verified Allergy, Intermediate, RASH, CONFUSION, 09/30/18) A-FIB/CHADSVASC A-FIB History Current/History of A-Fib/PAF?: No Current PO Anticoag Therapy: No TOMI MILLER MD Nov 21, 2020 11:53
--- NOTE | 2020-11-21 13:02 | IPNPDOC ---
Text Note Date of Service The patient was seen on 11/21/20. NOTE Subjective: Patient seen and examined at bedside. No acute overnight events reported. Patient voices no new medical complaints this morning. Objective: Vital Signs: reviewed and within normal limits General: NAD, lying comfortably in bed, elderly HEENT: NC/AT, EOMI Neck: supple, no masses Chest: lungs CTA B/L Heart: +S1S2, RRR Abd: soft, NT, ND, +BS Ext: no edema Skin: no rashes MSK: full ROM at large joints Neuro: no gross focal deficits Psych: AAOx3 A/P: 80-year-old female admitted for left hip fracture status post left hip cephalomedullary nailing discharged to ARU for further physical rehabilitation. #Left intertrochanteric hip fracture - s/p surgical intervention - continue with rehab as per primary team #HTN - continue lisinopril #HLD - continue Crestor #depression - continue zoloft VS,Fishbone, I+O VS, Fishbone, I+O Laboratory Tests 11/21/20 06:08 Vital Signs Date Time Temp Pulse Resp B/P (MAP) Pulse Ox O2 Delivery O2 Flow Rate FiO2 11/21/20 08:20 18 11/21/20 07:48 114/69 11/21/20 06:00 97.7 89 94 Room Air I&O- Last 24 Hours up to 6 AM 11/21/20 06:00 Intake Total 240 ml Balance 240 ml BRITTANY PERDUE MD Nov 21, 2020 13:02
[2020-11-21 14:00] VITALS: BP 138/63
[2020-11-21 20:00] VITALS: BP 119/56
[2020-11-21] MEDS: RAMELTEON 8 MG TAB (ROZEREM) PO SCH (20:17)
[2020-11-21] MEDS: SENNA 8.6 MG TAB (SENOKOT) PO SCH (21:00)
[2020-11-22 06:00] VITALS: BP 135/61
[2020-11-22 06:51] LABS: BASO % 0.6 % (0.0-1.0); EOS # 0.6 10^3/uL (0.0-0.5); EOS % 7.6 % (0.0-3.0); HEMATOCRIT 25.4 % (36.0-47.0); LYMPH # 0.9 10^3/uL (1.5-5.0); LYMPH % 12.7 % (24.0-44.0); MEAN CORPUSCULAR HEMOGLOBIN 29.2 pg (27.0-33.0); MEAN CORPUSCULAR HGB CONC 31.5 g/dl (32.0-36.5); MEAN CORPUSCULAR VOLUME 92.7 fl (80.0-96.0); MONO # 0.7 10^3/uL (0.0-0.8); MONO % 10.1 % (2.0-8.0); NEUTROPHILS % 68.4 % (36.0-66.0); PLATELET COUNT, AUTOMATED 173 10^3/uL (150-450); RED BLOOD COUNT 2.74 10^6/uL (4.00-5.40); WHITE BLOOD COUNT 7.3 10^3/uL (4.0-10.0)
[2020-11-22 07:13] LABS: CALCIUM LEVEL 8.3 MG/DL (8.8-10.2); CREATININE FOR GFR 1.4 MG/DL (0.55-1.30); GLOMERULAR FILTRATION RATE 38.4 (>32); POTASSIUM SERUM 4.7 MEQ/L (3.5-5.1)
[2020-11-22] MEDS: PANTOPRAZOLE 40MG TAB (PROTONIX) PO SCH (07:43)
[2020-11-22] MEDS: lisinopriL 5 MG TAB PO SCH (07:44)
[2020-11-22] MEDS: SERTRALINE HCL 50 MG TAB PO SCH (07:44)
[2020-11-22] MEDS: ASPIRIN 81MG ENTERIC TABLET PO SCH (07:44)
[2020-11-22] MEDS: ACETAMINOPHEN 500 MG TAB PO SCH ×3 (07:44→20:41)
[2020-11-22] MEDS: OCUVITE 1 TAB PO SCH (07:44)
[2020-11-22] MEDS: ROSUVASTATIN 10 MG TAB (CRESTOR) PO SCH (07:44)
[2020-11-22] MEDS: REMEDY PHYTOPLEX Z-GUARD PASTE 113GM TUBE (FROM STOREROOM PRODUCT) TOP SCH ×3 (09:00→20:42)
[2020-11-22] MEDS: DOCUSATE SODIUM 100MG CAPSULE PO SCH ×2 (09:00→20:42)
--- NOTE | 2020-11-22 10:20 | IPNPDOC ---
PM&R Progress Note DATE OF SERVICE: Nov 22, 2020 Graphic Design Professor Progress Note Subjective: Patient asking to have her IV removed, denies cough or fever, states her left hip is sore, but is not bothering her too much. REVIEW OF SYSTEMS: The following is a completed review of systems and has been reviewed. Review of systems otherwise unremarkable. PAIN: Patient self reports left hip pain EYES: No recent vision changes EARS, NOSE, & THROAT: No throat pain, or dysphagia, or rhinorrhea CARDIOVASCULAR: Denies chest pain or palpitation. PULMONARY: Denies shortness of breath, mild cough (chronic) GASTROINTESTINAL: Denies constipation/diarrhea GENITOURINARY: denies dysuria MUSCULOSKELETAL: s/p left hip ORIF NEUROLOGICAL:denies paresthesias HEMATOLOGICAL: +anemia SKIN: left hip incision PSYCHIATRIC: Unremarkable All other review of systems found to be negative. PHYSICAL EXAMINATION: VITAL SIGNS: Please see below. GENERAL: Pleasant and cooperative. No acute distress. HEENT: PERRL. Extraocular movements intact. Clear conjunctiva CARDIOVASCULAR: Regular rate and rhythm. No murmurs, rubs, or gallops LUNGS: Clear to auscultation bilaterally. No wheezes. No rhonchi ABDOMEN: Soft, nontender, nondistended. Positive bowel sounds. Normal active bowel sounds NEUROLOGICAL: Alert and oriented times three. Cranial nerves II through XII scott sly intact. Sensation grossly intact including first web space on left foot EXTREMITIES:5\5 strength bilateral upper extremities. 5\5 strength right lower extremity. 5/5 strength in left ankle DF/PF/EHL (limited exam due to surgery) SKIN: peggy-incisional site c/d/i no ecchymosis GOALS: Mod-I for bed mobility, functional transfers, ambulation, dressing, toileting, bathing ASSESSMENT:80-year-old F with past medical history of HTN, HLD, depression who presents status post fall with left hip fracture and ORIF PLAN: 1.Rehab- PT/OT advance mobility and ADLs, strengthen/stretch/maintain ROM all 4 limbs, ambulating with RW 2. Ortho s/p left hip ORIF cont WBAT, questionable left greater trochanter fracture on recent hip Xray, ortho reviewed, no surgical intervention -f/u ortho as outpatient 3. Cardiac- hx of HTN cont BP meds -HLD cont statin -medicine consulted to assist in overall management 4. Resp- patient appears to have COPD, she is declining breathing treatments, will cont to monitor 5. DVT ppx- ASA 81 daily and TEDs 6. GI ppx- protonix 7. Pain- tylenol and oxycodone 8. Psych- zoloft for depression 9. Dispo- 12-01-20 to home, progressing towards goals Allergies Coded Allergies: codeine (Verified Allergy, Intermediate, RASH, CONFUSION, 09/30/18) Vital Signs Vital Signs Date Time Temp Pulse Resp B/P (MAP) Pulse Ox O2 Delivery O2 Flow Rate FiO2 11/22/20 07:44 135/61 11/22/20 06:00 97.4 72 14 96 Room Air Laboratory Data CBC/BMP Laboratory Tests 11/22/20 06:12 Labs 24H Laboratory Tests 2 11/22/20 06:12: Immature Granulocyte % (Auto) 0.6, Neutrophils (%) (Auto) 68.4H, Lymphocytes (%) (Auto) 12.7L, Monocytes (%) (Auto) 10.1H, Eosinophils (%) (Auto) 7.6H, Basophils (%) (Auto) 0.6, Neutrophils # (Auto) 5.0, Lymphocytes # (Auto) 0.9L, Monocytes # (Auto) 0.7, Eosinophils # (Auto) 0.6H, Basophils # (Auto) 0.0, Nucleated Red Blood Cells % (auto) 0.0, Anion Gap 6L, Glomerular Filtration Rate 38.4, Calcium Level 8.3L Current Medications Current Medications Current Medications Medications (Trade) Dose Ordered Sig/Golden Route PRN Reason Start Time Stop Time Status Last Admin Dose Admin Acetaminophen (Tylenol Tab) 1,000 mg TID PO 11/20/20 16:00 11/22/20 07:44 Al Hydrox/Mg Hydrox/Simethicone (Mylanta) 30 ml Q6HP PRN PO HEARTBURN 11/20/20 15:40 Aspirin (Ecotrin) 81 mg DAILY PO 11/21/20 09:00 11/22/20 07:44 Docusate Sodium (Colace) 100 mg BID PO 11/20/20 21:00 Lisinopril (Prinivil) 5 mg DAILY PO 11/21/20 09:00 11/22/20 07:44 Multivitamins (Ocuvite(I-Laura)) 1 tab DAILY PO 11/21/20 09:00 11/22/20 07:44 Oxycodone HCl (Roxicodone, Oxyir) 2.5 mg Q4HP PRN PO MODERATE PAIN (PS 5-7) 11/20/20 15:40 11/21/20 20:17 Pantoprazole Sodium (Protonix) 40 mg DAILY PO 11/21/20 09:00 11/22/20 07:43 Polyethylene Glycol (Miralax) 1 pkt DAILY PRN PO CONSTIPATION 11/20/20 15:40 Ramelteon (Rozerem) 8 mg QHS PO 11/20/20 21:00 11/21/20 20:17 Rosuvastatin Calcium (Crestor) 5 mg DAILY PO 11/21/20 09:00 11/22/20 07:44 Senna (Senokot) 1 tab QHS PO 11/20/20 21:00 Sertraline HCl (Zoloft) 50 mg DAILY PO 11/21/20 09:00 11/22/20 07:44 TOMI MILLER MD Nov 22, 2020 10:20
[2020-11-22 14:00] VITALS: BP 133/63
[2020-11-22 20:00] VITALS: BP 147/60
[2020-11-22] MEDS: RAMELTEON 8 MG TAB (ROZEREM) PO SCH (20:41)
[2020-11-22] MEDS: SENNA 8.6 MG TAB (SENOKOT) PO SCH (20:42)
[2020-11-22] MEDS: oxyCODONE 5MG TAB PO PRN (20:42)
[2020-11-23 06:00] VITALS: BP 109/55
[2020-11-23] MEDS: PANTOPRAZOLE 40MG TAB (PROTONIX) PO SCH (08:22)
[2020-11-23] MEDS: DOCUSATE SODIUM 100MG CAPSULE PO SCH ×2 (08:23→21:54)
[2020-11-23] MEDS: SERTRALINE HCL 50 MG TAB PO SCH (08:23)
[2020-11-23] MEDS: ROSUVASTATIN 10 MG TAB (CRESTOR) PO SCH (08:23)
[2020-11-23] MEDS: ASPIRIN 81MG ENTERIC TABLET PO SCH (08:33)
[2020-11-23] MEDS: lisinopriL 5 MG TAB PO SCH (08:33)
[2020-11-23] MEDS: OCUVITE 1 TAB PO SCH (08:33)
[2020-11-23] MEDS: ACETAMINOPHEN 500 MG TAB PO SCH ×3 (08:35→21:54)
[2020-11-23] MEDS: REMEDY PHYTOPLEX Z-GUARD PASTE 113GM TUBE (FROM STOREROOM PRODUCT) TOP SCH ×3 (08:35→21:00)
--- NOTE | 2020-11-23 10:03 | IPNPDOC ---
PM&R Progress Note DATE OF SERVICE: Nov 23, 2020 Senior Risk Manager Progress Note Subjective: Patient stating she thinks oxycodone is too strong for her and she prefers to try tramadol. REVIEW OF SYSTEMS: The following is a completed review of systems and has been reviewed. Review of systems otherwise unremarkable. PAIN: Patient self reports left hip pain EYES: No recent vision changes EARS, NOSE, & THROAT: No throat pain, or dysphagia, or rhinorrhea CARDIOVASCULAR: Denies chest pain or palpitation. PULMONARY: Denies shortness of breath, mild cough (chronic) GASTROINTESTINAL: Denies constipation/diarrhea GENITOURINARY: denies dysuria MUSCULOSKELETAL: s/p left hip ORIF NEUROLOGICAL:denies paresthesias HEMATOLOGICAL: +anemia SKIN: left hip incision PSYCHIATRIC: Unremarkable All other review of systems found to be negative. PHYSICAL EXAMINATION: VITAL SIGNS: Please see below. GENERAL: Pleasant and cooperative. No acute distress. HEENT: PERRL. Extraocular movements intact. Clear conjunctiva CARDIOVASCULAR: Regular rate and rhythm. No murmurs, rubs, or gallops LUNGS: Clear to auscultation bilaterally. No wheezes. No rhonchi ABDOMEN: Soft, nontender, nondistended. Positive bowel sounds. Normal active bowel sounds NEUROLOGICAL: Alert and oriented times three. Cranial nerves II through XII grossly intact. Sensation grossly intact including first web space on left foot EXTREMITIES:5\5 strength bilateral upper extremities. 5\5 strength right lower extremity. 5/5 strength in left ankle DF/PF/EHL (limited exam due to surgery) SKIN: peggy-incisional site c/d/i no ecchymosis ASSESSMENT:80-year-old F with past medical history of HTN, HLD, depression who presents status post fall with left hip fracture and ORIF PLAN: 1.Rehab- PT/OT advance mobility and ADLs, strengthen/stretch/maintain ROM all 4 limbs, ambulating with RW 2. Ortho s/p left hip ORIF cont WBAT, questionable left greater trochanter fracture on recent hip Xray, ortho reviewed, no surgical intervention -f/u ortho as outpatient -PT requesting abductor pillow to stretch adductors, patient can use prn 3. Cardiac- hx of HTN cont BP meds -HLD cont statin -medicine consulted to assist in overall management 4. Resp- patient appears to have COPD, she is declining breathing treatments, will cont to monitor 5. DVT ppx- ASA 81 daily and TEDs 6. GI ppx- protonix 7. Pain- tylenol, will switch to tramadol per patient request 8. Psych- zoloft for depression 9. Dispo- 12-01-20 to home, progressing towards goals Allergies Coded Allergies: codeine (Verified Allergy, Intermediate, RASH, CONFUSION, 09/30/18) Vital Signs Vital Signs Date Time Temp Pulse Resp B/P (MAP) Pulse Ox O2 Delivery O2 Flow Rate FiO2 11/23/20 08:33 125/60 11/23/20 06:00 98.2 65 17 93 Room Air Current Medications Current Medications Current Medications Medications (Trade) Dose Ordered Sig/Golden Route PRN Reason Start Time Stop Time Status Last Admin Dose Admin Acetaminophen (Tylenol Tab) 1,000 mg TID PO 11/20/20 16:00 11/23/20 08:35 Al Hydrox/Mg Hydrox/Simethicone (Mylanta) 30 ml Q6HP PRN PO HEARTBURN 11/20/20 15:40 Aspirin (Ecotrin) 81 mg DAILY PO 11/21/20 09:00 11/23/20 08:33 Docusate Sodium (Colace) 100 mg BID PO 11/20/20 21:00 11/23/20 08:23 Lisinopril (Prinivil) 5 mg DAILY PO 11/21/20 09:00 11/23/20 08:33 Multivitamins (Ocuvite(I-Laura)) 1 tab DAILY PO 11/21/20 09:00 11/23/20 08:33 Oxycodone HCl (Roxicodone, Oxyir) 2.5 mg Q4HP PRN PO MODERATE PAIN (PS 5-7) 11/20/20 15:40 11/22/20 20:42 Pantoprazole Sodium (Protonix) 40 mg DAILY PO 11/21/20 09:00 11/23/20 08:22 Polyethylene Glycol (Miralax) 1 pkt DAILY PRN PO CONSTIPATION 11/20/20 15:40 Ramelteon (Rozerem) 8 mg QHS PO 11/20/20 21:00 11/22/20 20:41 Rosuvastatin Calcium (Crestor) 5 mg DAILY PO 11/21/20 09:00 11/23/20 08:23 Senna (Senokot) 1 tab QHS PO 11/20/20 21:00 Sertraline HCl (Zoloft) 50 mg DAILY PO 11/21/20 09:00 11/23/20 08:23 TOMI MILLER MD Nov 23, 2020 10:03
[2020-11-23 14:00] VITALS: BP 122/57
[2020-11-23] MEDS: traMADol 50 MG TAB PO PRN ×2 (17:28→21:55)
[2020-11-23 20:00] VITALS: BP 107/55
[2020-11-23] MEDS: RAMELTEON 8 MG TAB (ROZEREM) PO SCH (21:54)
[2020-11-23] MEDS: SENNA 8.6 MG TAB (SENOKOT) PO SCH (21:55)
[2020-11-24 06:00] VITALS: BP 109/56
[2020-11-24] MEDS: lisinopriL 5 MG TAB PO SCH (09:00)
[2020-11-24] MEDS: OCUVITE 1 TAB PO SCH (09:14)
[2020-11-24] MEDS: ASPIRIN 81MG ENTERIC TABLET PO SCH (09:14)
[2020-11-24] MEDS: SERTRALINE HCL 50 MG TAB PO SCH (09:15)
[2020-11-24] MEDS: DOCUSATE SODIUM 100MG CAPSULE PO SCH ×2 (09:15→20:56)
[2020-11-24] MEDS: PANTOPRAZOLE 40MG TAB (PROTONIX) PO SCH (09:15)
[2020-11-24] MEDS: ROSUVASTATIN 10 MG TAB (CRESTOR) PO SCH (09:15)
[2020-11-24] MEDS: traMADol 50 MG TAB PO PRN ×4 (09:16→20:58)
[2020-11-24] MEDS: ACETAMINOPHEN 500 MG TAB PO SCH ×3 (09:17→20:57)
[2020-11-24] MEDS: REMEDY PHYTOPLEX Z-GUARD PASTE 113GM TUBE (FROM STOREROOM PRODUCT) TOP SCH ×3 (09:18→20:58)
[2020-11-24 10:07] LABS: BASO # 0.1 10^3/uL (0.0-0.2); BASO % 0.7 % (0.0-1.0); EOS # 0.5 10^3/uL (0.0-0.5); EOS % 6.8 % (0.0-3.0); HEMATOCRIT 24.3 % (36.0-47.0); HEMOGLOBIN 7.7 g/dl (12.0-15.5); LYMPH % 14.7 % (24.0-44.0); MEAN CORPUSCULAR HEMOGLOBIN 29.3 pg (27.0-33.0); MEAN CORPUSCULAR HGB CONC 31.7 g/dl (32.0-36.5); MEAN CORPUSCULAR VOLUME 92.4 fl (80.0-96.0); MONO # 0.8 10^3/uL (0.0-0.8); MONO % 12.5 % (2.0-8.0); NEUTROPHILS # 4.3 10^3/uL (1.5-8.5); NEUTROPHILS % 64.7 % (36.0-66.0); PLATELET COUNT, AUTOMATED 235 10^3/uL (150-450); RED BLOOD COUNT 2.63 10^6/uL (4.00-5.40); WHITE BLOOD COUNT 6.7 10^3/uL (4.0-10.0)
[2020-11-24 10:26] LABS: CALCIUM LEVEL 8.3 MG/DL (8.8-10.2); CREATININE FOR GFR 1.34 MG/DL (0.55-1.30); GLOMERULAR FILTRATION RATE 40.4 (>32); POTASSIUM SERUM 4.4 MEQ/L (3.5-5.1)
[2020-11-24] MEDS: FERROUS GLUCONATE 324 MG TAB PO SCH ×2 (13:08→20:57)
--- NOTE | 2020-11-24 13:24 | IPNPDOC ---
PM&R Progress Note DATE OF SERVICE: Nov 24, 2020 Air Traffic Coordinator Progress Note Subjective: Patient stating she thinks oxycodone is too strong for her and she prefers to try tramadol. REVIEW OF SYSTEMS: The following is a completed review of systems and has been reviewed. Review of systems otherwise unremarkable. PAIN: Patient self reports left hip pain EYES: No recent vision changes EARS, NOSE, & THROAT: No throat pain, or dysphagia, or rhinorrhea CARDIOVASCULAR: Denies chest pain or palpitation. PULMONARY: Denies shortness of breath, mild cough (chronic) GASTROINTESTINAL: Denies constipation/diarrhea GENITOURINARY: denies dysuria MUSCULOSKELETAL: s/p left hip ORIF NEUROLOGICAL:denies paresthesias HEMATOLOGICAL: +anemia SKIN: left hip incision PSYCHIATRIC: Unremarkable All other review of systems found to be negative. PHYSICAL EXAMINATION: VITAL SIGNS: Please see below. GENERAL: Pleasant and cooperative. No acute distress. HEENT: PERRL. Extraocular movements intact. Clear conjunctiva CARDIOVASCULAR: Regular rate and rhythm. No murmurs, rubs, or gallops LUNGS: Clear to auscultation bilaterally. No wheezes. No rhonchi ABDOMEN: Soft, nontender, nondistended. Positive bowel sounds. Normal active bowel sounds NEUROLOGICAL: Alert and oriented times three. Cranial nerves II through XII grossly intact. Sensation grossly intact including first web space on left foot EXTREMITIES:5\5 strength bilateral upper extremities. 5\5 strength right lower extremity. 5/5 strength in left ankle DF/PF/EHL (limited exam due to surgery) SKIN: peggy-incisional site c/d/i no ecchymosis ASSESSMENT:80-year-old F with past medical history of HTN, HLD, depression who presents status post fall with left hip fracture and ORIF PLAN: 1.Rehab- PT/OT advance mobility and ADLs, strengthen/stretch/maintain ROM all 4 limbs, ambulating with RW 2. Ortho s/p left hip ORIF cont WBAT, questionable left greater trochanter fracture on recent hip Xray, ortho reviewed, no surgical intervention -f/u ortho as outpatient -PT requesting abductor pillow to stretch adductors, patient can use prn 3. Cardiac- hx of HTN cont BP meds -HLD cont statin -medicine consulted to assist in overall management 4. Resp- patient appears to have COPD, she is declining breathing treatments, will cont to monitor 5. DVT ppx- ASA 81 daily and TEDs 6. GI ppx- protonix 7. Pain- tylenol, switched to tramadol per patient request 8. Psych- zoloft for depression 9. Heme- patient with post-op anemia, Hgb today 7.7 and aptient stating she is not any more tire than usual and prefers to wait to see if her blood count goes up on its own -FOBT ordered 10. Dispo- 12-01-20 to home, progressing towards goals Allergies Coded Allergies: codeine (Verified Allergy, Intermediate, RASH, CONFUSION, 09/30/18) Vital Signs Vital Signs Date Time Temp Pulse Resp B/P (MAP) Pulse Ox O2 Delivery O2 Flow Rate FiO2 11/24/20 13:09 18 Room Air 11/24/20 09:00 106/56 11/24/20 06:00 97.7 75 92 Laboratory Data CBC/BMP Laboratory Tests 11/24/20 08:49 Labs 24H Laboratory Tests 2 11/24/20 08:49: Immature Granulocyte % (Auto) 0.6, Neutrophils (%) (Auto) 64.7, Lymphocytes (%) (Auto) 14.7L, Monocytes (%) (Auto) 12.5H, Eosinophils (%) (Auto) 6.8H, Basophils (%) (Auto) 0.7, Neutrophils # (Auto) 4.3, Lymphocytes # (Auto) 1.0L, Monocytes # (Auto) 0.8, Eosinophils # (Auto) 0.5, Basophils # (Auto) 0.1, Nucleated Red Blood Cells % (auto) 0.0, Anion Gap 8, Glomerular Filtration Rate 40.4, Calcium Level 8.3L Current Medications Current Medications Current Medications Medications (Trade) Dose Ordered Sig/Golden Route PRN Reason Start Time Stop Time Status Last Admin Dose Admin Acetaminophen (Tylenol Tab) 1,000 mg TID PO 11/20/20 16:00 11/24/20 09:17 Al Hydrox/Mg Hydrox/Simethicone (Mylanta) 30 ml Q6HP PRN PO HEARTBURN 11/20/20 15:40 Aspirin (Ecotrin) 81 mg DAILY PO 11/21/20 09:00 11/24/20 09:14 Docusate Sodium (Colace) 100 mg BID PO 11/20/20 21:00 11/24/20 09:15 Ferrous Gluconate (Fergon) 324 mg BID PO 11/24/20 09:00 11/24/20 13:08 Lisinopril (Prinivil) 5 mg DAILY PO 11/21/20 09:00 11/23/20 08:33 Multivitamins (Ocuvite(I-Laura)) 1 tab DAILY PO 11/21/20 09:00 11/24/20 09:14 Oxycodone HCl (Roxicodone, Oxyir) 2.5 mg Q4HP PRN PO MODERATE PAIN (PS 5-7) 11/20/20 15:40 11/23/20 13:20 DC 11/22/20 20:42 Pantoprazole Sodium (Protonix) 40 mg DAILY PO 11/21/20 09:00 11/24/20 09:15 Polyethylene Glycol (Miralax) 1 pkt DAILY PRN PO CONSTIPATION 11/20/20 15:40 Ramelteon (Rozerem) 8 mg QHS PO 11/20/20 21:00 11/23/20 21:54 Rosuvastatin Calcium (Crestor) 5 mg DAILY PO 11/21/20 09:00 11/24/20 09:15 Senna (Senokot) 1 tab QHS PO 11/20/20 21:00 11/23/20 21:55 Sertraline HCl (Zoloft) 50 mg DAILY PO 11/21/20 09:00 11/24/20 09:15 Tramadol HCl (Ultram) 50 mg Q4HP PRN PO MODERATE PAIN (PS 5-7) 11/23/20 13:20 11/24/20 13:09 TOMI MILLER MD Nov 24, 2020 13:24
[2020-11-24 14:00] VITALS: BP 123/64
[2020-11-24 20:00] VITALS: BP 98/54
[2020-11-24] MEDS: SENNA 8.6 MG TAB (SENOKOT) PO SCH (20:56)
[2020-11-24] MEDS: RAMELTEON 8 MG TAB (ROZEREM) PO SCH (20:57)
[2020-11-25 06:00] VITALS: BP 114/54
[2020-11-25 08:23] LABS: BASO # 0.1 10^3/uL (0.0-0.2); BASO % 0.8 % (0.0-1.0); EOS # 0.5 10^3/uL (0.0-0.5); EOS % 8.4 % (0.0-3.0); HEMATOCRIT 26.4 % (36.0-47.0); HEMOGLOBIN 8.3 g/dl (12.0-15.5); LYMPH # 1.4 10^3/uL (1.5-5.0); LYMPH % 21.8 % (24.0-44.0); MEAN CORPUSCULAR HEMOGLOBIN 29.1 pg (27.0-33.0); MEAN CORPUSCULAR HGB CONC 31.4 g/dl (32.0-36.5); MEAN CORPUSCULAR VOLUME 92.6 fl (80.0-96.0); MONO # 0.8 10^3/uL (0.0-0.8); MONO % 12.1 % (2.0-8.0); NEUTROPHILS # 3.5 10^3/uL (1.5-8.5); NEUTROPHILS % 55.9 % (36.0-66.0); PLATELET COUNT, AUTOMATED 272 10^3/uL (150-450); RED BLOOD COUNT 2.85 10^6/uL (4.00-5.40); WHITE BLOOD COUNT 6.2 10^3/uL (4.0-10.0)
[2020-11-25] MEDS: REMEDY PHYTOPLEX Z-GUARD PASTE 113GM TUBE (FROM STOREROOM PRODUCT) TOP SCH ×3 (09:00→21:00)
[2020-11-25] MEDS: FERROUS GLUCONATE 324 MG TAB PO SCH ×2 (09:42→21:47)
[2020-11-25] MEDS: ROSUVASTATIN 10 MG TAB (CRESTOR) PO SCH (09:42)
[2020-11-25] MEDS: OCUVITE 1 TAB PO SCH (09:42)
[2020-11-25] MEDS: DOCUSATE SODIUM 100MG CAPSULE PO SCH ×2 (09:42→21:47)
[2020-11-25] MEDS: ACETAMINOPHEN 500 MG TAB PO SCH ×3 (09:42→21:46)
[2020-11-25] MEDS: PANTOPRAZOLE 40MG TAB (PROTONIX) PO SCH (09:42)
[2020-11-25] MEDS: lisinopriL 5 MG TAB PO SCH (09:42)
[2020-11-25] MEDS: ASPIRIN 81MG ENTERIC TABLET PO SCH (09:42)
[2020-11-25] MEDS: SERTRALINE HCL 50 MG TAB PO SCH (09:42)
[2020-11-25 14:00] VITALS: BP 121/56
[2020-11-25] MEDS: traMADol 50 MG TAB PO PRN (14:46)
[2020-11-25 20:00] VITALS: BP 107/50
[2020-11-25] MEDS: RAMELTEON 8 MG TAB (ROZEREM) PO SCH (21:47)
[2020-11-25] MEDS: SENNA 8.6 MG TAB (SENOKOT) PO SCH (21:47)
[2020-11-26] MEDS: traMADol 50 MG TAB PO PRN ×4 (05:18→21:26)
[2020-11-26 06:00] VITALS: BP 141/63
[2020-11-26] MEDS: FERROUS GLUCONATE 324 MG TAB PO SCH ×2 (08:22→21:25)
[2020-11-26] MEDS: OCUVITE 1 TAB PO SCH (08:22)
[2020-11-26] MEDS: DOCUSATE SODIUM 100MG CAPSULE PO SCH ×2 (08:22→21:00)
[2020-11-26] MEDS: lisinopriL 5 MG TAB PO SCH (08:22)
[2020-11-26] MEDS: SERTRALINE HCL 50 MG TAB PO SCH (08:23)
[2020-11-26] MEDS: ASPIRIN 81MG ENTERIC TABLET PO SCH (08:23)
[2020-11-26] MEDS: ACETAMINOPHEN 500 MG TAB PO SCH ×3 (08:23→21:26)
[2020-11-26] MEDS: PANTOPRAZOLE 40MG TAB (PROTONIX) PO SCH (08:23)
[2020-11-26] MEDS: ROSUVASTATIN 10 MG TAB (CRESTOR) PO SCH (08:23)
[2020-11-26] MEDS: REMEDY PHYTOPLEX Z-GUARD PASTE 113GM TUBE (FROM STOREROOM PRODUCT) TOP SCH ×3 (08:25→21:00)
[2020-11-26 14:00] VITALS: BP 100/63
[2020-11-26 20:00] VITALS: BP 117/55
[2020-11-26] MEDS: SENNA 8.6 MG TAB (SENOKOT) PO SCH (21:00)
[2020-11-26] MEDS: RAMELTEON 8 MG TAB (ROZEREM) PO SCH (21:25)
[2020-11-27 05:59] LABS: BASO # 0.1 10^3/uL (0.0-0.2); BASO % 0.8 % (0.0-1.0); EOS # 0.5 10^3/uL (0.0-0.5); EOS % 6.7 % (0.0-3.0); HEMATOCRIT 26.1 % (36.0-47.0); HEMOGLOBIN 8.1 g/dl (12.0-15.5); LYMPH # 1.3 10^3/uL (1.5-5.0); LYMPH % 17.6 % (24.0-44.0); MEAN CORPUSCULAR HEMOGLOBIN 28.9 pg (27.0-33.0); MEAN CORPUSCULAR VOLUME 93.2 fl (80.0-96.0); MONO # 0.9 10^3/uL (0.0-0.8); MONO % 12.6 % (2.0-8.0); NEUTROPHILS # 4.5 10^3/uL (1.5-8.5); NEUTROPHILS % 61.3 % (36.0-66.0); PLATELET COUNT, AUTOMATED 294 10^3/uL (150-450); WHITE BLOOD COUNT 7.3 10^3/uL (4.0-10.0)
[2020-11-27 06:00] VITALS: BP 138/66
[2020-11-27 06:26] LABS: CALCIUM LEVEL 8.5 MG/DL (8.8-10.2); CREATININE FOR GFR 1.44 MG/DL (0.55-1.30); GLOMERULAR FILTRATION RATE 37.2 (>32); POTASSIUM SERUM 5.1 MEQ/L (3.5-5.1)
[2020-11-27] MEDS: lisinopriL 5 MG TAB PO SCH (08:21)
[2020-11-27] MEDS: PANTOPRAZOLE 40MG TAB (PROTONIX) PO SCH (08:22)
[2020-11-27] MEDS: traMADol 50 MG TAB PO PRN (08:22)
[2020-11-27] MEDS: ACETAMINOPHEN 500 MG TAB PO SCH ×3 (08:22→21:48)
[2020-11-27] MEDS: ROSUVASTATIN 10 MG TAB (CRESTOR) PO SCH (08:23)
[2020-11-27] MEDS: DOCUSATE SODIUM 100MG CAPSULE PO SCH ×2 (08:24→21:00)
[2020-11-27] MEDS: REMEDY PHYTOPLEX Z-GUARD PASTE 113GM TUBE (FROM STOREROOM PRODUCT) TOP SCH ×3 (08:24→21:00)
[2020-11-27] MEDS: OCUVITE 1 TAB PO SCH (08:24)
[2020-11-27] MEDS: ASPIRIN 81MG ENTERIC TABLET PO SCH (08:24)
[2020-11-27] MEDS: SERTRALINE HCL 50 MG TAB PO SCH (08:24)
[2020-11-27] MEDS: FERROUS GLUCONATE 324 MG TAB PO SCH ×2 (08:24→21:47)
[2020-11-27] MEDS: GABAPENTIN 100 MG CAP PO SCH ×3 (09:00→21:47)
--- NOTE | 2020-11-27 09:35 | IPNPDOC ---
PM&R Progress Note DATE OF SERVICE: Nov 27, 2020 Rehab Liaison Progress Note Subjective: Patient stating that she does not think the tramadol is helping her pain and thinks she should go back on oxycodone. REVIEW OF SYSTEMS: The following is a completed review of systems and has been reviewed. Review of systems otherwise unremarkable. PAIN: Patient self reports left hip pain EYES: No recent vision changes EARS, NOSE, & THROAT: No throat pain, or dysphagia, or rhinorrhea CARDIOVASCULAR: Denies chest pain or palpitation. PULMONARY: Denies shortness of breath, mild cough (chronic) GASTROINTESTINAL: Denies constipation/diarrhea GENITOURINARY: denies dysuria MUSCULOSKELETAL: s/p left hip ORIF NEUROLOGICAL:denies paresthesias HEMATOLOGICAL: +anemia SKIN: left hip incision PSYCHIATRIC: Unremarkable All other review of systems found to be negative. PHYSICAL EXAMINATION: VITAL SIGNS: Please see below. GENERAL: Pleasant and cooperative. No acute distress. HEENT: PERRL. Extraocular movements intact. Clear conjunctiva CARDIOVASCULAR: Regular rate and rhythm. No murmurs, rubs, or gallops LUNGS: Clear to auscultation bilaterally. No wheezes. No rhonchi ABDOMEN: Soft, nontender, nondistended. Positive bowel sounds. Normal active bowel sounds NEUROLOGICAL: Alert and oriented times three. Cranial nerves II through XII grossly intact. Sensation grossly intact including first web space on left foot EXTREMITIES:5\5 strength bilateral upper extremities. 5\5 strength right lower extremity. 5/5 strength in left ankle DF/PF/EHL (limited exam due to surgery) SKIN: peggy-incisional site c/d/i no ecchymosis ASSESSMENT:80-year-old F with past medical history of HTN, HLD, depression who presents status post fall with left hip fracture and ORIF PLAN: 1.Rehab- PT/OT advance mobility and ADLs, strengthen/stretch/maintain ROM all 4 limbs, ambulating with RW 2. Ortho s/p left hip ORIF cont WBAT, questionable left greater trochanter f racture on recent hip Xray, ortho reviewed, no surgical intervention -f/u ortho as outpatient 3. Cardiac- hx of HTN cont BP meds -HLD cont statin -medicine consulted to assist in overall management 4. Resp- patient appears to have COPD, she is declining breathing treatments, will cont to monitor 5. DVT ppx- ASA 81 daily and TEDs 6. GI ppx- protonix 7. Pain- tylenol, switched to tramadol per patient request, however patient has regressed due to pain, will cgange back to oxycodone 2.5mg q4h prn and add low dos gabapentin 8. Psych- zoloft for depression 9. Heme- patient with post-op anemia, Hgb improving, patient declining rbc transfusion, cont iron -FOBT ordered 10. Dispo- 12-01-20 to home, progressing towards goals Allergies Coded Allergies: codeine (Verified Allergy, Intermediate, RASH, CONFUSION, 09/30/18) Vital Signs Vital Signs Date Time Temp Pulse Resp B/P (MAP) Pulse Ox O2 Delivery O2 Flow Rate FiO2 11/27/20 08:22 18 Room Air 11/27/20 08:21 138/66 11/27/20 06:00 98.0 72 97 Laboratory Data CBC/BMP Laboratory Tests 11/27/20 05:21 Labs 24H Laboratory Tests 2 11/27/20 05:21: Immature Granulocyte % (Auto) 1.0, Neutrophils (%) (Auto) 61.3, Lymphocytes (%) (Auto) 17.6L, Monocytes (%) (Auto) 12.6H, Eosinophils (%) (Auto) 6.7H, Basophils (%) (Auto) 0.8, Neutrophils # (Auto) 4.5, Lymphocytes # (Auto) 1.3L, Monocytes # (Auto) 0.9H, Eosinophils # (Auto) 0.5, Basophils # (Auto) 0.1, Nucleated Red Blood Cells % (auto) 0.0, Anion Gap 2L, Glomerular Filtration Rate 37.2, Calcium Level 8.5L Current Medications Current Medications Current Medications Medications (Trade) Dose Ordered Sig/Golden Route PRN Reason Start Time Stop Time Status Last Admin Dose Admin Acetaminophen (Tylenol Tab) 1,000 mg TID PO 11/20/20 16:00 11/27/20 08:22 Al Hydrox/Mg Hydrox/Simethicone (Mylanta) 30 ml Q6HP PRN PO HEARTBURN 11/20/20 15:40 Aspirin (Ecotrin) 81 mg DAILY PO 11/21/20 09:00 11/27/20 08:24 Docusate Sodium (Colace) 100 mg BID PO 11/20/20 21:00 11/26/20 08:22 Ferrous Gluconate (Fergon) 324 mg BID PO 11/24/20 09:00 11/27/20 08:24 Lisinopril (Prinivil) 5 mg DAILY PO 11/21/20 09:00 11/27/20 08:21 Multivitamins (Ocuvite(I-Laura)) 1 tab DAILY PO 11/21/20 09:00 11/27/20 08:24 Oxycodone HCl (Roxicodone, Oxyir) 2.5 mg Q4HP PRN PO MODERATE PAIN (PS 5-7) 11/20/20 15:40 11/23/20 13:20 DC 11/22/20 20:42 Pantoprazole Sodium (Protonix) 40 mg DAILY PO 11/21/20 09:00 11/27/20 08:22 Polyethylene Glycol (Miralax) 1 pkt DAILY PRN PO CONSTIPATION 11/20/20 15:40 Ramelteon (Rozerem) 8 mg QHS PO 11/20/20 21:00 11/26/20 21:25 Rosuvastatin Calcium (Crestor) 5 mg DAILY PO 11/21/20 09:00 11/27/20 08:23 Senna (Senokot) 1 tab QHS PO 11/20/20 21:00 11/25/20 21:47 Sertraline HCl (Zoloft) 50 mg DAILY PO 11/21/20 09:00 11/27/20 08:24 Tramadol HCl (Ultram) 50 mg Q4HP PRN PO MODERATE PAIN (PS 5-7) 11/23/20 13:20 11/27/20 08:22 TOMI MILLER MD Nov 27, 2020 09:35
[2020-11-27] MEDS ORDERED: traMADol 50 MG TAB PO PRN (11:20)
[2020-11-27] MEDS ORDERED: oxyCODONE 5MG TAB PO ONE (11:25)
[2020-11-27] MEDS ORDERED: HOME MED LIST COMPLETE! XX SCH (11:30)
[2020-11-27 14:00] VITALS: BP 138/66
[2020-11-27] MEDS: oxyCODONE 5MG TAB PO PRN ×2 (16:48→21:49)
[2020-11-27 21:00] VITALS: BP 130/58
[2020-11-27] MEDS: SENNA 8.6 MG TAB (SENOKOT) PO SCH (21:00)
[2020-11-27] MEDS: RAMELTEON 8 MG TAB (ROZEREM) PO SCH (21:47)
[2020-11-28 05:54] VITALS: BP 178/79
[2020-11-28 06:50] VITALS: BP 156/76
[2020-11-28] MEDS: ASPIRIN 81MG ENTERIC TABLET PO SCH (08:19)
[2020-11-28] MEDS: FERROUS GLUCONATE 324 MG TAB PO SCH ×2 (08:19→20:05)
[2020-11-28] MEDS: ROSUVASTATIN 10 MG TAB (CRESTOR) PO SCH (08:19)
[2020-11-28] MEDS: OCUVITE 1 TAB PO SCH (08:19)
[2020-11-28] MEDS: PANTOPRAZOLE 40MG TAB (PROTONIX) PO SCH (08:19)
[2020-11-28] MEDS: GABAPENTIN 100 MG CAP PO SCH ×2 (08:20→20:04)
[2020-11-28] MEDS: DOCUSATE SODIUM 100MG CAPSULE PO SCH ×2 (08:20→20:04)
[2020-11-28] MEDS: lisinopriL 5 MG TAB PO SCH (08:20)
[2020-11-28] MEDS: SERTRALINE HCL 50 MG TAB PO SCH (08:20)
[2020-11-28] MEDS: ACETAMINOPHEN 500 MG TAB PO SCH ×3 (08:21→20:05)
[2020-11-28] MEDS: oxyCODONE 5MG TAB PO PRN ×2 (08:22→13:39)
[2020-11-28] MEDS: REMEDY PHYTOPLEX Z-GUARD PASTE 113GM TUBE (FROM STOREROOM PRODUCT) TOP SCH ×3 (08:24→20:05)
--- NOTE | 2020-11-28 09:37 | IPNPDOC ---
PM&R Progress Note DATE OF SERVICE: Nov 28, 2020 Chief Business Officer Progress Note Subjective: Patient stating that her pain regimen today is working, but per PT had a loss of balance. REVIEW OF SYSTEMS: The following is a completed review of systems and has been reviewed. Review of systems otherwise unremarkable. PAIN: Patient self reports left hip pain EYES: No recent vision changes EARS, NOSE, & THROAT: No throat pain, or dysphagia, or rhinorrhea CARDIOVASCULAR: Denies chest pain or palpitation. PULMONARY: Denies shortness of breath GASTROINTESTINAL: Denies constipation/diarrhea GENITOURINARY: denies dysuria MUSCULOSKELETAL: s/p left hip ORIF NEUROLOGICAL:denies paresthesias HEMATOLOGICAL: +anemia SKIN: left hip incision PSYCHIATRIC: Unremarkable All other review of systems found to be negative. PHYSICAL EXAMINATION: VITAL SIGNS: Please see below. GENERAL: Pleasant and cooperative. No acute distress. HEENT: PERRL. Extraocular movements intact. Clear conjunctiva CARDIOVASCULAR: Regular rate and rhythm. No murmurs, rubs, or gallops LUNGS: Clear to auscultation bilaterally. No wheezes. No rhonchi ABDOMEN: Soft, nontender, nondistended. Positive bowel sounds. Normal active bowel sounds NEUROLOGICAL: Alert and oriented times three. Cranial nerves II through XII grossly intact. Sensation grossly intact including first web space on left foot EXTREMITIES:5\5 strength bilateral upper extremities. 5\5 strength right lower extremity. 5/5 strength in left ankle DF/PF/EHL (limited exam due to surgery) SKIN: peggy-incisional site c/d/i no ecchymosis ASSESSMENT:80-year-old F with past medical history of HTN, HLD, depression who presents status post fall with left hip fracture and ORIF PLAN: 1.Rehab- PT/OT advance mobility and ADLs, strengthen/stretch/maintain ROM all 4 limbs, ambulating with RW 2. Ortho s/p left hip ORIF cont WBAT, questionable left greater trochanter fracture on recent hip Xray, ortho reviewed, no surgical intervention -f/u ortho as outpatient 3. Cardiac- hx of HTN cont BP meds -HLD cont statin -medicine consulted to assist in overall management 4. Resp- patient appears to have COPD, she is declining breathing treatments, will cont to monitor 5. DVT ppx- ASA 81 daily and TEDs 6. GI ppx- protonix 7. Pain- tylenol, cont oxycodone 2.5mg q4h prn and low dose gabapentin 8. Psych- zoloft for depression 9. Heme- patient with post-op anemia, Hgb improving, patient declining rbc transfusion, cont iron -FOBT ordered 10. Dispo- patient will need more time to progress to Mod-I while her pain is managed Allergies Coded Allergies: codeine (Verified Allergy, Intermediate, RASH, CONFUSION, 09/30/18) Vital Signs Vital Signs Date Time Temp Pulse Resp B/P (MAP) Pulse Ox O2 Delivery O2 Flow Rate FiO2 11/28/20 08:22 16 11/28/20 08:20 124/58 11/28/20 05:54 97.7 95 97 Room Air Current Medications Current Medications Current Medications Medications (Trade) Dose Ordered Sig/Golden Route PRN Reason Start Time Stop Time Status Last Admin Dose Admin Acetaminophen (Tylenol Tab) 1,000 mg TID PO 11/20/20 16:00 11/28/20 08:21 Al Hydrox/Mg Hydrox/Simethicone (Mylanta) 30 ml Q6HP PRN PO HEARTBURN 11/20/20 15:40 Aspirin (Ecotrin) 81 mg DAILY PO 11/21/20 09:00 11/28/20 08:19 Docusate Sodium (Colace) 100 mg BID PO 11/20/20 21:00 11/28/20 08:20 Ferrous Gluconate (Fergon) 324 mg BID PO 11/24/20 09:00 11/28/20 08:19 Gabapentin (Neurontin) 100 mg BID PO 11/28/20 21:00 UNV Gabapentin (Neurontin) 100 mg TID PO 11/27/20 09:00 11/28/20 09:36 DC 11/28/20 08:20 Home Med (Home Med List Complete!) ASDIRECTED XX 11/27/20 11:30 11/27/20 11:39 DC Lisinopril (Prinivil) 5 mg DAILY PO 11/21/20 09:00 11/28/20 09:36 DC 11/28/20 08:20 Metoprolol Tartrate (Lopressor) 25 mg BID PO 11/28/20 09:35 UNV Multivitamins (Ocuvite(I-Laura)) 1 tab DAILY PO 11/21/20 09:00 11/28/20 08:19 Oxycodone HCl (Roxicodone, Oxyir) 2.5 mg Q4HP PRN PO MODERATE PAIN (PS 5-7) 11/20/20 15:40 11/23/20 13:20 DC 11/22/20 20:42 Oxycodone HCl (Roxicodone, Oxyir) 2.5 mg Q4HP PRN PO MODERATE PAIN (PS 5-7) 11/27/20 11:25 11/28/20 08:22 Pantoprazole Sodium (Protonix) 40 mg DAILY PO 11/21/20 09:00 11/28/20 08:19 Polyethylene Glycol (Miralax) 1 pkt DAILY PRN PO CONSTIPATION 11/20/20 15:40 Ramelteon (Rozerem) 8 mg QHS PO 11/20/20 21:00 11/27/20 21:47 Rosuvastatin Calcium (Crestor) 5 mg DAILY PO 11/21/20 09:00 11/28/20 08:19 Senna (Senokot) 1 tab QHS PO 11/20/20 21:00 11/25/20 21:47 Sertraline HCl (Zoloft) 50 mg DAILY PO 11/21/20 09:00 11/28/20 08:20 Tramadol HCl (Ultram) 50 mg Q4HP PRN PO MODERATE PAIN (PS 5-7) 11/23/20 13:20 11/27/20 11:21 DC 11/27/20 08:22 Tramadol HCl (Ultram) 75 mg Q4HP PRN PO MODERATE PAIN (PS 5-7) 11/27/20 11:20 11/27/20 11:23 TOMI COYNE MD Nov 28, 2020 09:37
[2020-11-28] MEDS: METOPROLOL TART 25 MG TABLET PO SCH ×2 (10:48→20:06)
[2020-11-28 14:00] VITALS: BP 104/51
[2020-11-28 20:00] VITALS: BP 128/61
[2020-11-28] MEDS: RAMELTEON 8 MG TAB (ROZEREM) PO SCH (20:05)
[2020-11-28] MEDS: SENNA 8.6 MG TAB (SENOKOT) PO SCH (20:05)
[2020-11-29] MEDS: oxyCODONE 5MG TAB PO PRN ×3 (04:24→20:25)
[2020-11-29 06:00] VITALS: BP 133/62
[2020-11-29 06:33] LABS: BASO # 0.1 10^3/uL (0.0-0.2); BASO % 0.6 % (0.0-1.0); EOS # 0.5 10^3/uL (0.0-0.5); EOS % 5.3 % (0.0-3.0); HEMOGLOBIN 8.5 g/dl (12.0-15.5); LYMPH # 1.2 10^3/uL (1.5-5.0); LYMPH % 12.7 % (24.0-44.0); MEAN CORPUSCULAR HEMOGLOBIN 29.5 pg (27.0-33.0); MEAN CORPUSCULAR HGB CONC 31.5 g/dl (32.0-36.5); MEAN CORPUSCULAR VOLUME 93.8 fl (80.0-96.0); MONO % 10.7 % (2.0-8.0); NEUTROPHILS # 6.8 10^3/uL (1.5-8.5); NEUTROPHILS % 69.7 % (36.0-66.0); PLATELET COUNT, AUTOMATED 353 10^3/uL (150-450); RED BLOOD COUNT 2.88 10^6/uL (4.00-5.40); WHITE BLOOD COUNT 9.7 10^3/uL (4.0-10.0)
[2020-11-29 07:35] LABS: CALCIUM LEVEL 9.1 MG/DL (8.8-10.2); CREATININE FOR GFR 1.36 MG/DL (0.55-1.30); GLOMERULAR FILTRATION RATE 39.7 (>32); POTASSIUM SERUM 5.2 MEQ/L (3.5-5.1)
[2020-11-29] MEDS: OCUVITE 1 TAB PO SCH (08:32)
[2020-11-29] MEDS: GABAPENTIN 100 MG CAP PO SCH (08:33)
[2020-11-29] MEDS: ACETAMINOPHEN 500 MG TAB PO SCH ×3 (08:33→20:24)
[2020-11-29] MEDS: FERROUS GLUCONATE 324 MG TAB PO SCH ×2 (08:33→20:23)
[2020-11-29] MEDS: ASPIRIN 81MG ENTERIC TABLET PO SCH (08:33)
[2020-11-29] MEDS: PANTOPRAZOLE 40MG TAB (PROTONIX) PO SCH (08:33)
[2020-11-29] MEDS: ROSUVASTATIN 10 MG TAB (CRESTOR) PO SCH (08:33)
[2020-11-29] MEDS: REMEDY PHYTOPLEX Z-GUARD PASTE 113GM TUBE (FROM STOREROOM PRODUCT) TOP SCH ×3 (08:34→20:25)
[2020-11-29] MEDS: METOPROLOL TART 25 MG TABLET PO SCH ×2 (08:34→20:23)
[2020-11-29] MEDS: DOCUSATE SODIUM 100MG CAPSULE PO SCH ×2 (08:34→20:22)
[2020-11-29] MEDS: SERTRALINE HCL 50 MG TAB PO SCH (08:34)
--- NOTE | 2020-11-29 09:32 | IPNPDOC ---
PM&R Progress Note DATE OF SERVICE: Nov 29, 2020 Track Repairer Helper Progress Note Subjective: Patient reporting she thinks the gabapentin is making her a little out of it and would prefer to just stay with the low dose oxycodone. REVIEW OF SYSTEMS: The following is a completed review of systems and has been reviewed. Review of systems otherwise unremarkable. PAIN: Patient self reports left hip pain EYES: No recent vision changes EARS, NOSE, & THROAT: No throat pain, or dysphagia, or rhinorrhea CARDIOVASCULAR: Denies chest pain or palpitation. PULMONARY: Denies shortness of breath GASTROINTESTINAL: Denies constipation/diarrhea GENITOURINARY: denies dysuria MUSCULOSKELETAL: s/p left hip ORIF NEUROLOGICAL:denies paresthesias HEMATOLOGICAL: +anemia SKIN: left hip incision PSYCHIATRIC: Unremarkable All other review of systems found to be negative. PHYSICAL EXAMINATION: VITAL SIGNS: Please see below. GENERAL: Pleasant and cooperative. No acute distress. HEENT: PERRL. Extraocular movements intact. Clear conjunctiva CARDIOVASCULAR: Regular rate and rhythm. No murmurs, rubs, or gallops LUNGS: Clear to auscultation bilaterally. No wheezes. No rhonchi ABDOMEN: Soft, nontender, nondistended. Positive bowel sounds. Normal active bowel sounds NEUROLOGICAL: Alert and oriented times three. Cranial nerves II through XII grossly intact. Sensation grossly intact including first web space on left foot EXTREMITIES:5\5 strength bilateral upper extremities. 5\5 strength right lower extremity. 5/5 strength in left ankle DF/PF/EHL (limited exam due to surgery) SKIN: peggy-incisional site c/d/i no ecchymosis ASSESSMENT:80-year-old F with past medical history of HTN, HLD, depression who presents status post fall with left hip fracture and ORIF PLAN: 1.Rehab- PT/OT advance mobility and ADLs, strengthen/stretch/maintain ROM all 4 limbs, ambulating further with RW 2. Ortho s/p left hip ORIF cont WBAT, questionable left greater trochanter fracture on recent hip Xray, ortho reviewed, no surgical intervention -f/u ortho as outpatient 3. Cardiac- hx of HTN cont BP meds -HLD cont statin -medicine consulted to assist in overall management 4. Resp- patient appears to have COPD, she is declining breathing treatments, will cont to monitor 5. DVT ppx- ASA 81 daily and TEDs 6. GI ppx- protonix 7. Pain- tylenol, cont oxycodone 2.5mg q4h prn, stopping gabapentin as may be causing patient to lose balance 8. Psych- zoloft for depression 9. Heme- patient with post-op anemia, Hgb improving, patient declining rbc transfusion, cont iron -FOBT ordered 10. Dispo- 12-05-20 to home, progressing toward goals Allergies Coded Allergies: codeine (Verified Allergy, Intermediate, RASH, CONFUSION, 09/30/18) Vital Signs Vital Signs Date Time Temp Pulse Resp B/P (MAP) Pulse Ox O2 Delivery O2 Flow Rate FiO2 11/29/20 08:34 67 138/73 11/29/20 08:34 18 11/29/20 06:00 98.3 98 Room Air Laboratory Data CBC/BMP Laboratory Tests 11/29/20 05:31 11/29/20 05:32 Labs 24H Laboratory Tests 2 11/29/20 05:31: Immature Granulocyte % (Auto) 1.0, Neutrophils (%) (Auto) 69.7H, Lymphocytes (%) (Auto) 12.7L, Monocytes (%) (Auto) 10.7H, Eosinophils (%) (Auto) 5.3H, Basophils (%) (Auto) 0.6, Neutrophils # (Auto) 6.8, Lymphocytes # (Auto) 1.2L, Monocytes # (Auto) 1.0H, Eosinophils # (Auto) 0.5, Basophils # (Auto) 0.1, Nucleated Red Blood Cells % (auto) 0.0 11/29/20 05:32: Anion Gap 3L, Glomerular Filtration Rate 39.7, Calcium Level 9.1 Current Medications Current Medications Current Medications Medications (Trade) Dose Ordered Sig/Golden Route PRN Reason Start Time Stop Time Status Last Admin Dose Admin Acetaminophen (Tylenol Tab) 1,000 mg TID PO 11/20/20 16:00 11/29/20 08:33 Al Hydrox/Mg Hydrox/Simethicone (Mylanta) 30 ml Q6HP PRN PO HEARTBURN 11/20/20 15:40 Aspirin (Ecotrin) 81 mg DAILY PO 11/21/20 09:00 11/29/20 08:33 Docusate Sodium (Colace) 100 mg BID PO 11/20/20 21:00 11/28/20 20:04 Ferrous Gluconate (Fergon) 324 mg BID PO 11/24/20 09:00 11/29/20 08:33 Gabapentin (Neurontin) 100 mg BID PO 11/28/20 21:00 11/29/20 08:33 Gabapentin (Neurontin) 100 mg TID PO 11/27/20 09:00 11/28/20 09:36 DC 11/28/20 08:20 Home Med (Home Med List Complete!) ASDIRECTED XX 11/27/20 11:30 11/27/20 11:39 DC Lisinopril (Prinivil) 5 mg DAILY PO 11/21/20 09:00 11/28/20 09:36 DC 11/28/20 08:20 Metoprolol Tartrate (Lopressor) 25 mg BID PO 11/28/20 09:00 11/29/20 08:34 Multivitamins (Ocuvite(I-Laura)) 1 tab DAILY PO 11/21/20 09:00 11/29/20 08:32 Oxycodone HCl (Roxicodone, Oxyir) 2.5 mg Q4HP PRN PO MODERATE PAIN (PS 5-7) 11/20/20 15:40 11/23/20 13:20 DC 11/22/20 20:42 Oxycodone HCl (Roxicodone, Oxyir) 2.5 mg Q4HP PRN PO MODERATE PAIN (PS 5-7) 11/27/20 11:25 11/29/20 08:34 Pantoprazole Sodium (Protonix) 40 mg DAILY PO 11/21/20 09:00 11/29/20 08:33 Polyethylene Glycol (Miralax) 1 pkt DAILY PRN PO CONSTIPATION 11/20/20 15:40 Ramelteon (Rozerem) 8 mg QHS PO 11/20/20 21:00 11/28/20 20:05 Rosuvastatin Calcium (Crestor) 5 mg DAILY PO 11/21/20 09:00 11/29/20 08:33 Senna (Senokot) 1 tab QHS PO 11/20/20 21:00 11/28/20 20:05 Sertraline HCl (Zoloft) 50 mg DAILY PO 11/21/20 09:00 11/29/20 08:34 Tramadol HCl (Ultram) 50 mg Q4HP PRN PO MODERATE PAIN (PS 5-7) 11/23/20 13:20 11/27/20 11:21 DC 11/27/20 08:22 Tramadol HCl (Ultram) 75 mg Q4HP PRN PO MODERATE PAIN (PS 5-7) 11/27/20 11:20 11/27/20 11:23 TOMI COYNE MD Nov 29, 2020 09:32
[2020-11-29] MEDS ORDERED: PATIROMER SORBITEX CALCIUM 8.4 GM POWDER PACKET (VELTASSA) PO ONE (12:00)
[2020-11-29 14:00] VITALS: BP 111/59
[2020-11-29 20:00] VITALS: BP 107/55
[2020-11-29] MEDS: RAMELTEON 8 MG TAB (ROZEREM) PO SCH (20:22)
[2020-11-29] MEDS: SENNA 8.6 MG TAB (SENOKOT) PO SCH (20:22)
[2020-11-30 05:43] VITALS: BP 152/70
[2020-11-30] MEDS: REMEDY PHYTOPLEX Z-GUARD PASTE 113GM TUBE (FROM STOREROOM PRODUCT) TOP SCH ×3 (09:00→21:00)
[2020-11-30] MEDS: DOCUSATE SODIUM 100MG CAPSULE PO SCH ×3 (09:20→21:33)
[2020-11-30] MEDS: ASPIRIN 81MG ENTERIC TABLET PO SCH (09:20)
[2020-11-30] MEDS: FERROUS GLUCONATE 324 MG TAB PO SCH ×2 (09:20→21:35)
[2020-11-30] MEDS: OCUVITE 1 TAB PO SCH (09:20)
[2020-11-30] MEDS: METOPROLOL TART 25 MG TABLET PO SCH ×3 (09:21→21:34)
[2020-11-30] MEDS: ACETAMINOPHEN 500 MG TAB PO SCH ×3 (09:21→21:35)
[2020-11-30] MEDS: PANTOPRAZOLE 40MG TAB (PROTONIX) PO SCH (09:21)
[2020-11-30] MEDS: SERTRALINE HCL 50 MG TAB PO SCH (09:21)
[2020-11-30] MEDS: ROSUVASTATIN 10 MG TAB (CRESTOR) PO SCH (09:21)
[2020-11-30 09:40] LABS: CALCIUM LEVEL 9.1 MG/DL (8.8-10.2); CREATININE FOR GFR 1.44 MG/DL (0.55-1.30); GLOMERULAR FILTRATION RATE 37.2 (>32); POTASSIUM SERUM 4.5 MEQ/L (3.5-5.1)
[2020-11-30 14:00] VITALS: BP 100/50
[2020-11-30 20:00] VITALS: BP 107/55
[2020-11-30] MEDS: SENNA 8.6 MG TAB (SENOKOT) PO SCH (21:00)
[2020-11-30] MEDS: RAMELTEON 8 MG TAB (ROZEREM) PO SCH (21:34)
[2020-11-30] MEDS: oxyCODONE 5MG TAB PO PRN (21:34)
[2020-12-01 06:00] VITALS: BP 124/59
[2020-12-01 06:51] LABS: BASO # 0.1 10^3/uL (0.0-0.2); BASO % 1.1 % (0.0-1.0); EOS # 0.5 10^3/uL (0.0-0.5); EOS % 6.4 % (0.0-3.0); HEMATOCRIT 28.8 % (36.0-47.0); HEMOGLOBIN 8.9 g/dl (12.0-15.5); LYMPH # 1.2 10^3/uL (1.5-5.0); LYMPH % 17.1 % (24.0-44.0); MEAN CORPUSCULAR HGB CONC 30.9 g/dl (32.0-36.5); MEAN CORPUSCULAR VOLUME 93.8 fl (80.0-96.0); MONO # 0.7 10^3/uL (0.0-0.8); MONO % 9.8 % (2.0-8.0); NEUTROPHILS # 4.7 10^3/uL (1.5-8.5); NEUTROPHILS % 64.8 % (36.0-66.0); PLATELET COUNT, AUTOMATED 357 10^3/uL (150-450); RED BLOOD COUNT 3.07 10^6/uL (4.00-5.40); WHITE BLOOD COUNT 7.2 10^3/uL (4.0-10.0)
[2020-12-01 07:17] LABS: CALCIUM LEVEL 8.7 MG/DL (8.8-10.2); CREATININE FOR GFR 1.44 MG/DL (0.55-1.30); GLOMERULAR FILTRATION RATE 37.2 (>32); POTASSIUM SERUM 4.7 MEQ/L (3.5-5.1)
[2020-12-01] MEDS: SERTRALINE HCL 50 MG TAB PO SCH (08:21)
[2020-12-01] MEDS: ASPIRIN 81MG ENTERIC TABLET PO SCH (08:21)
[2020-12-01] MEDS: FERROUS GLUCONATE 324 MG TAB PO SCH ×2 (08:21→21:06)
[2020-12-01] MEDS: PANTOPRAZOLE 40MG TAB (PROTONIX) PO SCH (08:22)
[2020-12-01] MEDS: METOPROLOL TART 25 MG TABLET PO SCH ×2 (08:22→21:00)
[2020-12-01] MEDS: ROSUVASTATIN 10 MG TAB (CRESTOR) PO SCH (08:22)
[2020-12-01] MEDS: ACETAMINOPHEN 500 MG TAB PO SCH ×3 (08:23→21:06)
[2020-12-01] MEDS: REMEDY PHYTOPLEX Z-GUARD PASTE 113GM TUBE (FROM STOREROOM PRODUCT) TOP SCH ×3 (08:25→21:00)
[2020-12-01] MEDS: DOCUSATE SODIUM 100MG CAPSULE PO SCH ×2 (08:25→21:00)
[2020-12-01] MEDS: OCUVITE 1 TAB PO SCH (08:27)
[2020-12-01] MEDS: oxyCODONE 5MG TAB PO PRN (10:04)
[2020-12-01 14:02] VITALS: BP 91/63
[2020-12-01 20:00] VITALS: BP 97/52
[2020-12-01] MEDS: SENNA 8.6 MG TAB (SENOKOT) PO SCH (21:00)
[2020-12-01] MEDS: RAMELTEON 8 MG TAB (ROZEREM) PO SCH (21:06)
[2020-12-02 06:00] VITALS: BP 135/63
[2020-12-02] MEDS: PANTOPRAZOLE 40MG TAB (PROTONIX) PO SCH (08:33)
[2020-12-02] MEDS: DOCUSATE SODIUM 100MG CAPSULE PO SCH ×2 (08:33→20:56)
[2020-12-02] MEDS: ASPIRIN 81MG ENTERIC TABLET PO SCH (08:33)
[2020-12-02] MEDS: SERTRALINE HCL 50 MG TAB PO SCH (08:33)
[2020-12-02] MEDS: OCUVITE 1 TAB PO SCH (08:33)
[2020-12-02] MEDS: FERROUS GLUCONATE 324 MG TAB PO SCH ×2 (08:34→20:57)
[2020-12-02] MEDS: ROSUVASTATIN 10 MG TAB (CRESTOR) PO SCH (08:34)
[2020-12-02] MEDS: ACETAMINOPHEN 500 MG TAB PO SCH ×3 (08:34→20:58)
[2020-12-02] MEDS: METOPROLOL TART 25 MG TABLET PO SCH ×2 (08:34→20:58)
[2020-12-02] MEDS: REMEDY PHYTOPLEX Z-GUARD PASTE 113GM TUBE (FROM STOREROOM PRODUCT) TOP SCH ×3 (08:35→20:58)
[2020-12-02 14:00] VITALS: BP 121/60
[2020-12-02 20:00] VITALS: BP 118/57
[2020-12-02] MEDS: SENNA 8.6 MG TAB (SENOKOT) PO SCH (20:56)
[2020-12-02] MEDS: RAMELTEON 8 MG TAB (ROZEREM) PO SCH (20:57)
[2020-12-03 06:00] VITALS: BP 158/82
[2020-12-03] MEDS: METOPROLOL TART 25 MG TABLET PO SCH ×2 (07:36→20:38)
[2020-12-03] MEDS: ROSUVASTATIN 10 MG TAB (CRESTOR) PO SCH (07:36)
[2020-12-03] MEDS: OCUVITE 1 TAB PO SCH (07:36)
[2020-12-03] MEDS: FERROUS GLUCONATE 324 MG TAB PO SCH ×2 (07:36→20:38)
[2020-12-03] MEDS: ASPIRIN 81MG ENTERIC TABLET PO SCH (07:36)
[2020-12-03] MEDS: DOCUSATE SODIUM 100MG CAPSULE PO SCH ×2 (07:37→20:37)
[2020-12-03] MEDS: SERTRALINE HCL 50 MG TAB PO SCH (07:37)
[2020-12-03] MEDS: PANTOPRAZOLE 40MG TAB (PROTONIX) PO SCH (07:37)
[2020-12-03] MEDS: REMEDY PHYTOPLEX Z-GUARD PASTE 113GM TUBE (FROM STOREROOM PRODUCT) TOP SCH ×3 (07:37→21:00)
[2020-12-03] MEDS: ACETAMINOPHEN 500 MG TAB PO SCH ×3 (07:37→20:38)
[2020-12-03] MEDS: oxyCODONE 5MG TAB PO PRN (12:38)
[2020-12-03 14:00] VITALS: BP 125/59
[2020-12-03 20:00] VITALS: BP 115/59
--- NOTE | 2020-12-03 20:33 | IPNPDOC ---
Subjective Date Seen The patient was seen on 12/03/20. Subjective Chief Complaint/HPI Mrs. Louis is an 80-year-old female with hypertension, heart disease, and depression who had a mechanical fall resulting in a left hip fracture and is now in the acute rehab unit. Patient was seen this morning. She denies any chest pain or shortness of breath. She is feeling well. She tells me that her physical therapy is also going well. Objective Physical Examination General Exam: Positive: Alert, Cooperative Eye Exam: Negative: Sclera icteric Neck Exam: Positive: Supple Chest Exam: Positive: Clear to auscultation Heart Exam: Positive: Rate Normal, Regular Rhythm Abdomen Exam: Positive: Normal bowel sounds, Soft; Negative: Tenderness Extremity Exam: Negative: Edema Neuro Exam: Positive: Normal Speech Psych Exam: Positive: Mental status NL, Mood NL Assessment /Plan Assessment Mrs. Louis is an 80-year-old female with hypertension, heart disease, and depression who had a mechanical fall resulting in a left hip fracture. Orthopedic surgery took patient to the OR on 11/19/2020 for left hip cephalomedullary nail. Patient was then discharged to ARU. Plan/VTE VTE Prophylaxis Ordered?: Yes (Aspirin and activity) Plan 1. Left hip fracture Repaired on 11/19/2020 PT and OT 2. Hypertension Lopressor 3. Hyperlipidemia Rosuvastatin 4. Depression Sertraline Disposition: Per ARU VS, I&O, 24H, Fishbone Vital Signs/I&O Vital Signs Date Time Temp Pulse Resp B/P (MAP) Pulse Ox O2 Delivery O2 Flow Rate FiO2 12/03/20 20:00 98.3 65 18 115/59 (77) 98 Room Air I&O- Last 24 Hours up to 6 AM 12/03/20 06:00 Intake Total 1110 ml Balance 1110 ml Laboratory Data Microbiology Microbiology 11/29/20 Stool Occult Blood (MOLLY) - Final, Complete MILLICENT RAMEY DO Dec 03, 2020 20:33
[2020-12-03] MEDS: SENNA 8.6 MG TAB (SENOKOT) PO SCH (20:37)
[2020-12-03] MEDS: RAMELTEON 8 MG TAB (ROZEREM) PO SCH (20:37)
[2020-12-04 06:00] VITALS: BP 148/78
[2020-12-04] MEDS: PANTOPRAZOLE 40MG TAB (PROTONIX) PO SCH (08:31)
[2020-12-04] MEDS: ROSUVASTATIN 10 MG TAB (CRESTOR) PO SCH (08:31)
[2020-12-04] MEDS: FERROUS GLUCONATE 324 MG TAB PO SCH ×2 (08:31→20:44)
[2020-12-04] MEDS: ACETAMINOPHEN 500 MG TAB PO SCH ×3 (08:31→20:44)
[2020-12-04] MEDS: ASPIRIN 81MG ENTERIC TABLET PO SCH (08:31)
[2020-12-04] MEDS: SERTRALINE HCL 50 MG TAB PO SCH (08:31)
[2020-12-04] MEDS: DOCUSATE SODIUM 100MG CAPSULE PO SCH ×2 (08:32→20:45)
[2020-12-04] MEDS: METOPROLOL TART 25 MG TABLET PO SCH ×2 (08:32→20:44)
[2020-12-04] MEDS: OCUVITE 1 TAB PO SCH (08:32)
[2020-12-04] MEDS: REMEDY PHYTOPLEX Z-GUARD PASTE 113GM TUBE (FROM STOREROOM PRODUCT) TOP SCH ×3 (08:32→20:45)
[2020-12-04 09:28] LABS: BASO # 0.1 10^3/uL (0.0-0.2); EOS # 0.3 10^3/uL (0.0-0.5); EOS % 3.9 % (0.0-3.0); HEMATOCRIT 31.1 % (36.0-47.0); HEMOGLOBIN 9.7 g/dl (12.0-15.5); LYMPH % 12.2 % (24.0-44.0); MEAN CORPUSCULAR HEMOGLOBIN 29.6 pg (27.0-33.0); MEAN CORPUSCULAR HGB CONC 31.2 g/dl (32.0-36.5); MEAN CORPUSCULAR VOLUME 94.8 fl (80.0-96.0); MONO # 0.5 10^3/uL (0.0-0.8); MONO % 6.2 % (2.0-8.0); NEUTROPHILS # 6.3 10^3/uL (1.5-8.5); NEUTROPHILS % 76.2 % (36.0-66.0); PLATELET COUNT, AUTOMATED 471 10^3/uL (150-450); RED BLOOD COUNT 3.28 10^6/uL (4.00-5.40); WHITE BLOOD COUNT 8.2 10^3/uL (4.0-10.0)
[2020-12-04 09:49] LABS: CALCIUM LEVEL 9.3 MG/DL (8.8-10.2); CREATININE FOR GFR 1.45 MG/DL (0.55-1.30); GLOMERULAR FILTRATION RATE 36.9 (>32); POTASSIUM SERUM 4.8 MEQ/L (3.5-5.1)
[2020-12-04 14:00] VITALS: BP 125/60
[2020-12-04] MEDS: oxyCODONE 5MG TAB PO PRN (14:08)
[2020-12-04] MEDS ORDERED: ASPI-551 PO (15:12)
[2020-12-04] MEDS ORDERED: SERT50TA29 PO (15:12)
[2020-12-04] MEDS ORDERED: METO1TAB87 PO (15:12)
[2020-12-04] MEDS ORDERED: OXYC-517 PO (15:12)
[2020-12-04] MEDS ORDERED: ROSU5TAB5 PO (15:12)
--- NOTE | 2020-12-04 15:16 | IPNPDOC ---
PM&R Progress Note DATE OF SERVICE: Dec 04, 2020 Manager Performance Improvement Progress Note Subjective: Patient stating she feels ready to go home tomorrow and would like her prescription for oxycodone to be discontinued. She thinks tylenol is working well enough at this time. REVIEW OF SYSTEMS: The following is a completed review of systems and has been reviewed. Review of systems otherwise unremarkable. PAIN: Patient self reports left hip pain EYES: No recent vision changes EARS, NOSE, & THROAT: No throat pain, or dysphagia, or rhinorrhea CARDIOVASCULAR: Denies chest pain or palpitation. PULMONARY: Denies shortness of breath GASTROINTESTINAL: Denies constipation/diarrhea GENITOURINARY: denies dysuria MUSCULOSKELETAL: s/p left hip ORIF NEUROLOGICAL:denies paresthesias HEMATOLOGICAL: +anemia SKIN: left hip incision PSYCHIATRIC: Unremarkable All other review of systems found to be negative. PHYSICAL EXAMINATION: VITAL SIGNS: Please see below. GENERAL: Pleasant and cooperative. No acute distress. HEENT: PERRL. Extraocular movements intact. Clear conjunctiva CARDIOVASCULAR: Regular rate and rhythm. No murmurs, rubs, or gallops LUNGS: Clear to auscultation bilaterally. No wheezes. No rhonchi ABDOMEN: Soft, nontender, nondistended. Positive bowel sounds. Normal active bowel sounds NEUROLOGICAL: Alert and oriented times three. Cranial nerves II through XII grossly intact. Sensation grossly intact including first web space on left foot EXTREMITIES:5\5 strength bilateral upper extremities. 5\5 strength right lower extremity. 5/5 strength in left ankle DF/PF/EHL (limited exam due to surgery) SKIN: peggy-incisional site c/d/i no ecchymosis ASSESSMENT:80-year-old F with past medical history of HTN, HLD, depression who presents status post fall with left hip fracture and ORIF PLAN: 1.Rehab- PT/OT advance mobility and ADLs, strengthen/stretch/maintain ROM all 4 limbs, ambulating further with RW, room privileges 2. Ortho s/p left hip ORIF cont WBAT, questionable left greater trochanter fracture on recent hip Xray, ortho reviewed, no surgical intervention -f/u ortho as outpatient 3. Cardiac- hx of HTN cont BP meds, added metoprolol for elevated BPs, improving -HLD cont statin -medicine consulted to assist in overall management 4. Resp- patient appears to have COPD, she is declining breathing treatments, will cont to monitor 5. DVT ppx- ASA 81 daily and TEDs 6. GI ppx- protonix 7. Pain- tylenol, cont oxycodone 2.5mg q4h prn, stopping gabapentin as may be causing patient to lose balance 8. Psych- zoloft for depression 9. Heme- patient with post-op anemia, Hgb improving, patient declining rbc transfusion, cont iron -FOBT negative 10. Dispo- 12-05-20 to home, progressing toward goals Allergies Coded Allergies: codeine (Verified Allergy, Intermediate, RASH, CONFUSION, 09/30/18) Vital Signs Vital Signs Date Time Temp Pulse Resp B/P (MAP) Pulse Ox O2 Delivery O2 Flow Rate FiO2 12/04/20 14:00 98.8 70 16 125/60 (81) 98 Room Air Laboratory Data CBC/BMP Laboratory Tests 12/04/20 08:35 Labs 24H Laboratory Tests 2 12/04/20 08:35: Immature Granulocyte % (Auto) 0.5, Neutrophils (%) (Auto) 76.2H, Lymphocytes (%) (Auto) 12.2L, Monocytes (%) (Auto) 6.2, Eosinophils (%) (Auto) 3.9H, Basophils (%) (Auto) 1.0, Neutrophils # (Auto) 6.3, Lymphocytes # (Auto) 1.0L, Monocytes # (Auto) 0.5, Eosinophils # (Auto) 0.3, Basophils # (Auto) 0.1, Nucleated Red Blood Cells % (auto) 0.0, Anion Gap 6L, Glomerular Filtration Rate 36.9, Calcium Level 9.3 Microbiology Microbiology 11/29/20 Stool Occult Blood (MOLLY) - Final, Complete Current Medications Current Medications Current Medications Medications (Trade) Dose Ordered Sig/Golden Route PRN Reason Start Time Stop Time Status Last Admin Dose Admin Acetaminophen (Tylenol Tab) 1,000 mg TID PO 11/20/20 16:00 12/04/20 08:31 Al Hydrox/Mg Hydrox/Simethicone (Mylanta) 30 ml Q6HP PRN PO HEARTBURN 11/20/20 15:40 Aspirin (Ecotrin) 81 mg DAILY PO 11/21/20 09:00 12/04/20 08:31 Docusate Sodium (Colace) 100 mg BID PO 11/20/20 21:00 12/03/20 07:37 Ferrous Gluconate (Fergon) 324 mg BID PO 11/24/20 09:00 12/04/20 08:31 Gabapentin (Neurontin) 100 mg BID PO 11/28/20 21:00 11/29/20 10:49 DC 11/29/20 08:33 Gabapentin (Neurontin) 100 mg TID PO 11/27/20 09:00 11/28/20 09:36 DC 11/28/20 08:20 Home Med (Home Med List Complete!) ASDIRECTED XX 11/27/20 11:30 11/27/20 11:39 DC Lisinopril (Prinivil) 5 mg DAILY PO 11/21/20 09:00 11/28/20 09:36 DC 11/28/20 08:20 Metoprolol Tartrate (Lopressor) 25 mg BID PO 11/28/20 09:00 12/04/20 08:32 Multivitamins (Ocuvite(I-Laura)) 1 tab DAILY PO 11/21/20 09:00 12/04/20 08:32 Oxycodone HCl (Roxicodone, Oxyir) 2.5 mg Q4HP PRN PO MODERATE PAIN (PS 5-7) 11/20/20 15:40 11/23/20 13:20 DC 11/22/20 20:42 Oxycodone HCl (Roxicodone, Oxyir) 2.5 mg Q4HP PRN PO MODERATE PAIN (PS 5-7) 11/27/20 11:25 12/03/20 12:38 Pantoprazole Sodium (Protonix) 40 mg DAILY PO 11/21/20 09:00 12/04/20 08:31 Polyethylene Glycol (Miralax) 1 pkt DAILY PRN PO CONSTIPATION 11/20/20 15:40 Ramelteon (Rozerem) 8 mg QHS PO 11/20/20 21:00 12/03/20 20:37 Rosuvastatin Calcium (Crestor) 5 mg DAILY PO 11/21/20 09:00 12/04/20 08:31 Senna (Senokot) 1 tab QHS PO 11/20/20 21:00 11/29/20 20:22 Sertraline HCl (Zoloft) 50 mg DAILY PO 11/21/20 09:00 12/04/20 08:31 Tramadol HCl (Ultram) 50 mg Q4HP PRN PO MODERATE PAIN (PS 5-7) 11/23/20 13:20 11/27/20 11:21 JESSIE 11/27/20 08:22 Tramadol HCl (Ultram) 75 mg Q4HP PRN PO MODERATE PAIN (PS 5-7) 11/27/20 11:20 11/27/20 11:23 TOMI COYNE MD Dec 04, 2020 15:16
[2020-12-04 20:44] VITALS: BP 125/59
[2020-12-04] MEDS: RAMELTEON 8 MG TAB (ROZEREM) PO SCH (20:44)
[2020-12-04] MEDS: SENNA 8.6 MG TAB (SENOKOT) PO SCH (20:45)
[2020-12-05 05:36] VITALS: BP 154/70
[2020-12-05] MEDS: REMEDY PHYTOPLEX Z-GUARD PASTE 113GM TUBE (FROM STOREROOM PRODUCT) TOP SCH (09:00)
[2020-12-05] MEDS: DOCUSATE SODIUM 100MG CAPSULE PO SCH (09:00)
[2020-12-05] MEDS: OCUVITE 1 TAB PO SCH (09:04)
[2020-12-05] MEDS: FERROUS GLUCONATE 324 MG TAB PO SCH (09:04)
[2020-12-05] MEDS: SERTRALINE HCL 50 MG TAB PO SCH (09:04)
[2020-12-05] MEDS: PANTOPRAZOLE 40MG TAB (PROTONIX) PO SCH (09:04)
[2020-12-05] MEDS: ASPIRIN 81MG ENTERIC TABLET PO SCH (09:04)
[2020-12-05 09:05] VITALS: BP 148/70
[2020-12-05] MEDS: ACETAMINOPHEN 500 MG TAB PO SCH (09:05)
[2020-12-05] MEDS: ROSUVASTATIN 10 MG TAB (CRESTOR) PO SCH (09:05)
[2020-12-05] MEDS: METOPROLOL TART 25 MG TABLET PO SCH (09:05)
--- NOTE | 2020-12-05 12:05 | PMRDS ---
NAME: KEY GARCIA [facility] WT ID#: [id number] : [id number] JOB: BENSON: 12/05/2020 ACCT: [id number] DOCTOR: TOMI MILLER MD PMR DISCHARGE SUMMARY DATE OF ADMISSION: 11/20/2020 DATE OF DISCHARGE: 12/05/2020 CHIEF COMPLAINT/DISCHARGE DIAGNOSIS: Left hip fracture. HISTORY OF PRESENT ILLNESS: This is an 80-year-old female with a past medical history of hypertension, hyperlipidemia, depression, COPD due to prolonged secondhand smoke exposure, who presented to [facility] ED on 11/18/2020 with left hip pain following a fall at home without presyncopal symptoms. Hip x-ray revealed "acute moderately displaced intertrochanteric fracture of the left femur ossification with irregular lucency adjacent to the greater trochanter in the right femur. Acute or chronic fracture of the greater trochanter of the right femur cannot be excluded." She was evaluated by orthopedics, who performed an ORIF on 11/19/2020, made weightbearing as tolerated to the left lower extremity and placed on baby aspirin for DVT prophylaxis. She had postop anemia, weakness and pain, was evaluated by therapy and found to have mobility in ADL impairments below her baseline and deemed medically appropriate for discharge to ARU. PAST MEDICAL HISTORY: As per HPI. HOSPITAL COURSE: Patient was admitted and enrolled in a comprehensive PT, OT program. She received 24 hour nursing supervision, and weekly team meetings were held to discuss her progress. Patient's pain was initially controlled with Oxycodone, then transitioned to Tramadol with worsening pain and switched back to Oxycodone. Patient trialed a dose Gabapentin, however, this made her feel altered and this was discontinued. Patient had postop anemia and did decline RBC transfusion, was started on oral iron with an FOBT returning negative. She had a chronic mild cough that was intermittent and she refused breathing treatments despite having a probable history of COPD. Her blood pressures were managed with the addition of Metoprolol for elevated blood pressures and she made steady gains in therapy and was deemed medically and functionally stable to return home. DISCHARGE MEDICATIONS: As per instructions. FUNCTIONAL HISTORY: On discharge, patient was moderate independent for ADLs and mobility. Thank you for this referral.
== END 2020-12-05 12:05 | disposition home health service (06) | DRG 561 ==
LOC: M PM&R 16:05
PROVIDERS: ADMIT Physical Medicine & Rehabilitation; ATTEND Physical Medicine & Rehabilitation
DX: S72.142D Displaced intertrochanteric fracture of left femur, subsequent encounter for closed fracture with routine healing (principal); I10 Essential (primary) hypertension; E78.5 Hyperlipidemia, unspecified; F32.9 Major depressive disorder, single episode, unspecified; J44.9 Chronic obstructive pulmonary disease, unspecified; Z77.22 Contact with and (suspected) exposure to environmental tobacco smoke (acute) (chronic); Z74.09 Other reduced mobility; Z74.1 Need for assistance with personal care; Z79.82 Long term (current) use of aspirin; Z79.899 Other long term (current) drug therapy; Z79.1 Long term (current) use of non-steroidal anti-inflammatories (NSAID); Z88.5 Allergy status to narcotic agent; W18.30XD Fall on same level, unspecified, subsequent encounter; Y92.009 Unspecified place in unspecified non-institutional (private) residence as the place of occurrence of the external cause

== ENCOUNTER → 2020-12-14 | Outpatient (CLI) | payer MEDICARE ==
[~2020-12-14] MED LIST changes: +METO1TAB87 PO; +OXYC-517 PO
--- NOTE | 2020-12-14 11:00 | REP ---
INDICATION: SURGICAL AFTERCARE. COMPARISON: 11/18/2018 a pre operative exam TECHNIQUE: Two views FINDINGS: Since the last examination the patient has undergone ORIF with an internal femoral diaphyseal fixation shelly and femoral neck lag screw. The tip of the screw does not breach the joint space. The previously described fracture been openly reduced and internally fixed. The alignment is near anatomical. No acute fracture has developed since the last exam. IMPRESSION: As above <Electronically signed by Michael Morgan > 12/14/20 [id number]
== END ==
LOC: M SOG 09:33
PROVIDERS: ATTEND Orthopaedic Surgery
DX: Z48.89 Encounter for other specified surgical aftercare (principal); Z87.81 Personal history of (healed) traumatic fracture

== ENCOUNTER → 2021-03-27 | Outpatient (CLI) | payer MEDICARE ==
[~2021-03-27] MED LIST changes: -LISI-898 PO; +LISI5TAB11 PO
== END ==
LOC: M SOG 09:48
PROVIDERS: ATTEND Orthopaedic Surgery
DX: S72.142D Displaced intertrochanteric fracture of left femur, subsequent encounter for closed fracture with routine healing (principal); X58.XXXD Exposure to other specified factors, subsequent encounter; Y92.9 Unspecified place or not applicable; Y93.9 Activity, unspecified; Y99.9 Unspecified external cause status

== ENCOUNTER → 2021-05-29 | Outpatient (CLI) | payer MEDICARE | LOC: M SOG 15:36 | PROVIDERS: ATTEND Orthopaedic Surgery | DX: S72.142D Displaced intertrochanteric fracture of left femur, subsequent encounter for closed fracture with routine healing (principal); M17.11 Unilateral primary osteoarthritis, right knee; M16.12 Unilateral primary osteoarthritis, left hip ==

== ENCOUNTER → 2021-05-31 | Outpatient (CLI) | payer MEDICARE | LOC: M SOG 13:30 | PROVIDERS: ATTEND Orthopaedic Surgery | DX: S72.142D Displaced intertrochanteric fracture of left femur, subsequent encounter for closed fracture with routine healing (principal); X58.XXXD Exposure to other specified factors, subsequent encounter; Y92.9 Unspecified place or not applicable; Y93.9 Activity, unspecified; Y99.9 Unspecified external cause status ==

== ENCOUNTER → 2021-06-21 | Outpatient (CLI) | payer MEDICARE | LOC: M SOG 10:03 | PROVIDERS: ATTEND Orthopaedic Surgery | DX: M87.252 Osteonecrosis due to previous trauma, left femur (principal); M16.12 Unilateral primary osteoarthritis, left hip ==

== ENCOUNTER 2021-07-02 14:59 | Inpatient (IN) | payer MEDICARE ==
[~2021-07-02] VITALS: Ht 157.5 cm; Wt 49.9 kg
[2021-07-02 15:31] LABS: HEMATOCRIT 39.9 % (36.0-47.0); HEMOGLOBIN 12.5 g/dl (12.0-15.5); MEAN CORPUSCULAR HEMOGLOBIN 27.1 pg (27.0-33.0); MEAN CORPUSCULAR HGB CONC 31.3 g/dl (32.0-36.5); MEAN CORPUSCULAR VOLUME 86.4 fl (80.0-96.0); PLATELET COUNT, AUTOMATED 356 10^3/uL (150-450); RED BLOOD COUNT 4.62 10^6/uL (4.00-5.40)
[2021-07-02] MEDS ORDERED: ceFAZolin 1GM VIAL (J0690 PER 500MG) As Ordered ONE (15:34)
[2021-07-02] MEDS ORDERED: EPINEPHrine INJ 1 MG/ML 1ML AMP As Ordered ONE (15:34)
[2021-07-02] MEDS ORDERED: CLINDAMYCIN 900MG/6ML VIAL As Ordered ONE (15:35)
[2021-07-02] MEDS ORDERED: NAPR-855 PO (15:58)
[2021-07-02] MEDS ORDERED: ZOLO100T PO (15:58)
[2021-07-02] MEDS ORDERED: AMLO1TAB24 PO (15:58)
[2021-07-02] MEDS ORDERED: OLME20TA2 PO (15:58)
[2021-07-02 16:02] LABS: CALCIUM LEVEL 10.3 MG/DL (8.8-10.2); CREATININE FOR GFR 1.52 MG/DL (0.55-1.30); GLOMERULAR FILTRATION RATE 34.9 (>32); POTASSIUM SERUM 4.4 MEQ/L (3.5-5.1)
[2021-07-02] MEDS ORDERED: LIDOCAINE 2% 100MG/5ML SDV (FOR ANES.) As Ordered ONE (16:41)
[2021-07-02] MEDS ORDERED: fentaNYL 100 MCG/2 ML INJECTION As Ordered ONE ×2 (16:41→18:35)
[2021-07-02] MEDS ORDERED: propofoL 200 MG/20 ML VIAL As Ordered ONE (16:41)
[2021-07-02] MEDS ORDERED: dexameTHASONE 4 MG/ML 1ML VIAL (J1100 PER 1MG) As Ordered ONE (16:41)
[2021-07-02] MEDS ORDERED: METOCLOPRAMIDE INJ 10MG/2ML VIAL (J2765 PER 1) As Ordered ONE (16:41)
[2021-07-02] MEDS ORDERED: ONDANSETRON 4MG/2ML VIAL As Ordered ONE (16:41)
[2021-07-02] MEDS ORDERED: TRANEXAMIC ACID INJection 1,000 MG in D5W 100 ML IV ONE (16:45)
[2021-07-02] MEDS ORDERED: ceFAZolin SOD 2 GM in IV 1 EA IV ONE (16:45)
[2021-07-02] MEDS ORDERED: TRANEXAMIC ACID 100 MG/ML 10ML VIAL IV SCH (16:50)
[2021-07-02] MEDS ORDERED: TRANEXAMIC ACID 100 MG/ML 10ML VIAL As Ordered ONE (17:28)
[2021-07-02] MEDS ORDERED: ROCURONIUM BROMIDE 50 MG/5 ML VIAL As Ordered ONE ×2 (17:28→20:08)
[2021-07-02] MEDS ORDERED: BUPIVACAINE LIPOSOME/PF 1.3% 20ML VIAL (13.3MG/ML)(EXPAREL) As Ordered ONE (17:57)
[2021-07-02] MEDS ORDERED: BUPIVACAINE HCL 0.25% 30ML VIAL As Ordered ONE (18:00)
[2021-07-02] MEDS ORDERED: PHENYLEPHRINE 10MG/ML 1ML VIAL (J2370 PER 1) As Ordered ONE (18:20)
[2021-07-02] MEDS ORDERED: LABETALOL 100MG/20ML VIAL As Ordered ONE (18:43)
[2021-07-02] MEDS ORDERED: VANCOMYCIN 1000MG/20ML VIAL As Ordered ONE (18:56)
[2021-07-02] MEDS ORDERED: ACETAMINOPHEN 1000MG 100ML IV BTL (OFIRMEV) (J0131 PER 10MG) As Ordered ONE (20:08)
[2021-07-02] MEDS ORDERED: SUGAMMADEX SODIUM 500 MG/5 ML VIAL (BRIDION) As Ordered ONE (20:08)
[2021-07-02] MEDS: ROSUVASTATIN 10 MG TAB (CRESTOR) PO SCH (21:00)
[2021-07-02] MEDS ORDERED: ONDANSETRON 4MG/2ML VIAL IV PRN ×2 (21:05→21:35)
[2021-07-02] MEDS ORDERED: oxyCODONE 5MG TAB PO PRN (21:05)
[2021-07-02] MEDS ORDERED: LR 1,000 ML IV SCH ×2 (21:05→21:30)
[2021-07-02] MEDS ORDERED: fentaNYL 100 MCG/2 ML INJECTION IV PRN (21:05)
[2021-07-02 21:40] VITALS: BP 153/76
[2021-07-02] MEDS ORDERED: MOM 30ML SUSPENSION UDC PO PRN (21:45)
[2021-07-02] MEDS ORDERED: HEPARIN SOD (PORCINE) 5000UNITS/ML 1ML VIAL/SYRINGE SC SCH (22:00)
[2021-07-02 22:10] VITALS: BP 142/75
[2021-07-02] MEDS ORDERED: NS 1,000 ML IV SCH (22:10)
[2021-07-02] MEDS ORDERED: ROSU5TAB5 PO (22:25)
[2021-07-02] MEDS ORDERED: VITA100093 PO (22:25)
[2021-07-02] MEDS ORDERED: HOME MED LIST COMPLETE! XX SCH (22:30)
[2021-07-02 22:40] VITALS: BP 136/73
[2021-07-02] MEDS ORDERED: POLYVINYL ALCOHOL OPHTH SOLN 15 ML(LIQUITEARS) OD PRN (22:55)
[2021-07-02] MEDS ORDERED: PILL CUTTER 1 EACH XX PRN (23:20)
[2021-07-02 23:45] VITALS: BP 104/58
[2021-07-03 01:00] VITALS: BP 119/64
[2021-07-03] MEDS: ceFAZolin SOD 2 GM in IV 1 EA IV SCH ×2 (02:07→09:41)
[2021-07-03] MEDS: CIPROFLOXACIN 0.3% OPHTH SOLN 2.5ML OS SCH ×4 (02:26→18:35)
[2021-07-03 03:00] VITALS: BP 114/62
[2021-07-03 06:00] VITALS: BP 111/61
[2021-07-03] MEDS: HEPARIN SOD (PORCINE) 5000UNITS/ML 1ML VIAL/SYRINGE SC SCH ×3 (06:18→20:39)
[2021-07-03 06:19] LABS: HEMATOCRIT 30.6 % (36.0-47.0); MEAN CORPUSCULAR HEMOGLOBIN 27.3 pg (27.0-33.0); MEAN CORPUSCULAR HGB CONC 31.7 g/dl (32.0-36.5); MEAN CORPUSCULAR VOLUME 86.2 fl (80.0-96.0); PLATELET COUNT, AUTOMATED 290 10^3/uL (150-450); RED BLOOD COUNT 3.55 10^6/uL (4.00-5.40); WHITE BLOOD COUNT 12.2 10^3/uL (4.0-10.0)
[2021-07-03 06:25] LABS: HEMOGLOBIN 9.7 g/dl (12.0-15.5)
[2021-07-03 06:27] LABS: ALBUMIN 2.8 GM/DL (3.2-5.2); BILIRUBIN,TOTAL 0.4 MG/DL (0.2-1.0); CALCIUM LEVEL 8.9 MG/DL (8.8-10.2); CREATININE FOR GFR 1.76 MG/DL (0.55-1.30); GLOMERULAR FILTRATION RATE 29.4 (>32); POTASSIUM SERUM 4.4 MEQ/L (3.5-5.1); TOTAL PROTEIN 6.6 GM/DL (6.4-8.2)
[2021-07-03 06:42] LABS: INR 1.18; PROTHROMBIN TIME 15.4 SECONDS (12.7-14.5)
[2021-07-03] MEDS: amLODIPine 5 MG TAB PO SCH (09:00)
[2021-07-03] MEDS ORDERED: OLMESARTAN MEDOXOMIL 20 MG TAB (BENICAR) PO SCH (09:00)
[2021-07-03] MEDS: DOCUSATE SODIUM 100MG CAPSULE PO SCH ×2 (09:40→20:39)
[2021-07-03] MEDS: SERTRALINE 100 MG TAB PO SCH (09:40)
[2021-07-03] MEDS: ACETAMINOPHEN TAB 650MG DOSE (2X325MG) PO PRN (09:46)
[2021-07-03 10:00] VITALS: BP 110/61
[2021-07-03] MEDS ORDERED: oxyCODONE 5MG TAB PO ONE (13:10)
[2021-07-03 13:50] LABS: BASO % 0.2 % (0.0-1.0); LYMPH # 0.4 10^3/uL (1.5-5.0); LYMPH % 3.2 % (24.0-44.0); MONO # 0.9 10^3/uL (0.0-0.8); MONO % 7.5 % (2.0-8.0); NEUTROPHILS # 10.8 10^3/uL (1.5-8.5); NEUTROPHILS % 88.6 % (36.0-66.0)
[2021-07-03 14:00] VITALS: BP 119/66
[2021-07-03 15:19] LABS: CALCIUM LEVEL 8.9 MG/DL (8.8-10.2); CREATININE FOR GFR 1.9 MG/DL (0.55-1.30); GLOMERULAR FILTRATION RATE 26.9 (>32); POTASSIUM SERUM 3.9 MEQ/L (3.5-5.1)
[2021-07-03] MEDS: oxyCODONE 5MG TAB PO PRN (19:41)
[2021-07-03] MEDS: ROSUVASTATIN 10 MG TAB (CRESTOR) PO SCH (20:39)
[2021-07-03 22:00] VITALS: BP 104/57
[2021-07-04 06:00] VITALS: BP 101/54
[2021-07-04] MEDS: CIPROFLOXACIN 0.3% OPHTH SOLN 2.5ML OS SCH ×5 (06:31→23:50)
[2021-07-04] MEDS: HEPARIN SOD (PORCINE) 5000UNITS/ML 1ML VIAL/SYRINGE SC SCH ×3 (06:31→20:56)
[2021-07-04 08:12] LABS: BASO # 0.1 10^3/uL (0.0-0.2); BASO % 0.5 % (0.0-1.0); EOS % 0.4 % (0.0-3.0); HEMATOCRIT 25.6 % (36.0-47.0); HEMOGLOBIN 8.1 g/dl (12.0-15.5); LYMPH # 1.1 10^3/uL (1.5-5.0); LYMPH % 10.6 % (24.0-44.0); MEAN CORPUSCULAR HEMOGLOBIN 27.4 pg (27.0-33.0); MEAN CORPUSCULAR HGB CONC 31.6 g/dl (32.0-36.5); MEAN CORPUSCULAR VOLUME 86.5 fl (80.0-96.0); MONO % 15.1 % (2.0-8.0); NEUTROPHILS # 7.4 10^3/uL (1.5-8.5); NEUTROPHILS % 72.9 % (36.0-66.0); PLATELET COUNT, AUTOMATED 227 10^3/uL (150-450); RED BLOOD COUNT 2.96 10^6/uL (4.00-5.40); WHITE BLOOD COUNT 10.2 10^3/uL (4.0-10.0)
[2021-07-04 08:28] LABS: CALCIUM LEVEL 8.6 MG/DL (8.8-10.2); CREATININE FOR GFR 1.69 MG/DL (0.55-1.30); GLOMERULAR FILTRATION RATE 30.8 (>32); MAGNESIUM LEVEL 2.1 MG/DL (1.8-2.4); POTASSIUM SERUM 4.1 MEQ/L (3.5-5.1)
[2021-07-04 08:47] LABS: MONO # 1.5 10^3/uL (0.0-0.8)
[2021-07-04] MEDS: amLODIPine 5 MG TAB PO SCH (09:00)
[2021-07-04] MEDS: SERTRALINE 100 MG TAB PO SCH (09:18)
[2021-07-04] MEDS: DOCUSATE SODIUM 100MG CAPSULE PO SCH ×2 (09:18→20:56)
[2021-07-04] MEDS: oxyCODONE 5MG TAB PO PRN ×2 (09:19→21:00)
[2021-07-04 12:24] LABS: BASO # 0.1 10^3/uL (0.0-0.2); BASO % 0.6 % (0.0-1.0); EOS % 0.4 % (0.0-3.0); LYMPH # 1.1 10^3/uL (1.5-5.0); LYMPH % 10.1 % (24.0-44.0); MEAN CORPUSCULAR HEMOGLOBIN 26.3 pg (27.0-33.0); MEAN CORPUSCULAR HGB CONC 30.8 g/dl (32.0-36.5); MEAN CORPUSCULAR VOLUME 85.5 fl (80.0-96.0); MONO # 1.5 10^3/uL (0.0-0.8); NEUTROPHILS # 7.9 10^3/uL (1.5-8.5); NEUTROPHILS % 74.3 % (36.0-66.0); PLATELET COUNT, AUTOMATED 219 10^3/uL (150-450); RED BLOOD COUNT 3.04 10^6/uL (4.00-5.40); WHITE BLOOD COUNT 10.6 10^3/uL (4.0-10.0)
[2021-07-04 14:00] VITALS: BP 104/56
[2021-07-04 17:54] LABS: HEMATOCRIT 27.1 % (36.0-47.0); HEMOGLOBIN 8.6 g/dl (12.0-15.5)
[2021-07-04] MEDS: ROSUVASTATIN 10 MG TAB (CRESTOR) PO SCH (20:56)
[2021-07-04 22:00] VITALS: BP 93/45
[2021-07-05] MEDS: CIPROFLOXACIN 0.3% OPHTH SOLN 2.5ML OS SCH ×4 (05:34→23:25)
[2021-07-05] MEDS: HEPARIN SOD (PORCINE) 5000UNITS/ML 1ML VIAL/SYRINGE SC SCH ×3 (05:35→20:50)
[2021-07-05 06:00] VITALS: BP 94/47
[2021-07-05 06:21] LABS: BASO # 0.1 10^3/uL (0.0-0.2); BASO % 0.6 % (0.0-1.0); EOS # 0.1 10^3/uL (0.0-0.5); EOS % 0.9 % (0.0-3.0); HEMATOCRIT 25.3 % (36.0-47.0); LYMPH # 1.3 10^3/uL (1.5-5.0); LYMPH % 12.8 % (24.0-44.0); MEAN CORPUSCULAR HEMOGLOBIN 27.4 pg (27.0-33.0); MEAN CORPUSCULAR HGB CONC 31.6 g/dl (32.0-36.5); MEAN CORPUSCULAR VOLUME 86.6 fl (80.0-96.0); MONO # 1.3 10^3/uL (0.0-0.8); NEUTROPHILS # 7.2 10^3/uL (1.5-8.5); NEUTROPHILS % 72.2 % (36.0-66.0); PLATELET COUNT, AUTOMATED 237 10^3/uL (150-450); RED BLOOD COUNT 2.92 10^6/uL (4.00-5.40)
[2021-07-05 06:47] LABS: CALCIUM LEVEL 8.7 MG/DL (8.8-10.2); CREATININE FOR GFR 1.53 MG/DL (0.55-1.30); GLOMERULAR FILTRATION RATE 34.6 (>32); MAGNESIUM LEVEL 2.2 MG/DL (1.8-2.4); POTASSIUM SERUM 4.2 MEQ/L (3.5-5.1)
[2021-07-05] MEDS: amLODIPine 5 MG TAB PO SCH (07:33)
[2021-07-05] MEDS ORDERED: NS 0.45% 500 ML IV ONE (08:30)
[2021-07-05] MEDS: ACETAMINOPHEN TAB 650MG DOSE (2X325MG) PO PRN (09:47)
[2021-07-05] MEDS: DOCUSATE SODIUM 100MG CAPSULE PO SCH ×2 (09:47→20:47)
[2021-07-05] MEDS: SERTRALINE 100 MG TAB PO SCH (09:47)
[2021-07-05] MEDS: ROSUVASTATIN 10 MG TAB (CRESTOR) PO SCH (20:47)
[2021-07-05] MEDS: oxyCODONE 5MG TAB PO PRN (20:49)
[2021-07-06] MEDS: HEPARIN SOD (PORCINE) 5000UNITS/ML 1ML VIAL/SYRINGE SC SCH (05:01)
[2021-07-06 05:58] VITALS: BP 114/67
[2021-07-06 08:36] VITALS: BP 114/68
[2021-07-06] MEDS: amLODIPine 5 MG TAB PO SCH (08:36)
[2021-07-06] MEDS: DOCUSATE SODIUM 100MG CAPSULE PO SCH (08:45)
[2021-07-06] MEDS: SERTRALINE 100 MG TAB PO SCH (08:46)
[2021-07-06] MEDS: oxyCODONE 5MG TAB PO PRN (08:46)
[2021-07-06 08:53] LABS: BASO # 0.1 10^3/uL (0.0-0.2); BASO % 0.6 % (0.0-1.0); EOS # 0.3 10^3/uL (0.0-0.5); EOS % 3.1 % (0.0-3.0); HEMATOCRIT 23.3 % (36.0-47.0); HEMOGLOBIN 7.3 g/dl (12.0-15.5); LYMPH # 0.9 10^3/uL (1.5-5.0); LYMPH % 11.3 % (24.0-44.0); MEAN CORPUSCULAR HEMOGLOBIN 27.3 pg (27.0-33.0); MEAN CORPUSCULAR HGB CONC 31.3 g/dl (32.0-36.5); MEAN CORPUSCULAR VOLUME 87.3 fl (80.0-96.0); MONO # 0.8 10^3/uL (0.0-0.8); MONO % 10.2 % (2.0-8.0); NEUTROPHILS # 5.9 10^3/uL (1.5-8.5); NEUTROPHILS % 74.3 % (36.0-66.0); PLATELET COUNT, AUTOMATED 226 10^3/uL (150-450); RED BLOOD COUNT 2.67 10^6/uL (4.00-5.40)
[2021-07-06 09:19] LABS: CALCIUM LEVEL 8.3 MG/DL (8.8-10.2); CREATININE FOR GFR 1.37 MG/DL (0.55-1.30); GLOMERULAR FILTRATION RATE 39.3 (>32); MAGNESIUM LEVEL 2.2 MG/DL (1.8-2.4); POTASSIUM SERUM 4.1 MEQ/L (3.5-5.1)
== END 2021-07-06 12:05 | DRG 470 ==
LOC: M SDC 14:59 → M MS5PR 21:30 → M SDC 21:51 → M MS5PR 21:52
PROVIDERS: ADMIT Family Medicine; ATTEND Family Medicine
PROC: 0SRS0JZ Replacement of Left Hip Joint, Femoral Surface with Synthetic Substitute, Open Approach (ICD-10-PCS; principal; 2021-07-02 17:00)
PROC: 0SPB04Z Removal of Internal Fixation Device from Left Hip Joint, Open Approach (ICD-10-PCS; 2021-07-02 17:00)
DX: T84.195A Other mechanical complication of internal fixation device of left femur, initial encounter (principal); M87.052 Idiopathic aseptic necrosis of left femur; N17.9 Acute kidney failure, unspecified; I12.9 Hypertensive chronic kidney disease with stage 1 through stage 4 chronic kidney disease, or unspecified chronic kidney disease; E78.5 Hyperlipidemia, unspecified; N18.32 Chronic kidney disease, stage 3b; E86.0 Dehydration; D64.9 Anemia, unspecified; Z79.899 Other long term (current) drug therapy; Z88.5 Allergy status to narcotic agent; F32.A Depression, unspecified; Y83.1 Surgical operation with implant of artificial internal device as the cause of abnormal reaction of the patient, or of later complication, without mention of misadventure at the time of the procedure

== ENCOUNTER → 2021-07-16 | Outpatient (CLI) | payer MEDICARE ==
[~2021-07-16] MED LIST changes: +AMLO1TAB24 PO; +NAPR-855 PO; +OLME20TA2 PO; +VITA100093 PO
== END ==
LOC: M SOG 08:22
PROVIDERS: ATTEND Physician Assistant
DX: M87.252 Osteonecrosis due to previous trauma, left femur (principal); Z96.642 Presence of left artificial hip joint; M17.12 Unilateral primary osteoarthritis, left knee; M85.852 Other specified disorders of bone density and structure, left thigh

== ENCOUNTER → 2021-08-02 | Outpatient (REF) | payer MEDICARE ==
[~2021-08-02] MED LIST changes: +ALBU2.5V10 INH; -ALBU83IN INH
[2021-08-02 13:58] LABS: FOLATE 20.5 NG/ML
== END ==
LOC: M LAB REF 12:54
PROVIDERS: ATTEND Internal Medicine
DX: N18.9 Chronic kidney disease, unspecified (principal); I12.9 Hypertensive chronic kidney disease with stage 1 through stage 4 chronic kidney disease, or unspecified chronic kidney disease; D63.1 Anemia in chronic kidney disease

== ENCOUNTER → 2021-08-30 | Outpatient (CLI) | payer MEDICARE | LOC: M SOG 09:00 | PROVIDERS: ATTEND Orthopaedic Surgery | DX: T84.12 Displacement of internal fixation device of bones of limb (principal) ==

== ENCOUNTER 2021-09-09 16:08 | Inpatient (IN) | payer MEDICARE ==
[~2021-09-09] VITALS: Ht 154.9 cm; Wt 48.2 kg
[2021-09-09] MEDS ORDERED: ACETAMINOPHEN TAB 650MG DOSE (2X325MG) PO PRN (17:15)
[2021-09-09] MEDS ORDERED: ONDANSETRON 4MG 2ML VIAL IV PRN (17:15)
[2021-09-09] MEDS ORDERED: MORPHINE 4 MG/ML 1ML VIAL/SYRINGE IV PRN (17:15)
[2021-09-09] MEDS ORDERED: MAALOX 30 ML SUSP *UDC PO PRN (17:15)
[2021-09-09] MEDS ORDERED: MOM 30ML SUSPENSION UDC PO PRN (17:15)
[2021-09-09 17:43] VITALS: BP 147/79
[2021-09-09 18:03] LABS: BASO # 0.1 10^3/uL (0.0-0.2); BASO % 0.6 % (0.0-1.0); EOS # 0.1 10^3/uL (0.0-0.5); EOS % 1.3 % (0.0-3.0); HEMATOCRIT 33.5 % (36.0-47.0); HEMOGLOBIN 10.4 g/dl (12.0-15.5); LYMPH # 1.4 10^3/uL (1.5-5.0); LYMPH % 15.1 % (24.0-44.0); MEAN CORPUSCULAR HEMOGLOBIN 26.4 pg (27.0-33.0); MONO # 0.9 10^3/uL (0.0-0.8); NEUTROPHILS % 73.6 % (36.0-66.0); PLATELET COUNT, AUTOMATED 311 10^3/uL (150-450); RED BLOOD COUNT 3.94 10^6/uL (4.00-5.40); WHITE BLOOD COUNT 9.5 10^3/uL (4.0-10.0)
[2021-09-09] MEDS: NS 1,000 ML IV SCH (18:22)
[2021-09-09] MEDS ORDERED: HOME MED LIST COMPLETE! XX SCH (18:25)
[2021-09-09 18:28] LABS: CALCIUM LEVEL 8.4 MG/DL (8.8-10.2); CREATININE FOR GFR 1.45 MG/DL (0.55-1.30); GLOMERULAR FILTRATION RATE 36.8 (>32); MAGNESIUM LEVEL 1.7 MG/DL (1.8-2.4); POTASSIUM SERUM 4.2 MEQ/L (3.5-5.1)
[2021-09-09] MEDS ORDERED: MAG SULF 1GM/100ML (MAG RUN) 1 GM in IV 1 EA IV ONE (19:00)
[2021-09-09] MEDS: oxyCODONE 5MG TAB PO PRN (19:10)
[2021-09-09 20:13] VITALS: BP 146/76
[2021-09-09] MEDS: DOCUSATE SODIUM 100MG CAPSULE PO SCH (20:34)
[2021-09-09] MEDS: RAMELTEON 8 MG TAB (ROZEREM) PO PRN (22:46)
[2021-09-10] VITALS (9 sets, daily range): BP systolic 92–142; BP diastolic 52–76
[2021-09-10] MEDS: oxyCODONE 5MG TAB PO PRN ×2 (01:50→08:43)
[2021-09-10 05:34] LABS: BASO # 0.1 10^3/uL (0.0-0.2); BASO % 0.6 % (0.0-1.0); EOS # 0.4 10^3/uL (0.0-0.5); EOS % 4.4 % (0.0-3.0); HEMATOCRIT 32.1 % (36.0-47.0); HEMOGLOBIN 9.7 g/dl (12.0-15.5); LYMPH # 1.1 10^3/uL (1.5-5.0); LYMPH % 13.6 % (24.0-44.0); MEAN CORPUSCULAR HEMOGLOBIN 26.3 pg (27.0-33.0); MEAN CORPUSCULAR HGB CONC 30.2 g/dl (32.0-36.5); MONO % 12.9 % (2.0-8.0); NEUTROPHILS # 5.4 10^3/uL (1.5-8.5); NEUTROPHILS % 68.1 % (36.0-66.0); PLATELET COUNT, AUTOMATED 281 10^3/uL (150-450); RED BLOOD COUNT 3.69 10^6/uL (4.00-5.40)
[2021-09-10 05:57] LABS: CALCIUM LEVEL 8.7 MG/DL (8.8-10.2); CREATININE FOR GFR 1.33 MG/DL (0.55-1.30); GLOMERULAR FILTRATION RATE 40.7 (>32); POTASSIUM SERUM 4.3 MEQ/L (3.5-5.1)
[2021-09-10 07:51] LABS: MAGNESIUM LEVEL 2.1 MG/DL (1.8-2.4)
[2021-09-10] MEDS: DOCUSATE SODIUM 100MG CAPSULE PO SCH ×2 (08:43→21:00)
[2021-09-10] MEDS ORDERED: PILL CUTTER 1 EACH XX PRN (09:40)
[2021-09-10] MEDS: SERTRALINE 100 MG TAB PO SCH (09:47)
[2021-09-10] MEDS: VITAMIN D 1,000 INTERNATIONAL UNITS TABLET PO SCH (09:48)
[2021-09-10] MEDS: NS 1,000 ML IV SCH (10:40)
[2021-09-10] MEDS ORDERED: fentaNYL 100 MCG/2 ML INJECTION As Ordered ONE (14:05)
[2021-09-10] MEDS ORDERED: propofoL 200 MG/20 ML VIAL As Ordered ONE (14:05)
[2021-09-10] MEDS ORDERED: LIDOCAINE 2% 100MG/5ML SDV (FOR ANES.) As Ordered ONE (14:05)
[2021-09-10] MEDS ORDERED: SUGAMMADEX SODIUM 500 MG/5 ML VIAL (BRIDION) As Ordered ONE (14:05)
[2021-09-10] MEDS ORDERED: ONDANSETRON 4MG 2ML VIAL As Ordered ONE (14:05)
[2021-09-10] MEDS ORDERED: dexameTHASONE 4 MG/ML 1ML VIAL (J1100 PER 1MG) As Ordered ONE (14:05)
[2021-09-10] MEDS ORDERED: ePHEDrine SULFATE 25 MG/5 ML(5MG/ML) SYRINGE As Ordered ONE (14:05)
[2021-09-10] MEDS ORDERED: MIDAZOLAM INJ 2MG/2ML VIAL (J2250 PER 1MG) As Ordered ONE (14:05)
[2021-09-10] MEDS ORDERED: ROCURONIUM BROMIDE 50 MG/5 ML VIAL As Ordered ONE (14:05)
[2021-09-10] MEDS ORDERED: ONDANSETRON 4MG 2ML VIAL IV PRN (14:15)
[2021-09-10] MEDS ORDERED: PERCOCET 5MG/325MG TAB PO PRN ×2 (14:25)
[2021-09-10] MEDS: LR 1,000 ML IV SCH (18:47)
[2021-09-10] MEDS: ASPIRIN 81MG ENTERIC TABLET PO SCH (21:00)
[2021-09-10] MEDS: ROSUVASTATIN 10 MG TAB (CRESTOR) PO SCH (21:00)
[2021-09-11] MEDS: LR 1,000 ML IV SCH (00:20)
[2021-09-11 01:00] VITALS: BP 101/55
[2021-09-11] MEDS: NS 1,000 ML IV SCH (03:20)
[2021-09-11 05:50] LABS: BASO % 0.2 % (0.0-1.0); EOS % 0.1 % (0.0-3.0); HEMATOCRIT 29.3 % (36.0-47.0); HEMOGLOBIN 8.9 g/dl (12.0-15.5); LYMPH # 0.7 10^3/uL (1.5-5.0); LYMPH % 8.5 % (24.0-44.0); MEAN CORPUSCULAR HEMOGLOBIN 26.3 pg (27.0-33.0); MEAN CORPUSCULAR HGB CONC 30.4 g/dl (32.0-36.5); MEAN CORPUSCULAR VOLUME 86.4 fl (80.0-96.0); MONO # 0.9 10^3/uL (0.0-0.8); MONO % 9.9 % (2.0-8.0); NEUTROPHILS # 7.1 10^3/uL (1.5-8.5); PLATELET COUNT, AUTOMATED 244 10^3/uL (150-450); RED BLOOD COUNT 3.39 10^6/uL (4.00-5.40); WHITE BLOOD COUNT 8.8 10^3/uL (4.0-10.0)
[2021-09-11 05:56] VITALS: BP 112/63
[2021-09-11 06:17] LABS: CALCIUM LEVEL 8.8 MG/DL (8.8-10.2); CREATININE FOR GFR 1.23 MG/DL (0.55-1.30); GLOMERULAR FILTRATION RATE 44.5 (>32); POTASSIUM SERUM 5.4 MEQ/L (3.5-5.1)
[2021-09-11] MEDS: VITAMIN D 1,000 INTERNATIONAL UNITS TABLET PO SCH (09:01)
[2021-09-11] MEDS: ASPIRIN 81MG ENTERIC TABLET PO SCH ×2 (09:01→21:06)
[2021-09-11] MEDS: DOCUSATE SODIUM 100MG CAPSULE PO SCH ×2 (09:01→21:00)
[2021-09-11] MEDS: SERTRALINE 100 MG TAB PO SCH (09:02)
[2021-09-11] MEDS: traMADol 50 MG TAB PO PRN (09:04)
[2021-09-11 14:00] VITALS: BP 98/50
[2021-09-11] MEDS ORDERED: SOD POLYSTYRENE SULFONATE SUSP 15GM 60ML UD PO ONE (15:00)
[2021-09-11 20:16] VITALS: BP 99/51
[2021-09-11] MEDS: ROSUVASTATIN 10 MG TAB (CRESTOR) PO SCH (21:07)
[2021-09-11] MEDS: RAMELTEON 8 MG TAB (ROZEREM) PO PRN (21:09)
[2021-09-12 05:38] VITALS: BP 133/63
[2021-09-12 06:55] LABS: BASO % 0.6 % (0.0-1.0); EOS # 0.4 10^3/uL (0.0-0.5); EOS % 5.9 % (0.0-3.0); HEMATOCRIT 30.1 % (36.0-47.0); HEMOGLOBIN 8.9 g/dl (12.0-15.5); LYMPH # 1.5 10^3/uL (1.5-5.0); LYMPH % 22.4 % (24.0-44.0); MEAN CORPUSCULAR HEMOGLOBIN 25.9 pg (27.0-33.0); MEAN CORPUSCULAR HGB CONC 29.6 g/dl (32.0-36.5); MEAN CORPUSCULAR VOLUME 87.8 fl (80.0-96.0); MONO # 0.7 10^3/uL (0.0-0.8); MONO % 10.8 % (2.0-8.0); NEUTROPHILS # 4.1 10^3/uL (1.5-8.5); NEUTROPHILS % 59.9 % (36.0-66.0); PLATELET COUNT, AUTOMATED 241 10^3/uL (150-450); RED BLOOD COUNT 3.43 10^6/uL (4.00-5.40); WHITE BLOOD COUNT 6.8 10^3/uL (4.0-10.0)
[2021-09-12 07:16] LABS: CALCIUM LEVEL 8.8 MG/DL (8.8-10.2); CREATININE FOR GFR 1.23 MG/DL (0.55-1.30); GLOMERULAR FILTRATION RATE 44.5 (>32); MAGNESIUM LEVEL 1.8 MG/DL (1.8-2.4); POTASSIUM SERUM 4.9 MEQ/L (3.5-5.1)
[2021-09-12] MEDS: ASPIRIN 81MG ENTERIC TABLET PO SCH ×2 (08:15→20:30)
[2021-09-12] MEDS: VITAMIN D 1,000 INTERNATIONAL UNITS TABLET PO SCH (08:15)
[2021-09-12] MEDS: SERTRALINE 100 MG TAB PO SCH (08:15)
[2021-09-12] MEDS: DOCUSATE SODIUM 100MG CAPSULE PO SCH ×2 (08:15→20:30)
[2021-09-12] MEDS: traMADol 50 MG TAB PO PRN (09:52)
[2021-09-12 14:00] VITALS: BP 127/66
[2021-09-12] MEDS: ROSUVASTATIN 10 MG TAB (CRESTOR) PO SCH (20:30)
[2021-09-12 22:00] VITALS: BP 124/66
[2021-09-13 06:00] VITALS: BP 132/71
[2021-09-13 06:43] LABS: BASO % 0.6 % (0.0-1.0); EOS # 0.4 10^3/uL (0.0-0.5); EOS % 5.3 % (0.0-3.0); HEMATOCRIT 31.5 % (36.0-47.0); HEMOGLOBIN 9.6 g/dl (12.0-15.5); LYMPH % 14.4 % (24.0-44.0); MEAN CORPUSCULAR HEMOGLOBIN 26.4 pg (27.0-33.0); MEAN CORPUSCULAR HGB CONC 30.5 g/dl (32.0-36.5); MEAN CORPUSCULAR VOLUME 86.8 fl (80.0-96.0); MONO # 0.7 10^3/uL (0.0-0.8); MONO % 10.1 % (2.0-8.0); NEUTROPHILS % 69.2 % (36.0-66.0); PLATELET COUNT, AUTOMATED 286 10^3/uL (150-450); RED BLOOD COUNT 3.63 10^6/uL (4.00-5.40); WHITE BLOOD COUNT 7.2 10^3/uL (4.0-10.0)
[2021-09-13 07:18] LABS: CALCIUM LEVEL 9.1 MG/DL (8.8-10.2); CREATININE FOR GFR 1.16 MG/DL (0.55-1.30); GLOMERULAR FILTRATION RATE 47.6 (>32); MAGNESIUM LEVEL 1.6 MG/DL (1.8-2.4); POTASSIUM SERUM 4.4 MEQ/L (3.5-5.1)
[2021-09-13] MEDS: SERTRALINE 100 MG TAB PO SCH (08:48)
[2021-09-13] MEDS: ASPIRIN 81MG ENTERIC TABLET PO SCH ×2 (08:48→21:14)
[2021-09-13] MEDS: VITAMIN D 1,000 INTERNATIONAL UNITS TABLET PO SCH (08:48)
[2021-09-13] MEDS: DOCUSATE SODIUM 100MG CAPSULE PO SCH ×2 (08:48→21:14)
[2021-09-13 08:49] VITALS: BP 130/71
[2021-09-13] MEDS: MAG SULF 1GM/100ML (MAG RUN) 1 GM in IV 1 EA IV SCH (12:26)
[2021-09-13] MEDS: ROSUVASTATIN 10 MG TAB (CRESTOR) PO SCH (21:14)
[2021-09-13] MEDS: RAMELTEON 8 MG TAB (ROZEREM) PO PRN (21:14)
[2021-09-14 06:00] VITALS: BP 153/77
[2021-09-14 06:33] LABS: BASO % 0.4 % (0.0-1.0); EOS # 0.1 10^3/uL (0.0-0.5); EOS % 1.3 % (0.0-3.0); HEMOGLOBIN 9.7 g/dl (12.0-15.5); LYMPH # 0.5 10^3/uL (1.5-5.0); LYMPH % 7.4 % (24.0-44.0); MEAN CORPUSCULAR HEMOGLOBIN 26.6 pg (27.0-33.0); MEAN CORPUSCULAR HGB CONC 32.3 g/dl (32.0-36.5); MEAN CORPUSCULAR VOLUME 82.4 fl (80.0-96.0); MONO # 0.6 10^3/uL (0.0-0.8); MONO % 8.6 % (2.0-8.0); NEUTROPHILS # 5.5 10^3/uL (1.5-8.5); NEUTROPHILS % 81.7 % (36.0-66.0); PLATELET COUNT, AUTOMATED 246 10^3/uL (150-450); RED BLOOD COUNT 3.64 10^6/uL (4.00-5.40); WHITE BLOOD COUNT 6.7 10^3/uL (4.0-10.0)
[2021-09-14 07:19] LABS: CALCIUM LEVEL 8.9 MG/DL (8.8-10.2); CREATININE FOR GFR 1.08 MG/DL (0.55-1.30); GLOMERULAR FILTRATION RATE 51.7 (>32); MAGNESIUM LEVEL 2.1 MG/DL (1.8-2.4)
[2021-09-14] MEDS: DOCUSATE SODIUM 100MG CAPSULE PO SCH ×2 (08:22→20:28)
[2021-09-14] MEDS: VITAMIN D 1,000 INTERNATIONAL UNITS TABLET PO SCH (08:22)
[2021-09-14] MEDS: SERTRALINE 100 MG TAB PO SCH (08:22)
[2021-09-14] MEDS: ASPIRIN 81MG ENTERIC TABLET PO SCH ×2 (08:22→20:28)
[2021-09-14] MEDS: ROSUVASTATIN 10 MG TAB (CRESTOR) PO SCH (20:28)
[2021-09-14] MEDS: RAMELTEON 8 MG TAB (ROZEREM) PO PRN (20:31)
[2021-09-15 06:00] VITALS: BP 125/72
[2021-09-15 08:19] LABS: BASO % 0.6 % (0.0-1.0); EOS # 0.3 10^3/uL (0.0-0.5); EOS % 3.4 % (0.0-3.0); HEMATOCRIT 32.1 % (36.0-47.0); HEMOGLOBIN 10.1 g/dl (12.0-15.5); LYMPH # 0.7 10^3/uL (1.5-5.0); LYMPH % 10.1 % (24.0-44.0); MEAN CORPUSCULAR HEMOGLOBIN 26.4 pg (27.0-33.0); MEAN CORPUSCULAR HGB CONC 31.5 g/dl (32.0-36.5); MEAN CORPUSCULAR VOLUME 83.8 fl (80.0-96.0); MONO % 13.1 % (2.0-8.0); NEUTROPHILS # 5.3 10^3/uL (1.5-8.5); NEUTROPHILS % 72.4 % (36.0-66.0); PLATELET COUNT, AUTOMATED 262 10^3/uL (150-450); RED BLOOD COUNT 3.83 10^6/uL (4.00-5.40); WHITE BLOOD COUNT 7.3 10^3/uL (4.0-10.0)
[2021-09-15 08:48] LABS: CALCIUM LEVEL 9.1 MG/DL (8.8-10.2); CREATININE FOR GFR 1.2 MG/DL (0.55-1.30); GLOMERULAR FILTRATION RATE 45.8 (>32); MAGNESIUM LEVEL 1.9 MG/DL (1.8-2.4)
[2021-09-15] MEDS: SERTRALINE 100 MG TAB PO SCH (08:52)
[2021-09-15] MEDS: VITAMIN D 1,000 INTERNATIONAL UNITS TABLET PO SCH (08:52)
[2021-09-15] MEDS: DOCUSATE SODIUM 100MG CAPSULE PO SCH ×2 (08:53→21:00)
[2021-09-15] MEDS: ASPIRIN 81MG ENTERIC TABLET PO SCH ×2 (08:54→20:17)
[2021-09-15] MEDS: RAMELTEON 8 MG TAB (ROZEREM) PO PRN (20:17)
[2021-09-15] MEDS: ROSUVASTATIN 10 MG TAB (CRESTOR) PO SCH (20:18)
[2021-09-16 06:00] VITALS: BP 130/72
[2021-09-16 06:36] LABS: BASO # 0.1 10^3/uL (0.0-0.2); BASO % 0.8 % (0.0-1.0); EOS # 0.3 10^3/uL (0.0-0.5); EOS % 4.4 % (0.0-3.0); HEMATOCRIT 30.3 % (36.0-47.0); HEMOGLOBIN 9.7 g/dl (12.0-15.5); LYMPH # 0.9 10^3/uL (1.5-5.0); LYMPH % 11.6 % (24.0-44.0); MEAN CORPUSCULAR HEMOGLOBIN 26.7 pg (27.0-33.0); MEAN CORPUSCULAR VOLUME 83.5 fl (80.0-96.0); NEUTROPHILS # 5.1 10^3/uL (1.5-8.5); NEUTROPHILS % 68.7 % (36.0-66.0); PLATELET COUNT, AUTOMATED 248 10^3/uL (150-450); RED BLOOD COUNT 3.63 10^6/uL (4.00-5.40); WHITE BLOOD COUNT 7.4 10^3/uL (4.0-10.0)
[2021-09-16 07:08] LABS: CALCIUM LEVEL 8.5 MG/DL (8.8-10.2); CREATININE FOR GFR 1.21 MG/DL (0.55-1.30); GLOMERULAR FILTRATION RATE 45.4 (>32); MAGNESIUM LEVEL 1.8 MG/DL (1.8-2.4); POTASSIUM SERUM 3.8 MEQ/L (3.5-5.1)
[2021-09-16] MEDS: ASPIRIN 81MG ENTERIC TABLET PO SCH ×2 (08:56→21:00)
[2021-09-16] MEDS: DOCUSATE SODIUM 100MG CAPSULE PO SCH ×2 (08:57→19:54)
[2021-09-16] MEDS: VITAMIN D 1,000 INTERNATIONAL UNITS TABLET PO SCH (08:57)
[2021-09-16] MEDS: SERTRALINE 100 MG TAB PO SCH (08:58)
[2021-09-16] MEDS: ROSUVASTATIN 10 MG TAB (CRESTOR) PO SCH (21:00)
[2021-09-16] MEDS: RAMELTEON 8 MG TAB (ROZEREM) PO PRN (21:00)
[2021-09-17 06:00] VITALS: BP 107/60
[2021-09-17 09:00] VITALS: BP 102/62
[2021-09-17] MEDS: SERTRALINE 100 MG TAB PO SCH (09:12)
[2021-09-17] MEDS: ASPIRIN 81MG ENTERIC TABLET PO SCH (09:12)
[2021-09-17] MEDS: VITAMIN D 1,000 INTERNATIONAL UNITS TABLET PO SCH (09:12)
[2021-09-17] MEDS: DOCUSATE SODIUM 100MG CAPSULE PO SCH (09:12)
[2021-09-17] MEDS ORDERED: COLA100C5 PO (12:41)
[2021-09-17] MEDS ORDERED: ASPI-551 PO (12:41)
== END 2021-09-17 14:40 | disposition home or self-care (01) | DRG 561 ==
LOC: M MS5PR 16:08
PROVIDERS: ADMIT Internal Medicine; ATTEND Internal Medicine
PROC: 2W3 Placement, Anatomical Regions, Immobilization (ICD-10-PCS; 2021-09-10)
PROC: 0SSBXZZ Reposition Left Hip Joint, External Approach (ICD-10-PCS; principal; 2021-09-10 15:30)
DX: T84.021A Dislocation of internal left hip prosthesis, initial encounter (principal); I12.9 Hypertensive chronic kidney disease with stage 1 through stage 4 chronic kidney disease, or unspecified chronic kidney disease; E78.5 Hyperlipidemia, unspecified; N18.30 Chronic kidney disease, stage 3 unspecified; F39 Unspecified mood [affective] disorder; Z96.642 Presence of left artificial hip joint; Z98.49 Cataract extraction status, unspecified eye; Z90.49 Acquired absence of other specified parts of digestive tract; D64.9 Anemia, unspecified; Z79.899 Other long term (current) drug therapy; Z88.5 Allergy status to narcotic agent; E83.42 Hypomagnesemia; E87.5 Hyperkalemia; W01.0XXA Fall on same level from slipping, tripping and stumbling without subsequent striking against object, initial encounter; Y92.009 Unspecified place in unspecified non-institutional (private) residence as the place of occurrence of the external cause

== ENCOUNTER → 2021-10-17 | Outpatient (CLI) | payer MEDICARE ==
[~2021-10-17] MED LIST changes: +COLA100C5 PO
== END ==
LOC: M SOG 09:59
PROVIDERS: ATTEND Orthopaedic Surgery
DX: T84.12 Displacement of internal fixation device of bones of limb (principal); Z96.652 Presence of left artificial knee joint; M16.11 Unilateral primary osteoarthritis, right hip

== ENCOUNTER → 2021-11-10 | Outpatient (REF) | payer MEDICARE | LOC: M LAB REF 15:06 | PROVIDERS: ATTEND Internal Medicine | DX: R19.7 Diarrhea, unspecified (principal) ==

== ENCOUNTER → 2021-11-28 | Outpatient (CLI) | payer MEDICARE | LOC: M SOG 08:13 | PROVIDERS: ATTEND Orthopaedic Surgery | DX: Z96.642 Presence of left artificial hip joint (principal) ==

== ENCOUNTER → 2022-06-07 | Outpatient (CLI) | payer MEDICARE | LOC: M SOG 07:57 | PROVIDERS: ATTEND Orthopaedic Surgery | DX: Z96.642 Presence of left artificial hip joint (principal) ==

== ENCOUNTER → 2023-05-20 | Outpatient (CLI) | payer MEDICARE ==
[~2023-05-20] MED LIST changes: +LETR2.5T2 PO; -OLME20TA2 PO; +OLME20TA50 PO; +OMEG350C PO
== END ==
LOC: M ONCR 13:46
PROVIDERS: ATTEND General Practice
DX: C50.411 Malignant neoplasm of upper-outer quadrant of right female breast (principal); Z79.899 Other long term (current) drug therapy; Z80.1 Family history of malignant neoplasm of trachea, bronchus and lung; Z80.51 Family history of malignant neoplasm of kidney; Z88.5 Allergy status to narcotic agent

== ENCOUNTER → 2023-05-23 | Outpatient (REF) | payer MEDICARE ==
[2023-05-23 13:46] LABS: PHOSPHORUS LEVEL 3.6 MG/DL (2.4-5.1)
[2023-05-23 13:47] LABS: PTH INTACT 61.6 PG/ML (18.5-88.0)
== END ==
LOC: M LAB REF 12:31
PROVIDERS: ATTEND Internal Medicine
DX: N18.30 Chronic kidney disease, stage 3 unspecified (principal)

== ENCOUNTER 2023-06-05 13:51 | Outpatient (RCR) | payer MEDICARE ==
[~2023-06-05 13:51] MED LIST changes: +ROSU5TAB40 PO; -ROSU5TAB5 PO
== END 2023-06-24 ==
LOC: M ONCR 13:51
PROVIDERS: ATTEND General Practice
DX: Z51.0 Encounter for antineoplastic radiation therapy (principal); C50.411 Malignant neoplasm of upper-outer quadrant of right female breast

== ENCOUNTER → 2023-07-25 | Outpatient (RCR) | payer MEDICARE ==
[~2023-07-25] MED LIST changes: +NAPR-855
== END ==
LOC: M ONCR 06-25 14:32
PROVIDERS: ATTEND General Practice
DX: Z51.0 Encounter for antineoplastic radiation therapy (principal); C50.411 Malignant neoplasm of upper-outer quadrant of right female breast

== ENCOUNTER → 2023-07-28 | Outpatient (CLI) | payer MEDICARE | LOC: M SOG 07:55 | PROVIDERS: ATTEND Orthopaedic Surgery | DX: Z96.642 Presence of left artificial hip joint (principal); Z47.1 Aftercare following joint replacement surgery; Z53.9 Procedure and treatment not carried out, unspecified reason ==

== ENCOUNTER → 2023-07-30 | Outpatient (CLI) | payer MEDICARE | LOC: M SOG 07:53 | PROVIDERS: ATTEND Orthopaedic Surgery | DX: Z96.642 Presence of left artificial hip joint (principal); Z47.1 Aftercare following joint replacement surgery; M51.37 Other intervertebral disc degeneration, lumbosacral region; M16.11 Unilateral primary osteoarthritis, right hip ==

== ENCOUNTER → 2024-06-21 | Outpatient (REF) | payer MEDICARE ==
[~2024-06-21] MED LIST changes: +ANAS1TAB2 PO; +NAPR-1405 PO; -NAPR500T6 PO; -ROSU5TAB40 PO; +ROSU5TAB49 PO
[2024-06-21 13:46] LABS: PHOSPHORUS LEVEL 4.3 MG/DL (2.4-5.1); PTH INTACT 86.4 PG/ML (18.5-88.0); URIC ACID 8.7 MG/DL (3.1-7.8)
== END ==
LOC: M LAB REF 12:47
PROVIDERS: ATTEND Internal Medicine
DX: N18.30 Chronic kidney disease, stage 3 unspecified (principal); D51.9 Vitamin B12 deficiency anemia, unspecified